=== PATIENT | female | born 1940 | race Caucasian/White ===

== ENCOUNTER → 2017-07-05 | Outpatient (CLI) | payer OTHER ==
--- NOTE | 2017-07-05 14:56 | REP ---
Left tib-fib series: Two views. History: Lower leg injury. Pain radiating up and down the leg. History of an old fracture. No comparison radiographs. Findings: There is mild old post-traumatic deformity from healed distal fibular and distal tibial diaphyseal fractures. No acute fracture is seen. There is patellofemoral spurring. Medial compartment spurring is seen at the knee as well. Impression: Old healed distal tibial and fibular fractures. No acute bony abnormality. Signed by Indio Kaur MD 07/05/2017 03:28 P
== END ==
LOC: M WUC 14:24
PROVIDERS: ATTEND Physician Assistant
DX: M79.662 Pain in left lower leg (principal)

== ENCOUNTER 2018-02-02 18:04 | Inpatient (IN) | payer OTHER ==
[2018-02-02 19:51] LABS: BASO # 0.1 10^3/uL (0.0-0.2); BASO % 0.9 % (0.0-1.0); EOS # 0.1 10^3/uL (0.0-0.50); EOS % 1.7 % (0.0-3.0); HEMATOCRIT 34.1 % (36.0-47.0); HEMOGLOBIN 11.8 g/dl (12.0-15.5); IMMATURE GRANULOCYTE % 0.3 % (0-3.0); LYMPH % 26.4 % (24.0-44.0); MEAN CORPUSCULAR HEMOGLOBIN 30.4 pg (27.0-33.0); MEAN CORPUSCULAR HGB CONC 34.6 g/dl (32.0-36.5); MEAN CORPUSCULAR VOLUME 87.9 fl (80.0-96.0); MONO # 0.8 10^3/uL (0.0-0.8); MONO % 9.7 % (0.0-5.0); NEUTROPHILS # 4.7 10^3/uL (1.8-7.7); PLATELET COUNT, AUTOMATED 278 10^3/uL (150-450); RED BLOOD COUNT 3.88 10^6/uL (4.00-5.40); RED CELL DISTRIBUTION WIDTH 11.2 % (11.5-14.5); WHITE BLOOD COUNT 7.7 10^3/uL (4.0-10.0)
[2018-02-02 20:00] LABS: INR 0.97
[2018-02-02 20:01] LABS: PARTIAL THROMBOPLASTIN TIME 28.8 SECONDS (26.8-37.9)
[2018-02-02 20:02] LABS: ANION GAP 7 MEQ/L (8-16); BLOOD UREA NITROGEN 13 MG/DL (7-18); CALCIUM LEVEL 9.1 MG/DL (8.8-10.2); CARBON DIOXIDE LEVEL 29 MEQ/L (21-32); CHLORIDE LEVEL 93 MEQ/L (98-107); CREATININE FOR GFR 0.86 MG/DL (0.55-1.30); GLOMERULAR FILTRATION RATE > 60.0 (>39); GLUCOSE, FASTING 119 MG/DL (70-100); POTASSIUM SERUM 3.7 MEQ/L (3.5-5.1); SODIUM LEVEL 129 MEQ/L (136-145)
[2018-02-02] MEDS: NS 500 ML IV (20:15)
[2018-02-02] MEDS: OMEPRAZOLE 20 MG CAP PO (21:00)
[2018-02-02] MEDS: SUCRALFATE 1 GM TAB PO (21:00)
[2018-02-02 22:11] LABS: KETONE, URINE AUTO RFX NEGATIVE (NEGATIVE); NITRITE, URINE AUTO RFX NEGATIVE (NEGATIVE); RBC, URINE AUTO RFX 0 /HPF (0-3); SPECIFIC GRAVITY UR AUTO RFX 1.002 (1.002-1.035); SQUAM EPITHELIAL CELL UR AURFX 0 /HPF (0-6); WBC, URINE AUTO RFX 3 /HPF (0-3)
[2018-02-02 22:12] LABS: LEUKOCYTE ESTERASE UR AUTO RFX TRACE (NEGATIVE)
[2018-02-02] MEDS: ASPIRIN 325 MG TAB PO (22:15)
[2018-02-02] MEDS: ATORVASTATIN 20 MG TAB PO (23:15)
[2018-02-02 23:38] LABS: CK-MB VALUE MASS 3.5 NG/ML (<3.6); CPK CREATINE PHOSPHOKINASE 118 U/L (26-192); MB/CK RELATIVE INDEX 2.96 (< OR =4); TROPONIN I < 0.02 NG/ML (< 0.10)
[2018-02-03] MEDS ORDERED: POLYVINYL ALCOHOL OPHTH SOLN 15 ML(LIQUITEARS) OU
[2018-02-03] MEDS ORDERED: ONDANSETRON 4MG/2ML VIAL (J2405) IV (00:15)
[2018-02-03 00:51] LABS: ALBUMIN 3.9 GM/DL (3.2-5.2); ALBUMIN/GLOBULIN RATIO 1.26 (1.00-1.93); ALKALINE PHOSPHATASE 76 U/L (45-117); ALT/SGPT 24 U/L (12-78); AST/SGOT 26 U/L (7-37); BILIRUBIN,DIRECT 0.3 MG/DL (0.0-0.2); BILIRUBIN,TOTAL 1.3 MG/DL (0.2-1.0); MAGNESIUM LEVEL 2.1 MG/DL (1.8-2.4)
[2018-02-03 01:43] LABS: CPK CREATINE PHOSPHOKINASE 87 U/L (26-192); TROPONIN I < 0.02 NG/ML (< 0.10)
[2018-02-03 01:44] LABS: CK-MB VALUE MASS 2.6 NG/ML (<3.6); MB/CK RELATIVE INDEX 2.98 (< OR =4)
[2018-02-03] MEDS: hydrALAZINE INJ 20 MG/ML VIAL IV ×3 (03:21→16:00)
[2018-02-03] MEDS: LEVOTHYROXINE 50MCG TABLET (0.05MG) PO (05:48)
[2018-02-03] MEDS: ACETAMINOPHEN TAB 650MG DOSE (2X325MG) PO (05:52)
[2018-02-03 07:40] LABS: HEMATOCRIT 31.5 % (36.0-47.0); HEMOGLOBIN 10.9 g/dl (12.0-15.5); MEAN CORPUSCULAR HEMOGLOBIN 30.3 pg (27.0-33.0); MEAN CORPUSCULAR HGB CONC 34.6 g/dl (32.0-36.5); MEAN CORPUSCULAR VOLUME 87.5 fl (80.0-96.0); PLATELET COUNT, AUTOMATED 232 10^3/uL (150-450); RED CELL DISTRIBUTION WIDTH 11.1 % (11.5-14.5); WHITE BLOOD COUNT 4.7 10^3/uL (4.0-10.0)
[2018-02-03 08:01] LABS: ANION GAP 6 MEQ/L (8-16); BLOOD UREA NITROGEN 10 MG/DL (7-18); CALCIUM LEVEL 8.6 MG/DL (8.8-10.2); CARBON DIOXIDE LEVEL 27 MEQ/L (21-32); CHLORIDE LEVEL 102 MEQ/L (98-107); CPK CREATINE PHOSPHOKINASE 68 U/L (26-192); CREATININE FOR GFR 0.67 MG/DL (0.55-1.30); GLOMERULAR FILTRATION RATE > 60.0 (>39); GLUCOSE, FASTING 89 MG/DL (70-100); POTASSIUM SERUM 3.7 MEQ/L (3.5-5.1); SODIUM LEVEL 135 MEQ/L (136-145); TROPONIN I < 0.02 NG/ML (< 0.10)
[2018-02-03 08:02] LABS: CK-MB VALUE MASS 2.7 NG/ML (<3.6); MB/CK RELATIVE INDEX 3.97 (< OR =4)
[2018-02-03] MEDS: ENOXAPARIN 30 MG/0.3 ML SYR (J1650) SC (08:28)
[2018-02-03] MEDS: ATORVASTATIN 20 MG TAB PO (08:30)
[2018-02-03] MEDS: ASPIRIN 81 MG ENTERIC TAB PO (08:30)
[2018-02-03] MEDS: OMEPRAZOLE 20 MG CAP PO ×2 (08:30→20:51)
[2018-02-03] MEDS: SUCRALFATE 1 GM TAB PO (08:30)
[2018-02-03] MEDS: DOCUSATE SODIUM 100 MG CAP PO ×2 (08:30→20:51)
[2018-02-03] MEDS: FLUTICASONE PROP 0.05% NASAL SPRAY 16 GM (FLONASE) ×2 (08:31→20:52)
[2018-02-03] MEDS: ANALGESIC BALM CRM 120 GM TOP (09:25)
[2018-02-03] MEDS: SUCRALFATE SUSP 1GM/10ML UD PO ×3 (12:29→20:51)
[2018-02-03] MEDS: LISINOPRIL 20 MG TAB PO (17:32)
[2018-02-03] MEDS: hydroCHLOROthiazide 12.5 MG CAPSULE PO (17:32)
[2018-02-03] MEDS ORDERED: ENTER DRUG NAME HERE (PATIENT'S OWN MED) OU (21:00)
[2018-02-04] MEDS: ACETAMINOPHEN TAB 650MG DOSE (2X325MG) PO (03:48)
[2018-02-04] MEDS: LEVOTHYROXINE 50MCG TABLET (0.05MG) PO (05:54)
[2018-02-04 06:04] LABS: BASO # 0.1 10^3/uL (0.0-0.2); BASO % 1.7 % (0.0-1.0); EOS # 0.2 10^3/uL (0.0-0.50); EOS % 3.3 % (0.0-3.0); HEMATOCRIT 32.7 % (36.0-47.0); IMMATURE GRANULOCYTE % 0.2 % (0-3.0); LYMPH # 1.1 10^3/uL (1.5-4.5); LYMPH % 22.4 % (24.0-44.0); MEAN CORPUSCULAR HEMOGLOBIN 30.1 pg (27.0-33.0); MEAN CORPUSCULAR HGB CONC 33.6 g/dl (32.0-36.5); MEAN CORPUSCULAR VOLUME 89.6 fl (80.0-96.0); MONO # 0.7 10^3/uL (0.0-0.8); MONO % 13.6 % (0.0-5.0); NEUTROPHILS # 2.8 10^3/uL (1.8-7.7); NEUTROPHILS % 58.8 % (36.0-66.0); PLATELET COUNT, AUTOMATED 240 10^3/uL (150-450); RED BLOOD COUNT 3.65 10^6/uL (4.00-5.40); RED CELL DISTRIBUTION WIDTH 11.1 % (11.5-14.5); WHITE BLOOD COUNT 4.8 10^3/uL (4.0-10.0)
[2018-02-04 06:33] LABS: ANION GAP 7 MEQ/L (8-16); BLOOD UREA NITROGEN 8 MG/DL (7-18); CALCIUM LEVEL 8.3 MG/DL (8.8-10.2); CARBON DIOXIDE LEVEL 24 MEQ/L (21-32); CHLORIDE LEVEL 103 MEQ/L (98-107); CREATININE FOR GFR 0.63 MG/DL (0.55-1.30); GLOMERULAR FILTRATION RATE > 60.0 (>39); GLUCOSE, FASTING 88 MG/DL (70-100); POTASSIUM SERUM 3.8 MEQ/L (3.5-5.1); SODIUM LEVEL 134 MEQ/L (136-145)
[2018-02-04] MEDS: LISINOPRIL 20 MG TAB PO (08:31)
[2018-02-04] MEDS: OMEPRAZOLE 20 MG CAP PO (08:31)
[2018-02-04] MEDS: SUCRALFATE SUSP 1GM/10ML UD PO ×2 (08:31→11:07)
[2018-02-04] MEDS: DOCUSATE SODIUM 100 MG CAP PO (08:31)
[2018-02-04] MEDS: hydroCHLOROthiazide 12.5 MG CAPSULE PO (08:31)
[2018-02-04] MEDS: ASPIRIN 81 MG ENTERIC TAB PO (08:31)
[2018-02-04] MEDS: FLUTICASONE PROP 0.05% NASAL SPRAY 16 GM (FLONASE) (08:32)
[2018-02-04] MEDS: ENOXAPARIN 30 MG/0.3 ML SYR (J1650) SC (08:32)
[2018-02-04] MEDS: ATORVASTATIN 20 MG TAB PO (11:07)
== END 2018-02-04 12:00 | disposition home or self-care (01) | DRG 69 ==
LOC: M ED INP 23:56 → M PCU 02-03 03:04 → M ED 18:04
DX: G45.9 Transient cerebral ischemic attack, unspecified (principal); I10 Essential (primary) hypertension; E78.5 Hyperlipidemia, unspecified; E03.9 Hypothyroidism, unspecified; M19.90 Unspecified osteoarthritis, unspecified site; H40.9 Unspecified glaucoma; K58.9 Irritable bowel syndrome, unspecified; Z88.5 Allergy status to narcotic agent; Z88.0 Allergy status to penicillin; Z88.8 Allergy status to other drugs, medicaments and biological substances; K21.9 Gastro-esophageal reflux disease without esophagitis; K57.30 Diverticulosis of large intestine without perforation or abscess without bleeding; K22.70 Barrett's esophagus without dysplasia

== ENCOUNTER → 2018-10-06 | Outpatient (REF) | payer MEDICARE, OTHER ==
[~2018-10-06] MED LIST: ASPI1TAB PO; ASPI81TAEC PO; ATOR1TAB21 PO; ATOR40TA75 PO; BIMA01SOL; BIMA01SOL OU; BIOF4GEL2 EXT; LEVO125T4; LEVO50TA5 PO; LISI10TA4 PO; LISI20TA PO; OMEP20CA3 PO; PARO10TA3 PO; PARO5TAB; SUCR1TAB56; SUCR1TAB56 PO; SYNT50TA PO; SYST1SOL OU
== END ==
LOC: M SFHCPLAZ 09:57
PROVIDERS: ATTEND Dermatology
DX: L57.0 Actinic keratosis (principal); L56.8 Other specified acute skin changes due to ultraviolet radiation

== ENCOUNTER 2019-05-27 19:45 | Inpatient (IN) | payer MEDICARE, OTHER ==
[~2019-05-27] VITALS: Ht 154.9 cm; Wt 61.4 kg
[~2019-05-27 19:45] MED LIST changes: -ASPI1TAB PO; +ASPI81TA26 PO; -LISI20TA PO; +LISI20TA19 PO; +OMEP1CAP73 PO; -OMEP20CA3 PO
[2019-05-27] MEDS ORDERED: GABA-1171 (20:01)
[2019-05-27] MEDS ORDERED: TERA5CAP3 (20:01)
[2019-05-27 20:26] LABS: BASO # 0.1 10^3/uL (0.0-0.2); EOS # 0.1 10^3/uL (0.0-0.5); EOS % 2.6 % (0.0-3.0); HEMATOCRIT 32.7 % (36.0-47.0); HEMOGLOBIN 10.6 g/dl (12.0-15.5); LYMPH # 1.5 10^3/uL (1.5-5.0); LYMPH % 29.2 % (24.0-44.0); MEAN CORPUSCULAR HEMOGLOBIN 28.9 pg (27.0-33.0); MEAN CORPUSCULAR HGB CONC 32.4 g/dl (32.0-36.5); MEAN CORPUSCULAR VOLUME 89.1 fl (80.0-96.0); MONO # 0.5 10^3/uL (0.0-0.8); MONO % 10.7 % (0.0-5.0); NEUTROPHILS # 2.8 10^3/uL (1.5-8.5); NEUTROPHILS % 56.3 % (36.0-66.0); PLATELET COUNT, AUTOMATED 179 10^3/uL (150-450); RED BLOOD COUNT 3.67 10^6/uL (4.00-5.40)
[2019-05-27 20:37] LABS: INR 1.06; PROTHROMBIN TIME 13.5 SECONDS (11.8-14.0)
--- NOTE | 2019-05-27 20:42 | REPVR ---
EXAM: CT Head Without Contrast EXAM DATE/TIME: 05/27/2019 8:18 PM CLINICAL HISTORY: 79 years old, female; Syncope and collapse TECHNIQUE: Imaging protocol: Computed tomography of the head without contrast. Radiation optimization: All CT scans at this facility use at least one of these dose optimization techniques: automated exposure control; mA and/or kV adjustment per patient size (includes targeted exams where dose is matched to clinical indication); or iterative reconstruction. COMPARISON: CT Head without contrast 04/02/2018 11:35 AM FINDINGS: Brain: There is minimal parenchymal volume loss. White matter changes are demonstrated in the subcortical, centrum semiovale and periventricular white matter consistent with small vessel white matter angiopathic gliosis. Ventricles: Normal. No ventriculomegaly. Bones/joints: There is hyperostosis frontalis interna. Sinuses: Visualized sinuses are unremarkable. No fluid levels. Mastoid air cells: Visualized mastoid air cells are well aerated. Soft tissues: Unremarkable. IMPRESSION: There is minimal parenchymal volume loss. White matter changes are demonstrated in the subcortical, centrum semiovale and periventricular white matter consistent with small vessel white matter angiopathic gliosis. Electronically signed by: Arash James On 05/27/2019 20:42:09 PM
[2019-05-27 21:06] LABS: BLOOD UREA NITROGEN 17 MG/DL (7-18); CALCIUM LEVEL 8.7 MG/DL (8.8-10.2); CARBON DIOXIDE LEVEL 24 MEQ/L (21-32); CHLORIDE LEVEL 107 MEQ/L (98-107); CPK CREATINE PHOSPHOKINASE 133 U/L (26-192); CREATININE FOR GFR 0.98 MG/DL (0.55-1.30); GLOMERULAR FILTRATION RATE 58.4 (>39); GLUCOSE, FASTING 73 MG/DL (70-100); MB/CK RELATIVE INDEX 2.26 (< OR =4); SODIUM LEVEL 140 MEQ/L (136-145); TROPONIN I < 0.02 NG/ML (< 0.10)
[2019-05-27] MEDS ORDERED: OMEP-218 PO (22:10)
[2019-05-27] MEDS ORDERED: BIMA01SOL OU (22:10)
[2019-05-27] MEDS ORDERED: LISI10TA15 PO (22:10)
[2019-05-27] MEDS ORDERED: NEUR100C PO (22:10)
[2019-05-27] MEDS ORDERED: PARO1TAB33 PO (22:10)
[2019-05-27] MEDS ORDERED: TERA5CAP3 PO (22:10)
--- NOTE | 2019-05-27 22:13 | HPEPDOC ---
[facility] Medical History & Physical Date of Admission May 27, 2019 Date of Service: May 27, 2019 Primary Care Physician: A Other Provider Ramiro Ortiz MD Attending Physician: LLOYD CARR MD History and Physical TIME OF SERVICE: 11:15 PM CHIEF COMPLAINT: Fall HISTORY OF PRESENT ILLNESS: This is a 79 old female who presented to the ED for evaluation after falling 6 times over the last 24 hours. She attributes the fall to her legs "not working", reports having decreased sensation in both legs, which is new, and reports that her legs felt "like lead". She did hit her head but denies losing consciousness. After the last fall her children found her lying down on the floor and brought her to the ED. Other new symptoms include urinary incontinence; she feels like she is leaking urine all the time and has to wear pads and diapers. She denies having fecal incontinence, denies having fevers, denies having chills, denies having abdominal pain. REVIEW OF SYSTEMS: 12 point review of systems negative except as listed in HPI PAST MEDICAL/ SURGICAL HISTORY: Spinal stenosis. Chronic hypertension. Hypothyroidism TIA Dyslipidemia Osteoarthritis. Glaucoma IBS GERD Esophageal stricture. Diverticulosis. 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 Status post bladder suspension surgery SOCIAL HISTORY: Former smoker FAMILY HISTORY: Coronary artery disease. Lung cancer. Skin cancer ALLERGIES: Please see below. HOME MEDICATIONS: Please see below. PHYSICAL EXAMINATION: VITAL SIGNS: Please see below. GENERAL APPEARANCE: Slim build, well-developed, not in apparent distress HEENT: Normocephalic, atraumatic, mucous members moist and pink CARDIOVASCULAR: Regular rate and rhythm, no murmurs, rubs or gallops. Radial pulses are intact. There is no lower extremity edema LUNGS: Clear to auscultation bilaterally on room air ABDOMEN: Soft and nontender on palpation. Bowel sounds are hypoactive : Rectal tone intact./Perineal sensation to blunt needle intact MUSCULOSKELETAL: Range of motion intact in all 4 extremities. Straight leg test is negative bilaterally NEUROLOGICAL: Cranial nerves II-12 are grossly intact, speech is not dysarthric, deep tendon reflexes are hyperactive at the right patella tendon. There is no clonus PSYCHIATRIC: Alert and oriented to person, place and time, able to understand and follow commands LABORATORY DATA: See below. EKG showed normal sinus rhythm with a heart rate is 72 IMAGING: CT of the head showed minimal per, volume loss and small vessel white matter angiopathic gliosis. MRI of the lumbar spine shows decreased marrowsignal in the lumbar vertebrae on T1 weighted images consistent with underlying myeloproliferative abnormality of chronic anemia . There is also multilevel foraminal stenosis. It is mild at L2- L3, moderate at L3-L4, severe at L4-L5 and moderate at L5-S1 MRI of the brain showed findings consistent with an acute to subacute left thalamic infarct MRA of the brain showed luminal irregularity in mental cranial carotid arteries bilaterally without evidence of high-grade stenosis MICROBIOLOGY: Please see below. ASSESSMENT: Ms. Rosenberg is a 79-year-old female with a past medical history of TIA, hypertension, hypothyroidism, osteoarthritis, and spinal stenosis, who will be admitted for evaluation of weakness and falls, likely secondary to severe L4-L5 stenosis. PLAN: 1.Acute/ Subacute left thalamic infarct From the CT, MRI and MRI of the head as listed above. Unlikely that the thalamic infarct contributing to the fall Plan: Telemetry/ f/u lipid panel for ACVD risk score, A1C, TSH / f/u neuro checks / permissive hypertension for 24 hours/glycemic goal between 140-180/ PT consult / ASA & statin /Neurology consult 2. Lower extremity weakness and falls secondary to severe L4-L5 central spine stenosis CT of the head did not show any acute process. MRI of the lumbar spine showed severe foraminal stenosis at L4-5 The patient has urinary incontinence but perineal sensation is intact Plan: Decadron /fall precautions/after Ortho eval pt can be evaluated by physical therapy 3. Moderate L5-S1 foraminal stenosis. She has urinary incontinence which has been getting worse recently. UA is unremarkable Perineal sensation to blunt needle is intact. Postvoid residual volume after placing Ritchie is 17 ml Plan: Follow up with Ortho and PT 4. Normocytic normochromic anemia. Hemoglobin at baseline Plan: Follow up with PCP for additional testing 5. Chronic hypertension Plan: Continue the home meds 6. Hypothyroidism Plan: Continue the home meds 7. hx of TIA / Dyslipidemia Plan: Continue the home meds 8. OA Plan: Continue the home meds 9. Low BMI. BMI 19.9 DVT prophylaxis with Lovenox Disposition pending clinical course Vital Signs Vital Signs Date Time Temp Pulse Resp B/P (MAP) Pulse Ox O2 Delivery O2 Flow Rate FiO2 05/27/19 21:47 84 05/27/19 21:46 174/73 (106) 05/27/19 20:32 98 05/27/19 20:13 20 05/27/19 19:46 98.1 Room Air Laboratory Data Labs 24H Laboratory Tests 2 05/27/19 20:12: Immature Granulocyte % (Auto) 0.2, White Blood Count 5.0, Red Blood Count 3.67L, Hemoglobin 10.6L, Hematocrit 32.7L, Mean Corpuscular Volume 89.1, Mean Corpuscular Hemoglobin 28.9, Mean Corpuscular Hemoglobin Concent 32.4, Red Cell Distribution Width 13.1, Platelet Count 179, Neutrophils (%) (Auto) 56.3, Lymphocytes (%) (Auto) 29.2, Monocytes (%) (Auto) 10.7H, Eosinophils (%) (Auto) 2.6, Basophils (%) (Auto) 1.0, Neutrophils # (Auto) 2.8, Lymphocytes # (Auto) 1.5, Monocytes # (Auto) 0.5, Eosinophils # (Auto) 0.1, Basophils # (Auto) 0.1, Nucleated Red Blood Cells % (auto) 0.0, Prothrombin Time 13.5, Prothromb Time International Ratio 1.06, Urine Color STRAW, Urine Appearance CLEAR, Urine pH 5.0, Urine Specific Pitcher 1.004, Urine Protein NEGATIVE, Urine Glucose (UA) NEGATIVE, Urine Ketones NEGATIVE, Urine Blood NEGATIVE, Urine Nitrite NEGATIVE, Urine Bilirubin NEGATIVE, Urine Urobilinogen 0.2, Urine Leukocyte Esterase NEGATIVE, Urine WBC (Auto) 0, Urine RBC (Auto) 1, Urine Hyaline Casts (Auto) 0, Urine Bacteria (Auto) NEGATIVE, Urine Squamous Epithelial Cells 0, Urine Mucus (Auto) SMALL, Urine Sperm (Auto) , Anion Gap 9, Glomerular Filtration Rate 58.4, Blood Urea Nitrogen 17, Creatinine 0.98, Sodium Level 140, Potassium Level 4.0, Chloride Level 107, Carbon Dioxide Level 24, Calcium Level 8.7L, Total Creatine Kinase 133, Creatine Kinase MB 3.0, Creatine Kinase MB Relative Index 2.26, Troponin I < 0.02, Thyroid Stimulating Hormone (TSH) 1.290 05/27/19 20:24: Bedside Glucose (Misc Panel) 79L CBC/BMP Laboratory Tests 05/27/19 20:12 Red Blood Count 3.67 L, Mean Corpuscular Volume 89.1, Mean Corpuscular Hemo globin 28.9, Mean Corpuscular Hemoglobin Concent 32.4, Red Cell Distribution Width 13.1, Neutrophils (%) (Auto) 56.3, Lymphocytes (%) (Auto) 29.2, Monocytes (%) (Auto) 10.7 H, Eosinophils (%) (Auto) 2.6, Basophils (%) (Auto) 1.0, Neutrophils # (Auto) 2.8, Lymphocytes # (Auto) 1.5, Monocytes # (Auto) 0.5, Eosinophils # (Auto) 0.1, Basophils # (Auto) 0.1, Calcium Level 8.7 L, Total Creatine Kinase 133 Home Medications Scheduled Aspirin (Aspirin EC) 81 Mg Tab, 81 MG PO DAILY Atorvastatin Calcium (Atorvastatin Calcium) 40 Mg Tab, 40 MG PO DAILY Bimatoprost (Lumigan) 0.01% 2.5ML Drops, 1 DROP OU QHS Gabapentin (Neurontin) 100 Mg Capsule, 100 MG PO DAILY Levothyroxine Sodium (Synthroid) 50 Mcg Tab, 50 MCG PO DAILY Lisinopril/Hydrochlorothiazide (Lisinopril-Hctz 10-12.5 mg Tab) 1 Each Tablet, 1 TAB PO DAILY Omeprazole (Omeprazole) 20 Mg Capsule.dr, 20 MG PO DAILY Paroxetine HCl (Paroxetine HCl) 20 Mg Tablet, 20 MG PO DAILY Terazosin HCl (Terazosin HCl) 5 Mg Capsule, 5 MG PO QHS Allergies Coded Allergies: Penicillins (Verified Allergy, Severe, THROAT CLOSES, 05/27/19) THROAT CLOSES meperidine (Verified Allergy, Severe, ANAPHYLAXIS, 05/27/19) A-FIB/CHADSVASC A-FIB History Current/History of A-Fib/PAF?: No Current PO Anticoag Therapy: No LLOYD CARR MD May 27, 2019 22:13
--- NOTE | 2019-05-27 22:56 | REPVR ---
EXAM: MR Head Without Contrast EXAM DATE/TIME: 05/27/2019 10:25 PM CLINICAL HISTORY: 79 years old, female; Weakness, extremity; Bilateral; Patient HX: Per patient, legs kept going out, showing some incontinence. Jf; Additional info: B/l lower extremity weakness TECHNIQUE: Imaging protocol: MR of the head without contrast. COMPARISON: MRI-Brain without Contrast 02/03/2018 2:25 AM FINDINGS: Brain: Focus of abnormal diffusion weighted and ADC map signal in the left thalamus barely visible on flair weighted imaging consistent with an acute to subacute left thalamic infarct. Multiple foci of T2 lengthening are demonstrated in the subcortical, periventricular, centrum semiovale and pontine white matter consistent with age-related small vessel gliosis. Mild parenchymal volume loss consistent with patient age. Chronic lacunar infarct right basal ganglia. Ventricles: Normal. No ventriculomegaly. Bones/joints: Unremarkable. Soft tissues: Normal. Sinuses: Normal as visualized. No acute sinusitis. Mastoid air cells: Normal as visualized. No mastoid effusion. Orbits: Unremarkable. IMPRESSION: 1. Focus of abnormal diffusion weighted and ADC map signal in the left thalamus barely visible on flair weighted imaging consistent with an acute to subacute left thalamic infarct. 2. Multiple foci of T2 lengthening are demonstrated in the subcortical, periventricular, centrum semiovale and pontine white matter consistent with age-related small vessel gliosis. Electronically signed by: Arash James On 05/27/2019 22:55:38 PM
--- NOTE | 2019-05-27 22:59 | REPVR ---
EXAM: MR Angiogram Head Without Contrast, Arteries EXAM DATE/TIME: 05/27/2019 10:25 PM CLINICAL HISTORY: 79 years old, female; Weakness; Patient HX: Per patient, legs kept going out, showing some incontinence. Jf; Additional info: B/l lower extremity weakness TECHNIQUE: Imaging protocol: MR angiogram head without contrast. Exam focused on the arteries. 3D rendering: MIP reconstructed images were created and reviewed. COMPARISON: MRA BRAIN W/O CONTRAST 02/03/2018 2:25 AM FINDINGS: Right internal carotid artery: Mild luminal irregularity in the petrosal and cavernous segments of the internal carotid artery on the right consistent with mild atherosclerotic disease. No high-grade stenosis. Right anterior cerebral artery: Unremarkable. No occlusion or significant stenosis. No aneurysm. Right middle cerebral artery: Unremarkable. No occlusion or significant stenosis. No aneurysm. Right posterior cerebral artery: Unremarkable. No occlusion or significant stenosis. No aneurysm. Right vertebral artery: Unremarkable. No occlusion or significant stenosis. No aneurysm. Left internal carotid artery: Mild luminal irregularity in the petrosal and cavernous segments of the internal carotid artery on the left consistent with mild atherosclerotic disease. No high-grade stenosis. Left anterior cerebral artery: Unremarkable. No occlusion or significant stenosis. No aneurysm. Left middle cerebral artery: Unremarkable. No occlusion or significant stenosis. No aneurysm. Left posterior cerebral artery: Unremarkable. No occlusion or significant stenosis. No aneurysm. Left vertebral artery: Unremarkable. No occlusion or significant stenosis. No aneurysm. Basilar artery: Unremarkable. No occlusion or significant stenosis. No aneurysm. IMPRESSION: 1. Luminal irregularity in the intracranial carotid arteries bilaterally consistent with atherosclerotic changes without evidence of a high-grade stenosis. 2. Otherwise unremarkable. Electronically signed by: Arash James On 05/27/2019 22:59:10 PM
--- NOTE | 2019-05-27 23:04 | REPVR ---
EXAM: MR Lumbar Spine Without Contrast. EXAM DATE/TIME: 05/27/2019 10:25 PM CLINICAL HISTORY: 79 years old, female; Weakness; Patient HX: Per patient, legs kept going out, showing some incontinence. Jf; Additional info: B/l lower extremity weakness TECHNIQUE: Imaging protocol: Multiplanar magnetic resonance images of the lumbar spine without intravenous contrast. COMPARISON: No relevant prior studies available. FINDINGS: Vertebrae: Decreased marrow space signal in the lumbar vertebrae on T1 weighted images consistent with an underlying myeloproliferative abnormality or chronic anemia. Spinal cord: Normal signal. No cord compression. L1-L2: Diffusely bulging annulus at L1-L2 without central spinal stenosis. No lateral recess or foraminal stenosis. L2-L3: There is a mild central spinal stenosis at L2-L3 secondary to diffuse annular bulging, thickened ligamentum flavum and facet joint arthropathy. No lateral recess or foraminal stenosis. L3-L4: There is a moderate central spinal stenosis at L3-L4 secondary to diffuse annular bulging, thickened ligamentum flavum and facet joint arthropathy. No lateral recess stenosis. Mild bilateral foraminal narrowing. L4-L5: There is a severe central spinal stenosis at L4-5 secondary to diffuse annular bulging, thickened ligamentum flavum and facet joint arthropathy. Mild bilateral lateral recess narrowing. Moderate bilateral foraminal narrowing. L5-S1: There is a moderate central spinal stenosis at L5-S1 secondary to diffuse annular bulging, thickened ligamentum flavum and facet joint arthropathy. Mild bilateral lateral recess narrowing. Mild to moderate bilateral foraminal narrowing. Soft tissues: Unremarkable. IMPRESSION: 1. Decreased marrow space signal in the lumbar vertebrae on T1 weighted images consistent with an underlying myeloproliferative abnormality or chronic anemia. 2. Multilevel foraminal stenoses, mild at L2-L3, moderate at L3-L4, severe at L4-L5, and moderate L5-S1. Electronically signed by: Arash James On 05/27/2019 23:04:03 PM
[2019-05-27 23:40] VITALS: BP 150/78
[2019-05-28] MEDS ORDERED: dexameTHASONE 20 MG/5 ML VIAL (J1100) IV ONE (00:45)
[2019-05-28] MEDS ORDERED: NS IV ONE (02:00)
[2019-05-28] MEDS ORDERED: DEXAMETHASONE IV ONE (02:00)
[2019-05-28] MEDS: TERAZOSIN 5 MG CAP PO SCH ×2 (03:02→21:30)
[2019-05-28] MEDS: LEVOTHYROXINE 50MCG TABLET (0.05MG) PO SCH (05:56)
[2019-05-28 06:00] VITALS: BP 133/76
[2019-05-28 06:13] LABS: HEMATOCRIT 32.6 % (36.0-47.0); HEMOGLOBIN 10.7 g/dl (12.0-15.5); MEAN CORPUSCULAR HEMOGLOBIN 29.6 pg (27.0-33.0); MEAN CORPUSCULAR HGB CONC 32.8 g/dl (32.0-36.5); MEAN CORPUSCULAR VOLUME 90.3 fl (80.0-96.0); PLATELET COUNT, AUTOMATED 179 10^3/uL (150-450); RED BLOOD COUNT 3.61 10^6/uL (4.00-5.40); WHITE BLOOD COUNT 5.6 10^3/uL (4.0-10.0)
[2019-05-28 06:38] LABS: BLOOD UREA NITROGEN 15 MG/DL (7-18); CALCIUM LEVEL 8.8 MG/DL (8.8-10.2); CARBON DIOXIDE LEVEL 28 MEQ/L (21-32); CHLORIDE LEVEL 107 MEQ/L (98-107); CHOLESTEROL LEVEL 159 MG/DL (<200); CHOLESTEROL RISK RATIO 1.419 (<5); CREATININE FOR GFR 0.78 MG/DL (0.55-1.30); GLOMERULAR FILTRATION RATE > 60.0 (>39); GLUCOSE, FASTING 99 MG/DL (70-100); HDL CHOLESTEROL 112 MG/DL (>40); LDL CHOLESTEROL 39 MG/DL (<100); NON-HDL-C 47 MG/DL; POTASSIUM SERUM 3.9 MEQ/L (3.5-5.1); SODIUM LEVEL 140 MEQ/L (136-145); TRIGLYCERIDES LEVEL 41 MG/DL (<150)
[2019-05-28 06:41] LABS: HEMOGLOBIN A1c 5.5 %
--- NOTE | 2019-05-28 07:15 | ECGEPIP ---
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
--- NOTE | 2019-05-28 08:27 | CR ---
DATE OF CONSULTATION: 05/28/2019 CHIEF COMPLAINT: Leg numbness. HISTORY OF PRESENT ILLNESS: This 79-year-old female presented to the emergency department late last evening. She had a number of falls over the last 24 hours. I was called to assess her by the attending physician Dr. Maddox. According to her report, the patient had attributed the falls to her legs "not working." She says that there is decreased sensation of both her legs, which is new and present for the last 7 days and staying the same not getting any better or worse. She is quite confused as to where the numbness and tingling exactly really even is but on further questioning, perhaps it is from the knees down in both legs, same on both sides. She has never had anything like this before. She does state that there is a little bit of pain in her lower back. She normally walks without ambulatory aids. When I asked her when the last time she walked, she was a little bit confused perhaps a month ago or even a day ago. In terms of her bowel or bladder function, she states that she has normal perianal sensation. There is no loss of bowel control or soiling herself. She does have some urinary loss. However, a number of years ago, she apparently she did have a bladder surgery and this is at her baseline according to her. She denies other constitutional symptoms such as fever, chills, abdominal pain or any other symptoms. PAST MEDICAL/PAST SURGICAL HISTORY: Chronic hypertension. Hypothyroidism. Transient ischemic attack (TIA. Dyslipidemia. Osteoarthritis. Glaucoma. Irritable bowel syndrome (IBS. Gastroesophageal reflux disease (GERD) Esophageal stricture. Diverticulosis. Post abdominal total hysterectomy. 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 Status post bladder suspension surgery. HOME MEDICATIONS INCLUDE: - ASA 81 mg by mouth once daily - atorvastatin 40 mg by mouth once daily - eye drops - gabapentin 100 mg by mouth once daily - L-thyroxine 50 mcg gram tablets by mouth once daily - lisinopril/hydrochlorothiazide 10/12.5 mg by mouth once daily - omeprazole 20 mg by mouth once daily - paroxetine 20 mg by mouth daily - terazosin 5 mg by mouth nightly ALLERGIES: PENICILLIN and MEPERIDINE. SOCIAL HISTORY: She is a former smoker. Apparently she has children in the area. She was a little bit vague on this or even who helped her present to the emergency department (ED). She had otherwise independent ambulator, she states. PHYSICAL EXAM: Vital signs: This morning temperature 98.3. Blood pressure 133/76. Pulse rate 71. Respiratory rate 18. 96% on room air. She was asleep, however, she arouses easily. She was alert and oriented. Slight confusion but responds appropriately to questions and interactions. She was able to sit up in bed. I was not able to get her to stand. On inspection of her spine, reveals no obvious overlying redness, swelling, ecchymosis, deformity or atrophy. There is a slight degenerative scoliosis in the thoracic spine. A little bit to the right of center tenderness in her lumbar spine around L3. No obvious steps or gaps. No obvious bony midline tenderness. Rectal: Exam was normal. Normal tone. Normal deep anal pressure. Normal light touch and pinprick sensation from S2-S4. In terms of lower extremities, she had normal sensation to light touch and pinprick from L2 through S1 throughout the lower extremities. Strength was also good 5/5 from L2 to S1. Reflexes were 2+ and symmetric at the knees. 1+ symmetric at the ankles. No hyperreflexia or clonus. Plantars are downgoing. She had well-perfused feet. Palpable dorsalis pedis pulses but slightly weak on both sides. Laboratory examination revealed hemoglobin of 10.7. INR 1.06. PT 13.5. Normal electrolytes. Urine was clear. IMAGING STUDIES: Lumbar spine MRI demonstrated decreased marrow signal in the lumbar vertebrae on T1-weighted images consistent with an underlying myeloproliferative abnormality or chronic anemia. Multilevel foraminal stenosis, mild at L2-3. Moderate L3-L4 severe L4-L5 at moderate L5-S1. Tissues are unremarkable. Spinal cord has a normal signal. No cord compression. There is mild bilateral foraminal narrowing at L3-L4. There is moderate bilateral foraminal narrowing at L4-L5. There is mild bilateral lateral recesses narrowing at L5-S1. ASSESSMENT/PLAN: This 79-year-old female has lower extremity neurologic complaints. This does not seem consistent with a cauda equina syndrome given her abnormal neurologic exam. Slight subjective sensations of numbness in her lower extremities. I suggest neurology consult. I will also ask Dr. Pedroza, the spine surgeon, [facility] for his opinion on the case. I suggest also consideration of pain service consult. I thank Dr. Maddox, the harness worker for their help with this patient. For now I see no reason for acute surgical intervention.
[2019-05-28] MEDS ORDERED: ENOXAPARIN 40 MG/0.4 ML SYRINGE (J1650) SC SCH (09:00)
[2019-05-28] MEDS ORDERED: MAG SULF 1GM/100ML (MAG RUN) 1 GM in IV 1 EA IV ONE (09:00)
[2019-05-28] MEDS ORDERED: OMEPRAZOLE 20 MG CAP PO SCH (09:00)
[2019-05-28] MEDS ORDERED: POTASSIUM CHLORIDE 10 MEQ SR TABLET PO ONE (09:00)
[2019-05-28] MEDS: lisinopriL 10 MG TAB PO SCH (10:15)
[2019-05-28] MEDS: hydroCHLOROthiazide 12.5 MG CAPSULE PO SCH (10:15)
[2019-05-28] MEDS: ATORVASTATIN 20 MG TAB PO SCH (10:15)
[2019-05-28] MEDS: PARoxetine 20 MG TAB PO SCH (10:16)
[2019-05-28] MEDS: ASPIRIN 81 MG ENTERIC TAB PO SCH (10:16)
[2019-05-28] MEDS: dexameTHASONE 20 MG/5 ML VIAL (J1100) IV SCH ×2 (10:16→16:45)
[2019-05-28] MEDS: GABAPENTIN 100 MG CAP PO SCH (10:16)
[2019-05-28] MEDS: SUCRALFATE SUSP 1GM/10ML UD PO SCH ×2 (12:00→16:45)
[2019-05-28] MEDS ORDERED: GI COCKTAIL 50ML BTL(HYOSCYAMINE/MAALOX/LIDOCAINE VISCOUS)(1:3:1) PO PRN (12:00)
[2019-05-28 14:00] VITALS: BP_SYST 120; BP_SYST 130; BP_DIAS 75; BP_DIAS 85
[2019-05-28] MEDS ORDERED: GI COCKTAIL 50ML BTL(HYOSCYAMINE/MAALOX/LIDOCAINE VISCOUS)(1:3:1) PO ONE (14:00)
[2019-05-28] MEDS ORDERED: ENOXAPARIN 30 MG/0.3 ML SYR (J1650) SC ONE (17:30)
[2019-05-28 17:32] LABS: HEMATOCRIT 32.6 % (36.0-47.0)
--- NOTE | 2019-05-28 18:55 | IPN ---
DATE: 05/28/2019 SUBJECTIVE: The patient continues to complain of lower extremity weakness, feeling like her legs are very heavy and giving out on her. She is worried about getting up and ambulating due to history of recurrent falls. She otherwise denies any upper extremity weakness. No changes in sensation of upper extremities. Per the family, the patient has had poor memory recently, has had worsening memory loss of loss of interest and sleeping more often. OBJECTIVE: PHYSICAL EXAMINATION: VITAL SIGNS: Temperature 98.3, pulse 71, respiratory rate 18, blood pressure (BP) 133/76, 96% on room air. GENERAL: The patient is awake, alert, oriented to herself, place and time. She answers questions appropriately. Face is symmetric. No facial drooping. Anicteric sclerae. No jaundice. No jugular venous distension. No thyromegaly or cervical lymphadenopathy. Tongue is midline. Currently at 45 degree head elevation in bed, unable to stand. Lungs are clear to auscultation. No wheezes,rales or rhonchi. Air entry is equal bilaterally. Some scoliosis noted. Heart:S1, S2, sinus rhythm. No murmurs, rubs or gallops. Abdomen is soft, nontender, nondistended. Extremities: No cyanosis, clubbing or pitting edema. Neurologically, the patient speaks in full sentences. She is awake, alert and oriented times three, able to state it is May 2019, fall season and that she is at [facility] in [facility]. Mini-mental status exam is 21. She is able to state the date, 05/2019, fall, that she is in [facility] on the 3rd of the [facility] in [facility]. She is able to say 3 objects and repeat them, ball, car and man. She was only able to say one serial 7, 93, then 89. Able to spell the word world backwards, dlrow. She was able to recall car and man from previous memory. She is able name and pen and paper. She was not able to say no if, ands or buts, then said no ifs or buts. She was able to follow commands by reading close your eyes and doing a command. She was able to write a short sentence saying, you better take some art lessons. She was able to take the paper in her left hand fold it in half and was able to place it on the bed. She was able to draw the two pentagons with all angles in place, but the overlap was incorrect. Total overall score was 21 out of 30 in the mini-mental status examination. Motor function is 5/5 times bilateral upper extremities. Lower extremities: Gait was not tested. Sensation was intact in the bilateral lower extremities to pinprick and light touch. The patient was 5/5 in bilateral lower extremities. Negative Babinski bilaterally. LABORATORY DATA: White count 5.6, hemoglobin 10.7, hematocrit 32.6, white count 179. Sodium 140, potassium 3.9, chloride 107, bicarbonate 28, BUN 15, creatinine 0.78, glucose of 99, A1c of 5.5, calcium 8.8, magnesium of 2. Triglycerides 41, total cholesterol 159, LDL 39, HDL 47, thyroid simulating hormone (TSH) of 2.080, INR of 1.06. Urinalysis: Straw, clear appearance, pH of 5, protein negative. Glucose, ketones, blood and nitrite negative. Bilirubin is negative. Leukocyte esterase is negative. White count 0, red blood cell 1, hyaline cast 0. Negative urine bacteria. IMAGING STUDY: Magnetic Resonance Imaging (MRI) of the brain 05/27/2019: Focus of abnormal diffusion, weighted in ADC map signal in the left thalamus, barely visible on flare weighted imaging consistent with an acute or subacute left thalamic infarct. Multiple foci of T2 lengthening are demonstrated in the subcortical periventricular centrum, semiovale and pontine white matter consistent with age-related small vessel gliosis, chronic lacunar infarct at the right basal ganglia. magnetic Resonance Angiography (MRA) of the head without contrast: Luminal irregularity in intracranial carotid arteries bilaterally consistent with atherosclerotic changes without evidence of high grade stenosis, otherwise unremarkable. Lumbar spine Magnetic Resonance Imaging (MRI): Decreased marrow space signal in lumbar vertebrae in T1 weighted images consistent with underlying myeloproliferative abnormality or chronic anemia. Multilevel foraminal stenosis mild at L2/L3, moderate at L3/4, severe at L4/5 and moderate L5/S1. ASSESSMENT AND PLAN: This is a 79-year-old female with chronic right basal ganglial infarct, acute and subacute left thalamic infarct presented with recurrent falls at home, found to have lumbosacral spinal stenosis, currently on aspirin with history of transient ischemic attack (TIA) and chronic aspirin 81 mg and Lipitor 40 mg admitted for acute or subacute left thalamic stroke, chronic basal ganglia, lacunar infarct and spinal stenosis in lumbosacral area without signs of cauda equina. CURRENT ISSUES: 1. Recurrent falls, most likely secondary to acute or subacute left thalamic infarct, as well as chronic right basal ganglial infarct complicated by spinal stenosis in lumbosacral area. She has no evidence of cauda equina syndrome and will be treated conservatively per Dr. Reveles, orthopedic surgery and Dr. Kasia day, spine surgeon in [facility]. The patient will benefit from pain management consultation, physical therapy (PT), occupational therapy (OT) and acute rehabilitation. 2. Acute/subacute left thalamic stroke. The patient is already on aspirin and Lipitor. Echocardiogram has been ordered. No carotid artery disease that is hemodynamically significant. Neurologist has been consulted. Echocardiogram has been ordered. She is kept in telemetry due to arrhythmia. Echocardiogram to rule out atrial ventricular thrombus. The patient is kept on neuro checks every 4 hours. Physical therapy (PT) has been consulted. She is kept on deep vein thrombosis (DVT) prophylaxis as well. 3. Gastroesophageal reflux disease. Complains of heartburn. The patient will be kept on Carafate and proton pump inhibitor (PPI). 4. Chronic hypertension. Will allow for some permissive hypertension due to subacute stroke. Currently on lisinopril 10 mg daily and hydrochlorothiazide. 5. Depression on chronic Paxil. 6. Hypothyroidism on Synthroid. 7. Urinary incontinence on Hytrin MTDD
[2019-05-28 22:00] VITALS: BP 166/89
[2019-05-29] MEDS: LEVOTHYROXINE 50MCG TABLET (0.05MG) PO SCH (05:36)
[2019-05-29 06:00] VITALS: BP 144/77
[2019-05-29 06:49] LABS: BASO % 0.2 % (0.0-1.0); HEMATOCRIT 29.9 % (36.0-47.0); HEMOGLOBIN 10.2 g/dl (12.0-15.5); LYMPH # 0.9 10^3/uL (1.5-5.0); MEAN CORPUSCULAR HEMOGLOBIN 30.4 pg (27.0-33.0); MEAN CORPUSCULAR HGB CONC 34.1 g/dl (32.0-36.5); MONO # 0.4 10^3/uL (0.0-0.8); MONO % 6.9 % (0.0-5.0); NEUTROPHILS # 4.3 10^3/uL (1.5-8.5); NEUTROPHILS % 76.4 % (36.0-66.0); PLATELET COUNT, AUTOMATED 172 10^3/uL (150-450); RED BLOOD COUNT 3.36 10^6/uL (4.00-5.40); WHITE BLOOD COUNT 5.6 10^3/uL (4.0-10.0)
[2019-05-29 07:11] LABS: ERYTHROCYTE SEDIMENTATION RATE 11 mm/hr (0-30)
[2019-05-29 07:13] LABS: BLOOD UREA NITROGEN 22 MG/DL (7-18); CALCIUM LEVEL 8.6 MG/DL (8.8-10.2); CARBON DIOXIDE LEVEL 27 MEQ/L (21-32); CHLORIDE LEVEL 104 MEQ/L (98-107); CREATININE FOR GFR 0.76 MG/DL (0.55-1.30); GLOMERULAR FILTRATION RATE > 60.0 (>39); GLUCOSE, FASTING 168 MG/DL (70-100); POTASSIUM SERUM 3.8 MEQ/L (3.5-5.1); RHEUMATOID FACTOR QUANT < 10.0 IU/ML (<15.0); SODIUM LEVEL 136 MEQ/L (136-145)
--- NOTE | 2019-05-29 07:25 | ECHO ---
DATE OF PROCEDURE: 05/28/2019 REFERRING PROVIDER: Dr. Jessica Ellis PATIENT LOCATION: Room 4234 REASON FOR ECHOCARDIOGRAM: SVT MEASUREMENTS: IVS 1.0 cm LV 4.2 cm LVPW 0.8 cm LA 3.2 cm Aorta 2.4 cm RV 3.3 cm IVC 2.2 cm DOPPLER MEASUREMENT: Peak velocity across the aortic valve 1.8 m/s Peak velocity across the LVOT 1.4 m/s Mitral E 0.67 Mitral A 0.91 with a ratio of 0.7 Maximum tricuspid valve velocity 2.6 m/s COMMENTS: 1. Normal left ventricular size, wall thickness, and normal global left ventricular systolic function. The estimated global left ventricular systolic ejection fraction is 60-65%. 2. Normal left atrium. 3. Normal right atrium and left ventricle. 4. The atrial septum appeared to be normal without evidence of defect or shunt. 5. Normal aortic root. 6. Small to moderate pericardial effusion noted, no evidence of cardiac tamponade. 7. Mildly calcified aortic valve with normal leaflet exertion. Mildly calcified mitral annulus with normal anterior valve leaflet motion. Normal tricuspid valve. The pulmonic valve and proximal pulmonary artery branches were not well visualized. 8. The inferior vena cava is normal in length, central venous pressure might be elevated. IMPRESSION: 1. Normal global left ventricular systolic function. There are some features of left ventricular diastolic dysfunction manifested abnormal relaxation. 2. Aortic sclerosis with aortic stenosis but with no aortic regurgitation. 3. Mitral annulus calcification with trace mitral regurgitation. 4. Mild tricuspid regurgitation with mild pulmonary hypertension. 5. Small to moderate pericardial effusion noted, no evidence of cardiac tamponade. 6. There are features of elevated central venous pressure, the inferior vena cava/IVC was mildly enlarged. MTDD
[2019-05-29] MEDS: PARoxetine 20 MG TAB PO SCH (10:02)
[2019-05-29] MEDS: GABAPENTIN 100 MG CAP PO SCH (10:02)
[2019-05-29] MEDS: lisinopriL 10 MG TAB PO SCH (10:02)
[2019-05-29] MEDS: FAMOTIDINE 20 MG TAB PO SCH ×2 (10:02→21:32)
[2019-05-29] MEDS: hydroCHLOROthiazide 12.5 MG CAPSULE PO SCH (10:02)
[2019-05-29] MEDS: ASPIRIN 81 MG ENTERIC TAB PO SCH (10:02)
[2019-05-29] MEDS: CLOPIDOGREL 75 MG TAB PO SCH (10:02)
[2019-05-29] MEDS: SUCRALFATE SUSP 1GM/10ML UD PO SCH ×3 (10:03→17:52)
[2019-05-29] MEDS: ATORVASTATIN 20 MG TAB PO SCH (10:03)
[2019-05-29] MEDS: ENOXAPARIN 30 MG/0.3 ML SYR (J1650) SC SCH (10:03)
--- NOTE | 2019-05-29 12:36 | CR ---
DATE OF CONSULTATION: 05/29/2019 REFERRING PHYSICIAN: Dr. Ramiro Reveles. REASON FOR CONSULTATION: Difficulty walking and falls. HISTORY OF PRESENT ILLNESS: Eliane Barton is a 79-year-old woman who was brought to [facility] emergency department due to recurrent falls and last 24-48 hours. The patient stated that both sides of her body were feeling weak and she was feeling off balance. She would fall down while sitting in a chair. She felt her legs were not working. She had decreased sensation in both legs. The patient was seen in our office for left leg pain and was found to have moderately severe lumbosacral spinal stenosis earlier this year. The patient appears confused at times and found that her numbness was knees down in both legs. She felt mild back pain. The patient complains of off-and-on back pain which can sometimes be 7/10 in intensity. He has mild neck pain and off-and-on back pain which can sometimes be 7/10 in intensity. She has mild leg pain and off and on headaches. She denies any dysphagia or dysarthria, diplopia, urinary incontinence or loss of consciousness. DIAGNOSTIC STUDIES:MRI scan of brain showed a small left thalamic and internal capsule acute ischemic stroke. MRI lumbosacral spine showed moderately severe lumbosacral spinal stenosis and multilevel lumbosacral disk disease. MRA brain showed atherosclerosis of carotid arteries. PAST MEDICAL HISTORY: Hypertension, hypothyroidism, TIA, dyslipidemia, osteoarthritis, glaucoma, irritable bowel syndrome, acid reflux, diverticulosis, total hysterectomy, basal cell carcinoma affecting the lips, bladder suspension surgery. HOME MEDICATIONS: Aspirin 81 mg by mouth daily, Lipitor 40 mg by mouth daily, gabapentin 100 mg by mouth daily, levothyroxine 50 mcg by mouth, lisinopril / hydrochlorothiazide 10/12.5 mg by mouth daily, omeprazole 20 mg by mouth daily, Paxil 20 mg by mouth daily, terazosin 5 mg by mouth daily ALLERGIES: Penicillin, meperidine. SOCIAL HISTORY: She is a former smoker. She denies alcohol or illicit drugs. FAMILY HISTORY: Noncontributory. REVIEW OF SYSTEMS: All systems reviewed and found to be noncontributory except as mentioned in history of present illness. PHYSICAL EXAMINATION: Blood pressure 120/75, pulse 82, respiratory rate 16, temperature 97.2 94% saturation on room air. Heart: Regular rate and rhythm. Lungs: Clear to auscultation. Abdomen: Soft, nontender, nondistended. No pedal edema. No musculoskeletal abnormalities. No rash. No signs of meningeal irritation. The patient is awake, alert, oriented to place and person. Extraoral muscles are intact. No facial weakness. Tongue and uvula are midline. 5/5 strength in all four extremities. Deep tendon flexes 1+ in arms and knees and absent at ankles. She has decreased cold pinprick vibration sensation in her feet. She has right-sided incoordination when doing finger-nose testing. Her gait is unsteady. Plantars are downgoing. ASSESSMENT: 1. Acute left thalamic and internal capsule ischemic stroke resulting in right-sided clumsy hand and ataxia. 2. Multifactorial gait difficulty. 3. Moderately severe lumbosacral spinal stenosis and lumbosacral radiculopathy. PLAN: 1. Plavix 75 mg by mouth daily. Will continue aspirin 81 mg by mouth daily and Lipitor 40 mg by mouth daily. 2. Physical and occupational therapy. 3. Carotid ultrasound. 4. Echocardiogram. 5. Physical and occupational therapy. 6. Follow with our office in 2-4 weeks after hospital discharge.
[2019-05-29 14:00] VITALS: BP 114/56
--- NOTE | 2019-05-29 15:08 | IPNPDOC ---
Date Seen The patient was seen on 05/29/19. Progress Note SUBJECTIVE: no new c/o this morning. denies any worsening weakness of b/l upper or lower extremities, paresthesias. some difficulty finding words but able to speak appropriately. confused and didn't know where she was when she woke up this morning,but easily oriented by her nurse. OBJECTIVE: PHYSICAL EXAMINATION: VITAL SIGNS: PLS SEE BELOW GENERAL: The patient is awake, alert, oriented to herself, place and time. She answers questions appropriately. Face is symmetric. No facial drooping. Anicteric sclerae. No jaundice. No jugular venous distension. No thyromegaly or cervical lymphadenopathy. Tongue is midline. Currently at 45 degree head elevation in bed, unable to stand. Lungs are clear to auscultation. No wheezes,rales or rhonchi. Air entry is equal bilaterally. Some scoliosis noted. Heart:S1, S2, sinus rhythm. No murmurs, rubs or gallops. Abdomen is soft, nontender,nondistended. (+) BS X 4 quadrants. no rebound Extremities: No cyanosis, clubbing or pitting edema. Neurologically, the patient speaks in full sentences. She is awake, alert and oriented times three, able to state it is May 2019, fall season and that she is at [facility] in [facility]. Mini-mental status exam is 21. She is able to state the date, 05/2019, fall, that she is in [facility] [place] the 3[facility] of the [facility]. She is able to say 3 objects and repeat them, ball, car and man. She was only able to say one serial 7, 93, then 89. Able to spell the word world backwards, dlrow. She was able to recall car and man from previous memory. She is able name and pen and paper. She was not able to say no if, ands or buts, then said no ifs or buts. She was able to follow commands by reading close your eyes and doing a command. She was able to write a short sentence saying, you better take some art lessons. She was able to take the paper in her left hand fold it in half and was able to place it on the bed. She was able to draw the two pentagons with all angles in place, but the overlap was incorrect. Total overall score was 21 out of 30 in the mini-mental status examination. Motor function is 5/5 times bilateral upper extremities. Lower extremities: Gait was not tested. Sensation was intact in the bilateral lower extremities to pinprick and light touch. The patient was 5/5 in bilateral lower extremities. Negative Babinski bilaterally. LABORATORY DATA: pls see below Urinalysis: Straw, clear appearance, pH of 5, protein negative. Glucose, ketones, blood and nitrite negative. Bilirubin is negative. Leukocyte esterase is negative. White count 0, red blood cell 1, hyaline cast 0. Negative urine bacteria. IMAGING STUDY: Magnetic Resonance Imaging (MRI) of the brain 05/27/2019: Focus of abnormal diffusion, weighted in ADC map signal in the left thalamus, barely visible on flare weighted imaging consistent with an acute or subacute left thalamic infarct. Multiple foci of T2 lengthening are demonstrated in the subcortical periventricular centrum, semiovale and pontine white matter consistent with age-related small vessel gliosis, chronic lacunar infarct at the right basal ganglia. magnetic Resonance Angiography (MRA) of the head without contrast: Luminal irregularity in intracranial carotid arteries bilaterally consistent with atherosclerotic changes without evidence of high grade stenosis, otherwise unremarkable. Lumbar spine Magnetic Resonance Imaging (MRI): Decreased marrow space signal in lumbar vertebrae in T1 weighted images consistent with underlying myeloproliferative abnormality or chronic anemia. Multilevel foraminal stenosis mild at L2/L3, moderate at L3/4, severe at L4/5 and moderate L5/S1. ASSESSMENT AND PLAN: This is a 79-year-old female with chronic right basal ganglial infarct, acute and subacute left thalamic infarct presented with recurrent falls at home, found to have lumbosacral spinal stenosis, currently on aspirin with history of transient ischemic attack (TIA) and chronic aspirin 81 mg and Lipitor 40 mg admitted for acute or subacute left thalamic stroke, chronic basal ganglia, lacunar infarct and spinal stenosis in lumbosacral area without signs of cauda equina. Acute/subacute left thalamic stroke. The patient is already on aspirin and Lipitor at home. Echocardiogram : no atrial or ventricular thrombus. No carotid artery disease that is hemodynamically significant. Neurologist , Dr. Olmos, recommended plavix which was started today. on neuro checks to monitor any new neurological deficits. Physical therapy (PT) has been consulted. She is kept on deep vein thrombosis (DVT) prophylaxis as well. 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 on asa, plavix, lipitor, fall precautions, dvt prophylaxis, neurochecks, and physical therapy / acute rehab unit screening. pt lives in her own apartment near family and is alone most of the day. Family concerned about her. Lumbar Spinal stenosis She has no evidence of cauda equina syndrome and did not need decadron which was given on admission. per Dr. Reveles, ortho- pedic surgery and Dr. Pedroza who reviewed the case, spine surgeon in [facility], pain mgt consult, physical therapy (PT), occupational therapy (OT) and acute rehabilitation. Gastroesophageal reflux disease. Complained of heartburn on 05/28/19, which has resolved. on Carafate and proton pump inhibitor (PPI). Chronic hypertension. on lisinopril 10 mg daily and hydrochlorothiazide. Depression on chronic Paxil. Hypothyroidism on Synthroid. Urinary incontinence on Hytrin Disposition: ARU screen. PT/OT consulted. not passed HSE. Await re-evaluation on Friday. VS, I&O, [facility]H, [facility] Vital Signs/I&O Vital Signs Date Time Temp Pulse Resp B/P (MAP) Pulse Ox O2 Delivery O2 Flow Rate FiO2 05/29/19 10:02 144/77 05/29/19 06:00 97.3 67 18 97 05/27/19 19:46 Room Air I&O- Last 24 Hours up to 6 AM 05/29/19 06:00 Intake Total 811 ml Output Total 1400 ml Balance -589 ml Laboratory Data 24H LABS Laboratory Tests 2 05/28/19 17:36: Vitamin B12 Level 310 05/29/19 06:26: Immature Granulocyte % (Auto) 0.5, White Blood Count 5.6, Red Blood Count 3.36L, Hemoglobin 10.2L, Hematocrit 29.9L, Mean Corpuscular Volume 89.0, Mean Corpuscular Hemoglobin 30.4, Mean Corpuscular Hemoglobin Concent 34.1, Red Cell Distribution Width 12.9, Platelet Count 172, Neutrophils (%) (Auto) 76.4H, Lymphocytes (%) (Auto) 16.0L, Monocytes (%) (Auto) 6.9H, Eosinophils (%) (Auto) 0.0, Basophils (%) (Auto) 0.2, Neutrophils # (Auto) 4.3, Lymphocytes # (Auto) 0.9L, Monocytes # (Auto) 0.4, Eosinophils # (Auto) 0.0, Basophils # (Auto) 0.0, Nucleated Red Blood Cells % (auto) 0.0, Erythrocyte Sedimentation Rate 11, Anion Gap 5L, Glomerular Filtration Rate > 60.0, Blood Urea Nitrogen 22H, Creatinine 0.76, Sodium Level 136, Potassium Level 3.8, Chloride Level 104, Carbon Dioxide Level 27, Calcium Level 8.6L, Rheumatoid Factor < 10.0 CBC/BMP Laboratory Tests 05/29/19 06:26 Red Blood Count 3.36 L, Mean Corpuscular Volume 89.0, Mean Corpuscular Hemoglo bin 30.4, Mean Corpuscular Hemoglobin Concent 34.1, Red Cell Distribution Width 12.9, Neutrophils (%) (Auto) 76.4 H, Lymphocytes (%) (Auto) 16.0 L, Monocytes (%) (Auto) 6.9 H, Eosinophils (%) (Auto) 0.0, Basophils (%) (Auto) 0.2, Neutrophils # (Auto) 4.3, Lymphocytes # (Auto) 0.9 L, Monocytes # (Auto) 0.4, Eosinophils # (Auto) 0.0, Basophils # (Auto) 0.0, Calcium Level 8.6 L DEON BLANCHARD MD May 29, 2019 15:08
[2019-05-29] MEDS: TERAZOSIN 5 MG CAP PO SCH (21:34)
[2019-05-29 22:00] VITALS: BP 154/83
[2019-05-30] MEDS: LEVOTHYROXINE 50MCG TABLET (0.05MG) PO SCH (05:26)
[2019-05-30 06:00] VITALS: BP 115/65
[2019-05-30 06:20] LABS: BASO % 0.3 % (0.0-1.0); EOS % 0.5 % (0.0-3.0); HEMATOCRIT 30.2 % (36.0-47.0); LYMPH # 2.2 10^3/uL (1.5-5.0); LYMPH % 38.6 % (24.0-44.0); MEAN CORPUSCULAR HEMOGLOBIN 29.2 pg (27.0-33.0); MEAN CORPUSCULAR HGB CONC 33.1 g/dl (32.0-36.5); MONO # 0.6 10^3/uL (0.0-0.8); MONO % 9.6 % (0.0-5.0); NEUTROPHILS # 2.9 10^3/uL (1.5-8.5); NEUTROPHILS % 50.7 % (36.0-66.0); PLATELET COUNT, AUTOMATED 179 10^3/uL (150-450); RED BLOOD COUNT 3.43 10^6/uL (4.00-5.40); WHITE BLOOD COUNT 5.8 10^3/uL (4.0-10.0)
[2019-05-30 06:50] LABS: BLOOD UREA NITROGEN 19 MG/DL (7-18); CALCIUM LEVEL 8.4 MG/DL (8.8-10.2); CARBON DIOXIDE LEVEL 28 MEQ/L (21-32); CHLORIDE LEVEL 103 MEQ/L (98-107); CREATININE FOR GFR 0.85 MG/DL (0.55-1.30); GLOMERULAR FILTRATION RATE > 60.0 (>39); GLUCOSE, FASTING 94 MG/DL (70-100); POTASSIUM SERUM 3.6 MEQ/L (3.5-5.1); SODIUM LEVEL 139 MEQ/L (136-145)
[2019-05-30] MEDS: SUCRALFATE SUSP 1GM/10ML UD PO SCH ×3 (07:30→16:51)
[2019-05-30] MEDS: ENOXAPARIN 30 MG/0.3 ML SYR (J1650) SC SCH (10:43)
[2019-05-30] MEDS: PARoxetine 20 MG TAB PO SCH (10:43)
[2019-05-30] MEDS: lisinopriL 10 MG TAB PO SCH (10:43)
[2019-05-30] MEDS: GABAPENTIN 100 MG CAP PO SCH (10:44)
[2019-05-30] MEDS: FAMOTIDINE 20 MG TAB PO SCH ×2 (10:44→22:11)
[2019-05-30] MEDS: hydroCHLOROthiazide 12.5 MG CAPSULE PO SCH (10:44)
[2019-05-30] MEDS: ATORVASTATIN 20 MG TAB PO SCH (10:44)
[2019-05-30] MEDS: ASPIRIN 81 MG ENTERIC TAB PO SCH (10:44)
[2019-05-30] MEDS: CLOPIDOGREL 75 MG TAB PO SCH (10:44)
--- NOTE | 2019-05-30 11:45 | REP ---
Clinical: Left thalamic infarction. Technique: Jo scale and color Doppler evaluation using linear high frequency transducer Findings: Two-dimensional jo scale and color images demonstrate mild intimal thickening with normal arterial lumen and laminar flow. Color Doppler interrogation demonstrates normal arterial wave patterns and velocities with no significant spectral broadening. Normal flow direction is appreciated in the bilateral vertebral arteries. RIGHT (cm/s) LEFT (cm/s) ICA peak systolic velocity 55.6 53.0 ICA diastolic velocity 11.3 35.1 ECA peak systolic velocity 77.1 56.0 CCA peak systolic velocity 132.5 72.0 ICA/CCA ratio 0.42 0.74 Impression: No hemodynamically significant areas of narrowing or stenosis appreciated. Based on set standards narrowing falls within the less than 50% range. Electronically Signed by Getachew Fontana MD 05/30/2019 11:37 A
[2019-05-30 12:00] VITALS: BP 75/57
[2019-05-30 12:30] VITALS: BP 112/60
[2019-05-30] MEDS ORDERED: NS 500 ML IV ONE (12:30)
[2019-05-30 16:00] VITALS: BP 80/53
--- NOTE | 2019-05-30 16:10 | IPNPDOC ---
Date Seen The patient was seen on 05/30/19. Progress Note SUBJECTIVE: no new neurologic complaints, but had some dizziness and lightheadedness after receiving her bp meds, and found to have sbp in the 70's, given 1 liter 1vF bolus with improvement to 111. no c/o sob, chest pain pressure or tightness. OBJECTIVE: PHYSICAL EXAMINATION: VITAL SIGNS: PLS SEE BELOW GENERAL: The patient is awake, alert, oriented to herself, place and time. She answers questions appropriately. Face is symmetric. No facial drooping. Anicteric sclerae. No jaundice. No jugular venous distension. No thyromegaly or cervical lymphadenopathy. Tongue is midline. Currently at 45 degree head elevation in bed, unable to stand. Lungs are clear to auscultation. No wheezes,rales or rhonchi. Air entry is equal bilaterally. Some scoliosis noted. Heart:S1, S2, sinus rhythm. No murmurs, rubs or gallops. Abdomen is soft, nontender,nondistended. (+) BS X 4 quadrants. no rebound Extremities: No cyanosis, clubbing or pitting edema. Neurologically, Mini-mental status exam is 21. Motor function is 5/5 times bilateral upper extremities. Lower extremities: Gait was not tested. Sensation was intact in the bilateral lower extremities to pinprick and light touch. The patient was 5/5 in bilateral lower extremities. Negative Babinski bilaterally. LABORATORY DATA: pls see below Urinalysis: Straw, clear appearance, pH of 5, protein negative. Glucose, ketones, blood and nitrite negative. Bilirubin is negative. Leukocyte esterase is negative. White count 0, red blood cell 1, hyaline cast 0. Negative urine bacteria. IMAGING STUDY: Magnetic Resonance Imaging (MRI) of the brain 05/27/2019: Focus of abnormal diffusion, weighted in ADC map signal in the left thalamus, barely visible on flare weighted imaging consistent with an acute or subacute left thalamic infarct. Multiple foci of T2 lengthening are demonstrated in the subcortical periventricular centrum, semiovale and pontine white matter consistent with age-related small vessel gliosis, chronic lacunar infarct at the right basal ganglia. magnetic Resonance Angiography (MRA) of the head without contrast: Luminal irregularity in intracranial carotid arteries bilaterally consistent with atherosclerotic changes without evidence of high grade stenosis, otherwise unremarkable. Lumbar spine Magnetic Resonance Imaging (MRI): Decreased marrow space signal in lumbar vertebrae in T1 weighted images consistent with underlying myeloproliferative abnormality or chronic anemia. Multilevel foraminal stenosis mild at L2/L3, moderate at L3/4, severe at L4/5 and moderate L5/S1. ASSESSMENT AND PLAN: This is a 79-year-old female with chronic right basal ganglial infarct, acute and subacute left thalamic infarct presented with recurrent falls at home, found to have lumbosacral spinal stenosis, currently on aspirin with history of transient ischemic attack (TIA) and chronic aspirin 81 mg and Lipitor 40 mg admitted for acute or subacute left thalamic stroke, chronic basal ganglia, lacunar infarct and spinal stenosis in lumbosacral area without signs of cauda equina. Acute/subacute left thalamic stroke. The patient is already on aspirin and Lipitor at home. Echocardiogram : no atrial or ventricular thrombus. No carotid artery disease that is hemodynamically significant. Neurologist , Dr. Olmos, recommended plavix which was started today. on neuro checks to monitor any new neurological deficits. Physical therapy (PT) has been consulted. She is kept on deep vein thrombosis (DVT) prophylaxis as well. 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 on asa, plavix, lipitor, fall precautions, dvt prophylaxis, neurochecks, and physical therapy / acute rehab unit screening. pt lives in her own apartment near family and is alone most of the day. Family concerned about her. Lumbar Spinal stenosis She has no evidence of cauda equina syndrome and did not need decadron which was given on admission. per Dr. Reveles, ortho- pedic surgery and Dr. Pedroza who reviewed the case, spine surgeon in [facility], pain mgt consult, physical therapy (PT), occupational therapy (OT) and acute rehabilitation. Gastroesophageal reflux disease. Complained of heartburn on 05/28/19, which has resolved. on Carafate and proton pump inhibitor (PPI). Chronic hypertension. due to episode of sbp in the 70's, discontinued lisinopril and hctz. s/p 1liter ns iv bolus with subsequent increase to 111 mmHg systolic and resolution of dizziness. fall precautions. no infectious etiology for hypotension. Depression on chronic Paxil. Hypothyroidism on Synthroid. Urinary incontinence on Hytrin Disposition: ARU screen. PT/OT consulted. not passed HSE. Await re-evaluation on Friday. VS, I&O, 24H, Fishbone Vital Signs/I&O Vital Signs Date Time Temp Pulse Resp B/P (MAP) Pulse Ox O2 Delivery O2 Flow Rate FiO2 05/30/19 12:30 112/60 (77) 05/30/19 06:00 97.7 50 18 96 05/27/19 19:46 Room Air I&O- Last 24 Hours up to 6 AM 05/30/19 06:00 Intake Total 270 ml Output Total 320 ml Balance -50 ml Laboratory Data 24H LABS Laboratory Tests 2 05/30/19 05:18: Immature Granulocyte % (Auto) 0.3, White Blood Count 5.8, Red Blood Count 3.43L, Hemoglobin 10.0L, Hematocrit 30.2L, Mean Corpuscular Volume 88.0, Mean Corpuscular Hemoglobin 29.2, Mean Corpuscular Hemoglobin Concent 33.1, Red Cell Distribution Width 13.1, Platelet Count 179, Neutrophils (%) (Auto) 50.7, Lymphocytes (%) (Auto) 38.6, Monocytes (%) (Auto) 9.6H, Eosinophils (%) (Auto) 0.5, Basophils (%) (Auto) 0.3, Neutrophils # (Auto) 2.9, Lymphocytes # (Auto) 2.2, Monocytes # (Auto) 0.6, Eosinophils # (Auto) 0.0, Basophils # (Auto) 0.0, Nucleated Red Blood Cells % (auto) 0.0, Anion Gap 8, Glomerular Filtration Rate > 60.0, Blood Urea Nitrogen 19H, Creatinine 0.85, Sodium Level 139, Potassium Level 3.6, Chloride Level 103, Carbon Dioxide Level 28, Calcium Level 8.4L CBC/BMP Laboratory Tests 05/30/19 05:18 Red Blood Count 3.43 L, Mean Corpuscular Volume 88.0, Mean Corpuscular Hemoglobin 29.2, Mean Corpuscular Hemoglobin Concent 33.1, Red Cell Distribution Width 13.1, Neutrophils (%) (Auto) 50.7, Lymphocytes (%) (Auto) 38.6, Monocytes (%) (Auto) 9.6 H, Eosinophils (%) (Auto) 0.5, Basophils (%) (Auto) 0.3, Neutrophils # (Auto) 2.9, Lymphocytes # (Auto) 2.2, Monocytes # (Auto) 0.6, Eosinophils # (Auto) 0.0, Basophils # (Auto) 0.0, Calcium Level 8.4 L DEON BLANCHARD MD May 30, 2019 16:09
[2019-05-30 16:52] VITALS: BP 119/55
[2019-05-30] MEDS ORDERED: NS 1,000 ML IV SCH (20:00)
[2019-05-30 22:00] VITALS: BP 114/61
[2019-05-30] MEDS: TERAZOSIN 5 MG CAP PO SCH (22:11)
[2019-05-31 06:00] VITALS: BP 117/59
[2019-05-31] MEDS: LEVOTHYROXINE 50MCG TABLET (0.05MG) PO SCH (06:01)
[2019-05-31 06:21] LABS: BASO # 0.1 10^3/uL (0.0-0.2); EOS # 0.1 10^3/uL (0.0-0.5); EOS % 1.6 % (0.0-3.0); HEMATOCRIT 31.2 % (36.0-47.0); HEMOGLOBIN 10.4 g/dl (12.0-15.5); LYMPH # 2.2 10^3/uL (1.5-5.0); LYMPH % 43.9 % (24.0-44.0); MEAN CORPUSCULAR HEMOGLOBIN 29.4 pg (27.0-33.0); MEAN CORPUSCULAR HGB CONC 33.3 g/dl (32.0-36.5); MEAN CORPUSCULAR VOLUME 88.1 fl (80.0-96.0); MONO # 0.5 10^3/uL (0.0-0.8); MONO % 9.8 % (0.0-5.0); NEUTROPHILS # 2.2 10^3/uL (1.5-8.5); NEUTROPHILS % 43.7 % (36.0-66.0); PLATELET COUNT, AUTOMATED 172 10^3/uL (150-450); RED BLOOD COUNT 3.54 10^6/uL (4.00-5.40); WHITE BLOOD COUNT 4.9 10^3/uL (4.0-10.0)
[2019-05-31 06:48] LABS: BLOOD UREA NITROGEN 13 MG/DL (7-18); CALCIUM LEVEL 8.4 MG/DL (8.8-10.2); CARBON DIOXIDE LEVEL 27 MEQ/L (21-32); CHLORIDE LEVEL 106 MEQ/L (98-107); CREATININE FOR GFR 0.84 MG/DL (0.55-1.30); GLOMERULAR FILTRATION RATE > 60.0 (>39); GLUCOSE, FASTING 90 MG/DL (70-100); POTASSIUM SERUM 3.8 MEQ/L (3.5-5.1); SODIUM LEVEL 138 MEQ/L (136-145)
[2019-05-31] MEDS: ASPIRIN 81 MG ENTERIC TAB PO SCH (09:17)
[2019-05-31] MEDS: ATORVASTATIN 20 MG TAB PO SCH (09:18)
[2019-05-31] MEDS: PARoxetine 20 MG TAB PO SCH (09:18)
[2019-05-31] MEDS: GABAPENTIN 100 MG CAP PO SCH (09:18)
[2019-05-31] MEDS: CLOPIDOGREL 75 MG TAB PO SCH (09:18)
[2019-05-31] MEDS: FAMOTIDINE 20 MG TAB PO SCH ×2 (09:18→21:48)
[2019-05-31] MEDS: SUCRALFATE SUSP 1GM/10ML UD PO SCH ×3 (09:18→18:11)
[2019-05-31] MEDS: ENOXAPARIN 30 MG/0.3 ML SYR (J1650) SC SCH (09:19)
[2019-05-31 14:30] LABS: ANTINUCLEAR ANTIBODIES DIRECT Negative (Negative)
--- NOTE | 2019-05-31 16:12 | DS.PDOC ---
Discharge Summary General Date of Admission May 28, 2019 at 10:35 Date of Discharge 05/31/19 Discharge Summary TRANSFERRED TO REHAB DISCHARGE DIAGNOSES: Acute/subacute left thalamic stroke. chronic right basal ganglial infarct Lumbar Spinal stenosis gastroesophageal reflux disease. hypotension due to adverse effect of bp meds at correct dose and frequency Depression Hypothyroidism Urinary incontinence DISCHARGE MEDICATIONS: PLS SEE BELOW ORTHOPEDIC SURGEON: DR SIMS NEUROLOGIST: DR OLMSO HISTORY OF PRESENTING ILLNESS: This is a 79-year-old female with chronic right basal ganglial infarct, acute and subacute left thalamic infarct presented with recurrent falls at home, found to have lumbosacral spinal stenosis, currently on aspirin with history of transient ischemic attack (TIA) and chronic aspirin 81 mg and Lipitor 40 mg admitted for acute or subacute left thalamic stroke, chronic basal ganglia, lacunar infarct and spinal stenosis in lumbosacral area without signs of cauda equina. HOSPITAL COURSE: Acute/subacute left thalamic stroke. The patient is already on aspirin and Lipitor at home. Echocardiogram : no atrial or ventricular thrombus. No carotid artery disease that is hemodynamically significant. Neurologist , Dr. Olmos, recommended plavix which was started today. on neuro checks to monitor any new neurological deficits. Physical therapy (PT) has been consulted . She is kept on deep vein thrombosis (DVT) prophylaxis as well. 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 on asa, plavix, lipitor, fall precautions, dvt prophylaxis, neurochecks, and physical therapy / acute rehab unit screening. pt lives in her own apartment near family and is alone most of the day. Family concerned about her. Lumbar Spinal stenosis She has no evidence of cauda equina syndrome and did not need decadron which was given on admission. per Dr. Sims, ortho- pedic surgery and Dr. Pedroza who reviewed the case, spine surgeon in [facility], pain mgt consult, physical therapy (PT), occupational therapy (OT) and acute rehabilitation. Gastroesophageal reflux disease. Complained of heartburn on 05/28/19, which has resolved. on Carafate and proton pump inhibitor (PPI). Chronic hypertension. due to episode of sbp in the 70's, discontinued lisinopril and hctz. s/p 1liter ns iv bolus with subsequent increase to 111 mmHg systolic and resolution of dizziness. fall precautions. no infectious etiology for hypotension. Depression on chronic Paxil. Hypothyroidism on Synthroid. Urinary incontinence on Hytrin PHYSICAL EXAMINATION ON HOSPITAL DISCHARGE VITAL SIGNS: PLS SEE BELOW GENERAL: The patient is awake, alert, oriented to herself, place and time. She answers questions appropriately. Face is symmetric. No facial drooping. Anicteric sclerae. No jaundice. No jugular venous distension. No thyromegaly or cervical lymphadenopathy. Tongue is midline. Currently at 45 degree head elevation in bed, unable to stand. Lungs are clear to auscultation. No wheezes,rales or rhonchi. Air entry is equal bilaterally. Some scoliosis noted. Heart:S1, S2, sinus rhythm. No murmurs, rubs or gallops. Abdomen is soft, nontender,nondistended. (+) BS X 4 quadrants. no rebound Extremities: No cyanosis, clubbing or pitting edema. Neurologically, Mini-mental status exam is 21. Motor function is 5/5 times bilateral upper extremities. Lower extremities: Gait was not tested. Sensation was intact in the bilateral lower extremities to pinprick and light touch. The patient was 5/5 in bilateral lower extremities. Negative Babinski bilaterally. LABORATORY DATA: pls see below Urinalysis: Straw, clear appearance, pH of 5, protein negative. Glucose, ketones, blood and nitrite negative. Bilirubin is negative. Leukocyte esterase is negative. White count 0, red blood cell 1, hyaline cast 0. Negative urine bacteria. IMAGING STUDY: Magnetic Resonance Imaging (MRI) of the brain 05/27/2019: Focus of abnormal diffusion, weighted in ADC map signal in the left thalamus, barely visible on flare weighted imaging consistent with an acute or subacute left thalamic infarct. Multiple foci of T2 lengthening are demonstrated in the subcortical periventricular centrum, semiovale and pontine white matter consistent with age-related small vessel gliosis, chronic lacunar infarct at the right basal ganglia. magnetic Resonance Angiography (MRA) of the head without contrast: Luminal irregularity in intracranial carotid arteries bilaterally consistent with atherosclerotic changes without evidence of high grade stenosis, otherwise unremarkable. Lumbar spine Magnetic Resonance Imaging (MRI): Decreased marrow space signal in lumbar vertebrae in T1 weighted images consistent with underlying myeloproliferative abnormality or chronic anemia. Multilevel foraminal stenosis mild at L2/L3, moderate at L3/4, severe at L4/5 and moderate L5/S1. TIME SPENT ON DISCHARGE: 32 MIN Vital Signs/I&Os Vital Signs Date Time Temp Pulse Resp B/P (MAP) Pulse Ox O2 Delivery O2 Flow Rate FiO2 05/31/19 06:00 97.9 66 17 117/59 (78) 98 05/27/19 19:46 Room Air I&O- Last 24 Hours up to 6 AM 05/31/19 06:00 Intake Total 1245 ml Output Total 950 ml Balance 295 ml Laboratory Data Labs 24H Laboratory Tests 2 05/31/19 06:10: Immature Granulocyte % (Auto) 0.0, White Blood Count 4.9, Red Blood Count 3.54L, Hemoglobin 10.4L, Hematocrit 31.2L, Mean Corpuscular Volume 88.1, Mean Corpusc ular Hemoglobin 29.4, Mean Corpuscular Hemoglobin Concent 33.3, Red Cell Distribution Width 13.0, Platelet Count 172, Neutrophils (%) (Auto) 43.7, Lymphocytes (%) (Auto) 43.9, Monocytes (%) (Auto) 9.8H, Eosinophils (%) (Auto) 1.6, Basophils (%) (Auto) 1.0, Neutrophils # (Auto) 2.2, Lymphocytes # (Auto) 2.2, Monocytes # (Auto) 0.5, Eosinophils # (Auto) 0.1, Basophils # (Auto) 0.1, Nucleated Red Blood Cells % (auto) 0.0, Anion Gap 5L, Glomerular Filtration Rate > 60.0, Blood Urea Nitrogen 13, Creatinine 0.84, Sodium Level 138, Potassium Level 3.8, Chloride Level 106, Carbon Dioxide Level 27, Calcium Level 8.4L CBC/BMP Laboratory Tests 05/31/19 06:10 Red Blood Count 3.54 L, Mean Corpuscular Volume 88.1, Mean Corpuscular Hemoglobin 29.4, Mean Corpuscular Hemoglobin Concent 33.3, Red Cell Distribution Width 13.0, Neutrophils (%) (Auto) 43.7, Lymphocytes (%) (Auto) 43.9, Monocytes (%) (Auto) 9.8 H, Eosinophils (%) (Auto) 1.6, Basophils (%) (Auto) 1.0, Neutrophils # (Auto) 2.2, Lymphocytes # (Auto) 2.2, Monocytes # (Auto) 0.5, Eosinophils # (Auto) 0.1, Basophils # (Auto) 0.1, Calcium Level 8.4 L Discharge Medications Scheduled Aspirin (Aspirin EC) 81 Mg Tab, 81 MG PO DAILY, (Reported) Atorvastatin Calcium (Atorvastatin Calcium) 40 Mg Tab, 40 MG PO DAILY, (Reported) Bimatoprost (Lumigan) 0.01% 2.5ML Drops, 1 DROP OU QHS, (Reported) Gabapentin (Neurontin) 100 Mg Capsule, 100 MG PO DAILY, (Reported) Levothyroxine Sodium (Synthroid) 50 Mcg Tab, 50 MCG PO DAILY, (Reported) Lisinopril/Hydrochlorothiazide (Lisinopril-Hctz 10-12.5 mg Tab) 1 Each Tablet, 1 TAB PO DAILY, (Reported) Omeprazole (Omeprazole) 20 Mg Capsule.dr, 20 MG PO DAILY, (Reported) Paroxetine HCl (Paroxetine HCl) 20 Mg Tablet, 20 MG PO DAILY, (Reported) Terazosin HCl (Terazosin HCl) 5 Mg Capsule, 5 MG PO QHS, (Reported) Allergies Coded Allergies: Penicillins (Verified Allergy, Severe, THROAT CLOSES, 05/27/19) THROAT CLOSES meperidine (Verified Allergy, Severe, ANAPHYLAXIS, 05/27/19) DEON BLANCHARD MD May 31, 2019 16:12
[2019-05-31] MEDS: TERAZOSIN 5 MG CAP PO SCH (21:48)
[2019-05-31 22:00] VITALS: BP 149/83
[2019-06-01 05:33] VITALS: BP 139/75
[2019-06-01] MEDS: LEVOTHYROXINE 50MCG TABLET (0.05MG) PO SCH (05:48)
[2019-06-01 06:08] LABS: BASO % 0.5 % (0.0-1.0); EOS # 0.2 10^3/uL (0.0-0.5); EOS % 3.6 % (0.0-3.0); HEMATOCRIT 31.3 % (36.0-47.0); HEMOGLOBIN 10.4 g/dl (12.0-15.5); LYMPH # 1.9 10^3/uL (1.5-5.0); LYMPH % 45.3 % (24.0-44.0); MEAN CORPUSCULAR HEMOGLOBIN 29.1 pg (27.0-33.0); MEAN CORPUSCULAR HGB CONC 33.2 g/dl (32.0-36.5); MEAN CORPUSCULAR VOLUME 87.4 fl (80.0-96.0); MONO # 0.4 10^3/uL (0.0-0.8); MONO % 10.6 % (0.0-5.0); NEUTROPHILS # 1.7 10^3/uL (1.5-8.5); NEUTROPHILS % 39.8 % (36.0-66.0); PLATELET COUNT, AUTOMATED 178 10^3/uL (150-450); RED BLOOD COUNT 3.58 10^6/uL (4.00-5.40); WHITE BLOOD COUNT 4.2 10^3/uL (4.0-10.0)
[2019-06-01 06:31] LABS: BLOOD UREA NITROGEN 12 MG/DL (7-18); CALCIUM LEVEL 8.3 MG/DL (8.8-10.2); CARBON DIOXIDE LEVEL 27 MEQ/L (21-32); CHLORIDE LEVEL 104 MEQ/L (98-107); CREATININE FOR GFR 0.79 MG/DL (0.55-1.30); GLOMERULAR FILTRATION RATE > 60.0 (>39); GLUCOSE, FASTING 87 MG/DL (70-100); POTASSIUM SERUM 3.7 MEQ/L (3.5-5.1); SODIUM LEVEL 139 MEQ/L (136-145)
[2019-06-01] MEDS: SUCRALFATE SUSP 1GM/10ML UD PO SCH ×3 (08:33→17:26)
[2019-06-01] MEDS: ATORVASTATIN 20 MG TAB PO SCH (08:33)
[2019-06-01] MEDS: CLOPIDOGREL 75 MG TAB PO SCH (08:33)
[2019-06-01] MEDS: ASPIRIN 81 MG ENTERIC TAB PO SCH (08:33)
[2019-06-01] MEDS: FAMOTIDINE 20 MG TAB PO SCH ×2 (08:34→21:45)
[2019-06-01] MEDS: GABAPENTIN 100 MG CAP PO SCH (08:34)
[2019-06-01] MEDS: ENOXAPARIN 30 MG/0.3 ML SYR (J1650) SC SCH (08:34)
[2019-06-01] MEDS: PARoxetine 20 MG TAB PO SCH (08:34)
[2019-06-01 14:00] VITALS: BP 143/70
[2019-06-01 14:07] LABS: ANTINUCLEAR ANTIBODIES DIRECT Negative (Negative); Methylmalonic Acid 842 nmol/L (0-378)
--- NOTE | 2019-06-01 14:20 | IPNPDOC ---
Text Note Date of Service The patient was seen on 06/01/19. NOTE SUBJECTIVE: Feels well this am. Said was able to sleep better last night. No further dizziness or light headedness. No fever or chills, no chest pain or cough , no sob. PHYSICAL EXAMINATION: VITAL SIGNS: PLS SEE BELOW GENERAL: The patient is awake, alert, oriented to herself, place and time. Face is symmetric. No facial drooping. HEENT: Anicteric sclerae. Tongue is midline. Currently at 45 degree head elevation in bed, unable to stand. NECK: No jugular venous distension. No thyromegaly or cervical lymphadenopathy. Lungs are clear to auscultation. No wheezes,rales or rhonchi. Air entry is equal bilaterally. Some scoliosis noted. Heart: S1, S2, sinus rhythm. No murmurs, rubs or gallops. Abdomen is soft, nontender,nondistended. (+) BS X 4 quadrants. no rebound Extremities: No cyanosis, clubbing or pitting edema. Neurologically, Mini-mental status exam is 21. Motor function is 5/5 times bilateral upper extremities. Lower extremities: Gait was not tested. Sensation was intact in the bilateral lower extremities to pinprick and light touch. The patient was 5/5 in bilateral lower extremities. Negative Babinski bilaterally. IMAGING STUDY: Magnetic Resonance Imaging (MRI) of the brain 05/27/2019: Focus of abnormal diffusion, weighted in ADC map signal in the left thalamus, barely visible on flare weighted imaging consistent with an acute or subacute left thalamic infarct. Multiple foci of T2 lengthening are demonstrated in the subcortical periventricular centrum, semiovale and pontine white matter consistent with age-related small vessel gliosis, chronic lacunar infarct at the right basal ganglia. magnetic Resonance Angiography (MRA) of the head without contrast: Luminal irregularity in intracranial carotid arteries bilaterally consistent with atherosclerotic changes without evidence of high grade stenosis, otherwise unremarkable. Lumbar spine Magnetic Resonance Imaging (MRI): Decreased marrow space signal in lumbar vertebrae in T1 weighted images consistent with underlying myeloproliferative abnormality or chronic anemia. Multilevel foraminal stenosis mild at L2/L3, moderate at L3/4, severe at L4/5 an d moderate L5/S1. ASSESSMENT AND PLAN: This is a 79-year-old female with chronic right basal gang lial infarct, TIA, GERD, Hypertension, Hypothyroid, Hyperlipidemia, urinary incontinence presented with recurrent falls at home, found to have lumbosacral spinal stenosis admitted for acute or subacute left thalamic stroke and spinal stenosis in lumbosacral area without signs of cauda equina. Acute/subacute left thalamic stroke. Echocardiogram : no atrial or ventricular thrombus. No carotid artery disease that is hemodynamically significant. ASA, Plavix and lipitor, Gabapentin Physical therapy (PT) /OT Chronic right basal ganglial infarct with gait ataxia. on asa, plavix, lipitor, fall precautions physical therapy / acute rehab unit screening. pt lives in her own apartment near family and is alone most of the day. Lumbar Spinal stenosis She has no evidence of cauda equina syndrome per Dr. Reveles, ortho-pedic surgery and Dr. Pedroza who reviewed the case, spine surgeon in [facility], pain mgt consult, physical therapy (PT), occupational therapy (OT) and acute rehabilitation. Gastroesophageal reflux disease. on Carafate and Famotidine Chronic hypertension. due to episode of sbp in the 70's discontinued lisinopril and hctz. Now not on any meds. Depression on chronic Paxil. Hypothyroidism on Synthroid. Urinary incontinence on Hytrin Disposition: ARU screen. PT/OT consulted. VS,Fishbone, I+O VS, Fishbone, I+O Laboratory Tests 06/01/19 05:55 Red Blood Count 3.58 L, Mean Corpuscular Volume 87.4, Mean Corpuscular Hemoglobin 29.1, Mean Corpuscular Hemoglobin Concent 33.2, Red Cell Distribution Width 12.6, Neutrophils (%) (Auto) 39.8, Lymphocytes (%) (Auto) 45.3 H, Monocytes (%) (Auto) 10.6 H, Eosinophils (%) (Auto) 3.6 H, Basophils (%) (Auto) 0.5, Neutrophils # (Auto) 1.7, Lymphocytes # (Auto) 1.9, Monocytes # (Auto) 0.4, Eosinophils # (Auto) 0.2, Basophils # (Auto) 0.0, Calcium Level 8.3 L Vital Signs Date Time Temp Pulse Resp B/P (MAP) Pulse Ox O2 Delivery O2 Flow Rate FiO2 06/01/19 05:33 97.1 58 18 139/75 (96) 97 05/27/19 19:46 Room Air I&O- Last 24 Hours up to 6 AM 06/01/19 06:00 Intake Total 1580 ml Output Total 600 ml Balance 980 ml AIMEE VALLE MD Jun 01, 2019 12:25
[2019-06-01 20:00] VITALS: BP 162/85
[2019-06-01] MEDS: TERAZOSIN 5 MG CAP PO SCH (21:45)
[2019-06-02 06:00] VITALS: BP 112/69
[2019-06-02] MEDS: LEVOTHYROXINE 50MCG TABLET (0.05MG) PO SCH (06:14)
[2019-06-02 06:31] LABS: BASO % 0.8 % (0.0-1.0); EOS # 0.1 10^3/uL (0.0-0.5); EOS % 3.1 % (0.0-3.0); HEMATOCRIT 29.5 % (36.0-47.0); LYMPH # 1.5 10^3/uL (1.5-5.0); LYMPH % 38.6 % (24.0-44.0); MEAN CORPUSCULAR HEMOGLOBIN 29.9 pg (27.0-33.0); MEAN CORPUSCULAR HGB CONC 33.9 g/dl (32.0-36.5); MEAN CORPUSCULAR VOLUME 88.3 fl (80.0-96.0); MONO # 0.4 10^3/uL (0.0-0.8); MONO % 10.7 % (0.0-5.0); NEUTROPHILS # 1.8 10^3/uL (1.5-8.5); NEUTROPHILS % 46.8 % (36.0-66.0); PLATELET COUNT, AUTOMATED 173 10^3/uL (150-450); RED BLOOD COUNT 3.34 10^6/uL (4.00-5.40); WHITE BLOOD COUNT 3.8 10^3/uL (4.0-10.0)
[2019-06-02 06:50] LABS: BLOOD UREA NITROGEN 14 MG/DL (7-18); CALCIUM LEVEL 8.5 MG/DL (8.8-10.2); CARBON DIOXIDE LEVEL 27 MEQ/L (21-32); CHLORIDE LEVEL 101 MEQ/L (98-107); CREATININE FOR GFR 0.83 MG/DL (0.55-1.30); GLOMERULAR FILTRATION RATE > 60.0 (>39); GLUCOSE, FASTING 86 MG/DL (70-100); POTASSIUM SERUM 3.6 MEQ/L (3.5-5.1); SODIUM LEVEL 135 MEQ/L (136-145)
[2019-06-02] MEDS: ENOXAPARIN 30 MG/0.3 ML SYR (J1650) SC SCH (08:03)
[2019-06-02] MEDS: SUCRALFATE SUSP 1GM/10ML UD PO SCH ×3 (08:03→18:10)
[2019-06-02] MEDS: ATORVASTATIN 20 MG TAB PO SCH (08:04)
[2019-06-02] MEDS: PARoxetine 20 MG TAB PO SCH (08:04)
[2019-06-02] MEDS: ASPIRIN 81 MG ENTERIC TAB PO SCH (08:04)
[2019-06-02] MEDS: GABAPENTIN 100 MG CAP PO SCH (08:04)
[2019-06-02] MEDS: CLOPIDOGREL 75 MG TAB PO SCH (08:04)
[2019-06-02] MEDS: FAMOTIDINE 20 MG TAB PO SCH ×2 (08:04→22:16)
[2019-06-02] MEDS ORDERED: LISINOPRIL *2.5 MG* TAB PO SCH (09:00)
--- NOTE | 2019-06-02 09:40 | IPNPDOC ---
Text Note Date of Service The patient was seen on 06/02/19. NOTE SUBJECTIVE: Feels well this am. No further dizziness or light headedness. No fever or chills, no chest pain or cough , no sob. Her Blood pressure has been running high yesterday. PHYSICAL EXAMINATION: VITAL SIGNS: PLS SEE BELOW GENERAL: The patient is awake, alert, oriented to herself, place and time. Face is symmetric. No facial drooping. HEENT: Anicteric sclerae. Tongue is midline. Currently at 45 degree head elevation in bed, unable to stand. NECK: No jugular venous distension. No thyromegaly or cervical lymphadenopathy. Lungs are clear to auscultation. No wheezes,rales or rhonchi. Air entry is equal bilaterally. Some scoliosis noted. Heart: S1, S2, sinus rhythm. No murmurs, rubs or gallops. Abdomen is soft, nontender,nondistended. (+) BS X 4 quadrants. no rebound Extremities: No cyanosis, clubbing or pitting edema. Neurologically, Mini-mental status exam is 21. Motor function is 5/5 times bilateral upper extremities. Lower extremities: Gait was not tested. Sensation was intact in the bilateral lower extremities to pinprick and light touch. The patient was 5/5 in bilateral lower extremities. Negative Babinski bilaterally. IMAGING STUDY: Magnetic Resonance Imaging (MRI) of the brain 05/27/2019: Focus of abnormal diffusion, weighted in ADC map signal in the left thalamus, barely visible on flare weighted imaging consistent with an acute or subacute left thalamic infarct. Multiple foci of T2 lengthening are demonstrated in the subcortical periventricular centrum, semiovale and pontine white matter consistent with age-related small vessel gliosis, chronic lacunar infarct at the right basal ganglia. magnetic Resonance Angiography (MRA) of the head without contrast: Luminal irregularity in intracranial carotid arteries bilaterally consistent with atherosclerotic changes without evidence of high grade stenosis, otherwise unremarkable. Lumbar spine Magnetic Resonance Imaging (MRI): Decreased marrow space signal in lumbar vertebrae in T1 weighted images consistent with underlying myeloproliferative abnormality or chronic anemia. Multilevel foraminal stenosis mild at L2/L3, moderate at L3/4, severe at L4/5 and moderate L5/S1. ASSESSMENT AND PLAN: This is a 79-year-old female with chronic right basal ganglial infarct, TIA, GERD, Hypertension, Hypothyroid, Hyperlipidemia, urinary incontinence presented with recurrent falls at home, found to have lumbosacral spinal stenosis admitted for acute or subacute left thalamic stroke and spinal stenosis in lumbosacral area without signs of cauda equina. Acute/subacute left thalamic stroke. Echocardiogram : no atrial or ventricular thrombus. No carotid artery disease that is hemodynamically significant. ASA, Plavix and lipitor, Gabapentin Physical therapy (PT) /OT Chronic right basal ganglial infarct with gait ataxia. on asa, plavix, lipitor, fall precautions physical therapy / acute rehab unit screening. pt lives in her own apartment near family and is alone most of the day. Hypertension. due to episode of sbp in the 70's discontinued lisinopril and hctz. Now Bp slightly on the rise will restart very low dose lisinopril only. Lumbar Spinal stenosis She has no evidence of cauda equina syndrome per Dr. Reveles, ortho-pedic surgery and Dr. Pedroza who reviewed the case, spine surgeon in [facility], physical therapy (PT), occupational therapy (OT) and acute Vs subacute rehabilitation. Gastroesophageal reflux disease. on Carafate and Famotidine Depression on chronic Paxil. Hypothyroidism on Synthroid. Urinary incontinence on Hytrin Disposition: Acute vs subacute rehab as per PT/OT. ARU screen. VS,Fishbone, I+O VS, Fishbone, I+O Laboratory Tests 06/02/19 05:49 Red Blood Count 3.34 L, Mean Corpuscular Volume 88.3, Mean Corpuscular Hemoglobin 29.9, Mean Corpuscular Hemoglobin Concent 33.9, Red Cell Distribution Width 12.5, Neutrophils (%) (Auto) 46.8, Lymphocytes (%) (Auto) 38.6, Monocytes (%) (Auto) 10.7 H, Eosinophils (%) (Auto) 3.1 H, Basophils (%) (Auto) 0.8, Neutrophils # (Auto) 1.8, Lymphocytes # (Auto) 1.5, Monocytes # (Auto) 0.4, Eosinophils # (Auto) 0.1, Basophils # (Auto) 0.0 Vital Signs Date Time Temp Pulse Resp B/P (MAP) Pulse Ox O2 Delivery O2 Flow Rate FiO2 06/02/19 06:00 97.0 62 18 112/69 (83) 97 05/27/19 19:46 Room Air I&O- Last 24 Hours up to 6 AM 06/02/19 05:59 Intake Total 1555 ml Output Total 900 ml Balance 655 ml AIMEE VALLE MD Jun 02, 2019 06:45
[2019-06-02 14:00] VITALS: BP 97/60
[2019-06-02 22:00] VITALS: BP 103/56
[2019-06-02 22:16] VITALS: BP 132/66
[2019-06-02] MEDS: TERAZOSIN 5 MG CAP PO SCH (22:16)
[2019-06-03 06:00] VITALS: BP 112/64
[2019-06-03] MEDS: LEVOTHYROXINE 50MCG TABLET (0.05MG) PO SCH (06:06)
[2019-06-03 06:39] LABS: BASO % 1.1 % (0.0-1.0); EOS # 0.1 10^3/uL (0.0-0.5); EOS % 3.5 % (0.0-3.0); HEMATOCRIT 29.7 % (36.0-47.0); HEMOGLOBIN 10.1 g/dl (12.0-15.5); LYMPH # 1.5 10^3/uL (1.5-5.0); LYMPH % 40.8 % (24.0-44.0); MEAN CORPUSCULAR HEMOGLOBIN 30.3 pg (27.0-33.0); MEAN CORPUSCULAR VOLUME 89.2 fl (80.0-96.0); MONO # 0.4 10^3/uL (0.0-0.8); MONO % 10.2 % (0.0-5.0); NEUTROPHILS # 1.7 10^3/uL (1.5-8.5); NEUTROPHILS % 44.1 % (36.0-66.0); PLATELET COUNT, AUTOMATED 171 10^3/uL (150-450); RED BLOOD COUNT 3.33 10^6/uL (4.00-5.40); WHITE BLOOD COUNT 3.7 10^3/uL (4.0-10.0)
[2019-06-03 07:03] LABS: BLOOD UREA NITROGEN 14 MG/DL (7-18); CALCIUM LEVEL 8.2 MG/DL (8.8-10.2); CARBON DIOXIDE LEVEL 28 MEQ/L (21-32); CHLORIDE LEVEL 103 MEQ/L (98-107); CREATININE FOR GFR 0.84 MG/DL (0.55-1.30); GLOMERULAR FILTRATION RATE > 60.0 (>39); GLUCOSE, FASTING 83 MG/DL (70-100); POTASSIUM SERUM 3.7 MEQ/L (3.5-5.1); SODIUM LEVEL 136 MEQ/L (136-145)
[2019-06-03] MEDS: FAMOTIDINE 20 MG TAB PO SCH (09:21)
[2019-06-03] MEDS: ATORVASTATIN 20 MG TAB PO SCH (09:21)
[2019-06-03] MEDS: CLOPIDOGREL 75 MG TAB PO SCH (09:21)
[2019-06-03] MEDS: GABAPENTIN 100 MG CAP PO SCH (09:21)
[2019-06-03] MEDS: SUCRALFATE SUSP 1GM/10ML UD PO SCH ×2 (09:21→12:02)
[2019-06-03] MEDS: PARoxetine 20 MG TAB PO SCH (09:22)
[2019-06-03] MEDS: ASPIRIN 81 MG ENTERIC TAB PO SCH (09:22)
[2019-06-03] MEDS: ENOXAPARIN 30 MG/0.3 ML SYR (J1650) SC SCH (09:22)
[2019-06-03 14:00] VITALS: BP 111/59
--- NOTE | 2019-06-03 14:49 | IPNPDOC ---
Text Note Date of Service The patient was seen on 06/03/19. NOTE SUBJECTIVE: Feels well this am. No further dizziness or light headedness. No fever or chills, no chest pain or cough , no sob. Her Blood pressure has been running high yesterday. PHYSICAL EXAMINATION: VITAL SIGNS: PLS SEE BELOW GENERAL: The patient is awake, alert, oriented to herself, place and time. Face is symmetric. No facial drooping. HEENT: Anicteric sclerae. Tongue is midline. Currently at 45 degree head elevation in bed, unable to stand. NECK: No jugular venous distension. No thyromegaly or cervical lymphadenopathy. Lungs are clear to auscultation. No wheezes,rales or rhonchi. Air entry is equal bilaterally. Some scoliosis noted. Heart: S1, S2, sinus rhythm. No murmurs, rubs or gallops. Abdomen is soft, nontender,nondistended. (+) BS X 4 quadrants. no rebound Extremities: No cyanosis, clubbing or pitting edema. Neurologically, Mini-mental status exam is 21. Motor function is 5/5 times bilateral upper extremities. Lower extremities: Gait was not tested. Sensation was intact in the bilateral lower extremities to pinprick and light touch. The patient was 5/5 in bilateral lower extremities. Negative Babinski bilaterally. IMAGING STUDY: Magnetic Resonance Imaging (MRI) of the brain 05/27/2019: Focus of abnormal diffusion, weighted in ADC map signal in the left thalamus, barely visible on flare weighted imaging consistent with an acute or subacute left thalamic infarct. Multiple foci of T2 lengthening are demonstrated in the subcortical periventricular centrum, semiovale and pontine white matter consistent with age-related small vessel gliosis, chronic lacunar infarct at the right basal ganglia. magnetic Resonance Angiography (MRA) of the head without contrast: Luminal irregularity in intracranial carotid arteries bilaterally consistent with atherosclerotic changes without evidence of high grade stenosis, otherwise unremarkable. Lumbar spine Magnetic Resonance Imaging (MRI): Decreased marrow space signal in lumbar vertebrae in T1 weighted images consistent with underlying myeloproliferative abnormality or chronic anemia. Multilevel foraminal stenosis mild at L2/L3, moderate at L3/4, severe at L4/5 and moderate L5/S1. ASSESSMENT AND PLAN: This is a 79-year-old female with chronic right basal ganglial infarct, TIA, GERD, Hypertension, Hypothyroid, Hyperlipidemia, urinary incontinence presented with recurrent falls at home, found to have lumbosacral spinal stenosis admitted for acute or subacute left thalamic stroke and spinal stenosis in lumbosacral area without signs of cauda equina. Acute/subacute left thalamic stroke. Echocardiogram : no atrial or ventricular thrombus. No carotid artery disease that is hemodynamically significant. ASA, Plavix and lipitor, Gabapentin Physical therapy (PT) /OT Chronic right basal ganglial infarct with gait ataxia. on asa, plavix, lipitor, fall precautions physical therapy / acute rehab unit screening. pt lives in her own apartment near family and is alone most of the day. Hypertension. due to episode of sbp in the 70's discontinued lisinopril and hctz. Now Bp slightly on the rise will restart very low dose lisinopril only. Lumbar Spinal stenosis She has no evidence of cauda equina syndrome per Dr. Reveles, ortho-pedic surgery and Dr. Pedroza who reviewed the case, spine surgeon in [facility], physical therapy (PT), occupational therapy (OT) and acute Vs subacute rehabilitation. Gastroesophageal reflux disease. on Carafate and Famotidine Depression on chronic Paxil. Hypothyroidism on Synthroid. Urinary incontinence on Hytrin Disposition: Acute vs subacute rehab as per PT/OT. ARU screen. VS,Fishbone, I+O VS, Fishbone, I+O Laboratory Tests 06/03/19 05:26 Red Blood Count 3.33 L, Mean Corpuscular Volume 89.2, Mean Corpuscular Hemoglobin 30.3, Mean Corpuscular Hemoglobin Concent 34.0, Red Cell Distribution Width 12.7, Neutrophils (%) (Auto) 44.1, Lymphocytes (%) (Auto) 40.8, Monocytes (%) (Auto) 10.2 H, Eosinophils (%) (Auto) 3.5 H, Basophils (%) (Auto) 1.1 H, Neutrophils # (Auto) 1.7, Lymphocytes # (Auto) 1.5, Monocytes # (Auto) 0.4, Eosinophils # (Auto) 0.1, Basophils # (Auto) 0.0, Calcium Level 8.2 L Vital Signs Date Time Temp Pulse Resp B/P (MAP) Pulse Ox O2 Delivery O2 Flow Rate FiO2 06/03/19 06:00 96.8 55 17 112/64 (80) 96 I&O- Last 24 Hours up to 6 AM 06/03/19 06:00 Intake Total 580 ml Output Total 450 ml Balance 130 ml AIMEE VALLE MD Jun 03, 2019 14:49
[2019-06-03] MEDS ORDERED: Hyoscyamine/Maalox/Lidoca Visc PO (15:15)
[2019-06-03] MEDS ORDERED: CLOP75TA2 PO (15:15)
[2019-06-03] MEDS ORDERED: SUCR10SS PO ×2 (15:15→17:11)
[2019-06-03] MEDS ORDERED: PLAV1TAB2 PO (17:08)
[2019-06-03] MEDS ORDERED: GI COCTAIL PO (17:17)
[2019-06-03] MEDS ORDERED: LISINOPRIL *2.5 MG* TAB PO SCH (21:00)
[2019-06-04 12:45] LABS: DRVV SCREEN 33.8 SEC
[2019-06-04 12:55] LABS: PTT LUPUS TYPE ANTICOAG SCREEN 0.8 (0-1.2)
--- NOTE | 2019-06-04 19:23 | DS.PDOC ---
Discharge Summary General Date of Admission May 28, 2019 at 10:35 Date of Discharge 06/03/19 Discharge Summary PROCEDURES PERFORMED DURING STAY: [None]. DISCHARGE DIAGNOSES: Acute / subacute left thalamic stroke Lumber spinal stenosis with lumber radiculopathy and leg weakness. Recurrent falls with gait instability and generalized muscle deconditioning Chronic anemia SECONDARY DIAGNOSIS: Chronic right basal ganglial infarct, TIA, Spinal stenosis, GERD, Hypertension, Hypothyroid, Hyperlipidemia, urinary incontinence, depression, gait ataxia, IBS, Glaucoma, Osteoarthritis, diverticulosis COMPLICATIONS/CHIEF COMPLAINT: Fall, Weakness. HISTORY OF PRESENT ILLNESS: See history and physical HOSPITAL COURSE: This is a 79-year-old female with chronic right basal ganglial infarct, TIA, GERD, Hypertension, Hypothyroid, Hyperlipidemia, depression, urinary incontinence presented with recurrent falls at home along with numbness of both the legs with extreme weakness. She was found to have acute or subacute left thalamic stroke and Lumber spinal stenosis in lumbosacral area with lumber radiculopathy without signs of cauda equina. Acute/subacute left thalamic stroke. Echocardiogram : no atrial or ventricular thrombus. No carotid artery disease that is hemodynamically significant. ASA, Plavix and lipitor, Gabapentin Physical therapy (PT) /OT Chronic right basal ganglial infarct with gait ataxia. on asa, plavix, lipitor, fall precautions physical therapy / acute rehab unit screening. pt lives in her own apartment near family and is alone most of the day. Hypertension. due to episode of sbp in the 70's discontinued lisinopril and hctz. Now Bp slightly on the rise will restart very low dose lisinopril only. Lumbar Spinal stenosis with lumber radiculopathy She has no evidence of cauda equina syndrome per Dr. Reveles, ortho-pedic surgery and Dr. Pedroza who reviewed the case, spine surgeon in [facility], physical therapy (PT), occupational therapy (OT) and acute Vs subacute rehabilitation. Gastroesophageal reflux disease. on Carafate and Famotidine Depression on chronic Paxil. Hypothyroidism on Synthroid. Urinary incontinence on Hytrin DISCHARGE MEDICATIONS: Please see below. ALLERGIES: Please see below. PHYSICAL EXAMINATION ON DISCHARGE: VITAL SIGNS: Please see below. GENERAL: The patient is awake, alert, oriented to herself, place and time. Face is symmetric. No facial drooping. HEENT: Anicteric sclerae. Tongue is midline. Currently at 45 degree head elevation in bed, unable to stand. NECK: No jugular venous distension. No thyromegaly or cervical lymphadenopathy. Lungs are clear to auscultation. No wheezes,rales or rhonchi. Air entry is equal bilaterally. Some scoliosis noted. Heart: S1, S2, sinus rhythm. No murmurs, rubs or gallops. Abdomen is soft, nontender,nondistended. (+) BS X 4 quadrants. no rebound Extremities: No cyanosis, clubbing or pitting edema. Neurologically, Mini-mental status exam is 21. Motor function is 5/5 times bilateral upper extremities. Lower extremities: Gait was not tested. Sensation was intact in the bilateral lower extremities to pinprick and light touch. The patient was 5/5 in bilateral lower extremities. Negative Babinski bilaterally. LABORATORY DATA: Please see below. IMAGING STUDY: Magnetic Resonance Imaging (MRI) of the brain 05/27/2019: Focus of abnormal diffusion, weighted in ADC map signal in the left thalamus, barely visible on flare weighted imaging consistent with an acute or subacute left thalamic infarct. Multiple foci of T2 lengthening are demonstrated in the subcortical periventricular centrum, semiovale and pontine white matter consistent with age-related small vessel gliosis, chronic lacunar infarct at the right basal ganglia. magnetic Resonance Angiography (MRA) of the head without contrast: Luminal irregularity in intracranial carotid arteries bilaterally consistent with atherosclerotic changes without evidence of high grade stenosis, otherwise unremarkable. Lumbar spine Magnetic Resonance Imaging (MRI): Decreased marrow space signal in lumbar vertebrae in T1 weighted images consistent with underlying myeloproliferative abnormality or chronic anemia. Multilevel foraminal stenosis mild at L2/L3, moderate at L3/4, severe at L4/5 and moderate L5/S1. ACTIVITY: [As tolerated]. DIET: As tolerated DISPOSITION: 62 D/T Rehab Facility. DISCHARGE INSTRUCTIONS: Follow up with PMD in 2 weeks ITEMS TO FOLLOWUP ON ON OUTPATIENT: 1. . DISCHARGE CONDITION: [Stable]. TIME SPENT ON DISCHARGE: 35 minutes. Vital Signs/I&Os Vital Signs Date Time Temp Pulse Resp B/P (MAP) Pulse Ox O2 Delivery O2 Flow Rate FiO2 06/03/19 14:00 97.0 72 16 111/59 (76) 100 I&O- Last 24 Hours up to 6 AM 06/04/19 06:00 Intake Total 420 ml Output Total 200 ml Balance 220 ml Discharge Medications Scheduled Aspirin (Aspirin EC) 81 Mg Tab, 81 MG PO DAILY, (Reported) Atorvastatin Calcium (Atorvastatin Calcium) 40 Mg Tab, 40 MG PO DAILY, (Reported) Bimatoprost (Lumigan) 0.01% 2.5ML Drops, 1 DROP OU QHS, (Reported) Clopidogrel Bisulfate (Plavix) 75 Mg Tablet, 75 MG PO DAILY, (Reported) Gabapentin (Neurontin) 100 Mg Capsule, 100 MG PO DAILY, (Reported) Levothyroxine Sodium (Synthroid) 50 Mcg Tab, 50 MCG PO DAILY, (Reported) Lisinopril/Hydrochlorothiazide (Lisinopril-Hctz 10-12.5 mg Tab) 1 Each Tablet, 1 TAB PO DAILY, (Reported) Omeprazole (Omeprazole) 20 Mg Capsule.dr, 20 MG PO DAILY, (Reported) Paroxetine HCl (Paroxetine HCl) 20 Mg Tablet, 20 MG PO DAILY, (Reported) Sucralfate (Sucralfate) 1 Gm/10 Ml Oral.susp, 10 ML PO AC, (Reported) Terazosin HCl (Terazosin HCl) 5 Mg Capsule, 5 MG PO QHS, (Reported) Scheduled PRN [Gi [place]ctail] , 50 ML PO Q6H PRN for GI UPSET, (Reported) [Hyoscyamine/Maalox/Lidoca Visc] 50 ML SUSP, 50 ML PO Q6HP PRN for GI UPSET Allergies Coded Allergies: Penicillins (Verified Allergy, Severe, THROAT CLOSES, 06/03/19) meperidine (Verified Allergy, Severe, ANAPHYLAXIS, 05/27/19) AIMEE VALLE MD Jun 04, 2019 19:23
== END 2019-06-03 15:53 | DRG 66 ==
LOC: M ED 19:45 → M ED INP 19:46 → M MSPAV 23:23 → OBSVTOIN 05-28 10:35
PROVIDERS: ADMIT Internal Medicine; ATTEND Internal Medicine Nephrology
DX: I63.9 Cerebral infarction, unspecified (principal); M48.061 Spinal stenosis, lumbar region without neurogenic claudication; M54.16 Radiculopathy, lumbar region; D64.9 Anemia, unspecified; R29.6 Repeated falls; R26.89 Other abnormalities of gait and mobility; K21.9 Gastro-esophageal reflux disease without esophagitis; I10 Essential (primary) hypertension; M19.90 Unspecified osteoarthritis, unspecified site; H40.9 Unspecified glaucoma; K57.30 Diverticulosis of large intestine without perforation or abscess without bleeding; E03.9 Hypothyroidism, unspecified; E78.5 Hyperlipidemia, unspecified; F32.9 Major depressive disorder, single episode, unspecified; Z79.82 Long term (current) use of aspirin; Z79.899 Other long term (current) drug therapy; Z88.0 Allergy status to penicillin; Z88.8 Allergy status to other drugs, medicaments and biological substances; Z87.891 Personal history of nicotine dependence; Z85.828 Personal history of other malignant neoplasm of skin

== ENCOUNTER 2019-06-03 15:27 | Inpatient (IN) | payer MEDICARE ==
[~2019-06-03] VITALS: Ht 154.9 cm; Wt 50.8 kg
[~2019-06-03 15:27] MED LIST changes: +CLOP75TA2 PO; +GABA-1171; +Hyoscyamine/Maalox/Lidoca Visc PO; +LIDOCAINE 5% (LIDODERM) PATCH TD SCH; +LISI10TA15 PO; +NEUR100C PO; +OMEP-218 PO; -OMEP1CAP73 PO; +OMEP20CA4 PO; +PARO1TAB33 PO; +SUCR10SS PO; +TERA5CAP3; +TERA5CAP3 PO
[2019-06-03 16:00] VITALS: BP 133/64
--- NOTE | 2019-06-03 16:26 | HPEPDOC ---
Talent Development Specialist Note DATE OF ADMISSION:06/03/19 SOURCE OF ADMISSION INFORMATION: patient and [facility] records CHIEF COMPLAINT:stroke HISTORY OF PRESENT ILLNESS: 79F pmh spinal stenosis, HTN, Hypothyroidism, TIA, HLD, IBS, GERD, Esophageal strictures, diverticulosis who fell 6 times at home due to leg weakness, without head trauma or LOC and presented to [facility] ED with an inability to walk. CTH was negative for acute changes, MRI showed, Focus of abnormal diffusion weighted and ADC map signal in the left thalamus barely visible on flair weighted imaging consistent with an acute to subacute left thalamic infarct Chronic lacunar infarct right basal ganglia. She was placed on telemetry for new diagnosis of stroke. Further workup entailed a lumbar MRI for bilateral LE weakness which showed severe foraminal stenosis L4-L5 with preserved saddle region sensation, with a history of urinary incontinence. Imaging was reviewed by patients spine doctor who did not recommend any specific treatment for her back. Neurology recommended Plavix daily, continue ASA and statin. ECHO was also recommended which showed, Normal left ventricular size, wall thickness, and normal global left ventricular systolic function. The estimated global left ventricular sy stolic ejection fraction is 60-65%. She was evaluated by therapy noted to have impairments in ADL and mobility below her prior level of function and deemed medically appropriate for discharge to ARU on 06/03/19. REVIEW OF SYSTEMS: The following is a completed review of systems and has been reviewed. Review of systems otherwise unremarkable. PAIN: Patient self reports neck pain EYES: No recent vision changes EARS, NOSE, & THROAT: No throat pain, or dysphagia, or rhinorrhea CARDIOVASCULAR: Denies chest pain or palpitations PULMONARY: Denies shortness of breath GASTROINTESTINAL: Denies constipation/diarrhea GENITOURINARY: +incontinence MUSCULOSKELETAL: neck pain NEUROLOGICAL:lumbar radiculopathy, +bilat leg weakness HEMATOLOGICAL: +easy bruising SKIN:no rash PSYCHIATRIC: Unremarkable All other review of systems found to be negative. PAST MEDICAL HISTORY: as per HPI PAST SURGICAL HISTORY: SOFIA, basal cell carcinoma resection, bladder suspension ALLERGIES: Please see below. MEDICATIONS: Please see below. FAMILY HISTORY: CAD, Lung and skin cancer SOCIAL HISTORY: Former smoker DIET: low sodium PHYSICAL EXAMINATION: VITAL SIGNS: Please see below. GENERAL: Pleasant and cooperative. No acute distress. HEENT: PERRL. Extraocular movements intact. Clear conjunctiva CARDIOVASCULAR: Regular rate and rhythm. No murmurs, rubs, or gallops LUNGS: Clear to auscultation bilaterally. No wheezes. No rhonchi ABDOMEN: Soft, nontender, nondistended. Positive bowel sounds. Normal active bowel sounds NEUROLOGICAL: Alert and oriented times three. Cranial nerves II through XII grossly intact. Sensation grossly intact +hyperrefelxxia throughout, no Hoffmans or babinski EXTREMITIES: 4\5 strength bilateral upper extremities. 4\5 strength right lower extremity. 4/5 strength in left lower extremity. (-) SLR bilat SKIN: scattered ecchymosis LABORATORY DATA: Please see below. IMAGING:Imaging documentation personally reviewed by record FUNCTIONAL STATUS: Premorbid: Independent with all activities of daily life as well as mobility On Admission: Contact guard assistance for bathing, upper body dressing, bed chair and wheelchair transfers, toilet transfers, ambulation. GOALS: Mod-I with RW community distances, stairs, bathing, dressing toileting, medical optimization. ASSESSMENT:79-year-old F with past medical history of HTN, TIA, HLD who presents status post multiple falls found to have thalamic stroke in setting of severe bilateral lumbar radiculopathy PLAN: 1. PT/OT, strengthen/stretch/maintain ROM bilat UE andLE, advance gait, fall recovery, dynamic balance, ADL safety awareness SL-assess for cogntiive deficits, swallow eval-hx of esophageal strictures 2. Neuro: s/p thalamic stroke- c/u ASA, Plavix, and statin for secondary stroke prevention -will increase home dose of Paroxetine to 40mg daily for motor recovery 3. Ortho: severe bilateral lumbar stenosis contributing to falls, cauda equina ruled out- f/u outpatient ortho 4. Cardio: htn c/u lisinopril, medicine consutled to assist 5. resp: encourage incentive spirometry, monitor for infection 6. Endo: hypothyroidism, c/u Synthroid 7. GI ppx: pepcid BID and sucralfate 8. DVT ppx: Lovenox 9. Pain: gabapentin renally dosed, tylenol 10. : hx of incontinence, c/u terazosin 11. Dispo: TBD POST ADMISSION PHYSICIAN EVALUATION: Medical and functional status: Description of medical status, medical assessment: As above. Rehabilitation diagnosis and current and prior cold morbid medical conditions as above. Risk of complications and plans to mitigate them as above. Description of functional status current status is as above. Prior status as above. Status compared to preadmission: There are no clinically significant differences between the patient's current status and the information described on the p readmission screening document. Treatment plan anticipated: Treatment plan is as described above. Required disciplines including physical therapy, occupational therapy, others as noted above Intensity of services: 3 hours a day, 6 days a week. Special considerations: There are no specific special or safety considerations that would likely preclude immediate implementation of an intensive rehabilitation program or subsequently influence the plan of care. ATTESTATION: Considering all the information above, it is my best judgment that this patient requires intensive rehabilitation therapy as described above and an inpatient hospital environment due to the complexity of nursing, medical, and rehabilitation needs required by the patient. Furthermore, this patient can reasonably be expected to participate in an benefit from an inpatient rehabilitation stay with an interdisciplinary team approach to the delivery of rehabilitation care under the direction and supervision of rehabilitation physician PROGNOSIS: Excellent. ESTIMATED LENGTH OF STAY:14-18 days. PROJECTED DISCHARGE DESTINATION: Home with family support and any durable medical equipment required to increase functional safety and mobility. TIME SPENT COUNSELING AND COORDINATING INITIAL CARE: Greater than 70 minutes. Vital Signs Vital Signs Date Time Temp Pulse Resp B/P (MAP) Pulse Ox O2 Delivery O2 Flow Rate FiO2 06/03/19 16:00 99.2 71 20 133/64 (87) 98 Home Medications Scheduled Aspirin (Aspirin EC) 81 Mg Tab, 81 MG PO DAILY, (Reported) Atorvastatin Calcium (Atorvastatin Calcium) 40 Mg Tab, 40 MG PO DAILY, (Reported) Bimatoprost (Lumigan) 0.01% 2.5ML Drops, 1 DROP OU QHS, (Reported) Clopidogrel Bisulfate (Plavix) 75 Mg Tablet, 75 MG PO DAILY, (Reported) Gabapentin (Neurontin) 100 Mg Capsule, 100 MG PO DAILY, (Reported) Levothyroxine Sodium (Synthroid) 50 Mcg Tab, 50 MCG PO DAILY, (Reported) Lisinopril/Hydrochlorothiazide (Lisinopril-Hctz 10-12.5 mg Tab) 1 Each Tablet, 1 TAB PO DAILY, (Reported) Omeprazole (Omeprazole) 20 Mg Capsule.dr, 20 MG PO DAILY, (Reported) Paroxetine HCl (Paroxetine HCl) 20 Mg Tablet, 20 MG PO DAILY, (Reported) Sucralfate (Sucralfate) 1 Gm/10 Ml Oral.susp, 10 ML PO AC, (Reported) Terazosin HCl (Terazosin HCl) 5 Mg Capsule, 5 MG PO QHS, (Reported) Scheduled PRN [Gi Coctail] , 50 ML PO Q6H PRN for GI UPSET, (Reported) [Hyoscyamine/Maalox/Lidoca Visc] 50 ML SUSP, 50 ML PO Q6HP PRN for GI UPSET Allergies Coded Allergies: Penicillins (Verified Allergy, Severe, THROAT CLOSES, 06/03/19) meperidine (Verified Allergy, Severe, ANAPHYLAXIS, 05/27/19) A-FIB/CHADSVASC A-FIB History Current/History of A-Fib/PAF?: No DONOVAN GALLEGOS MD Jun 03, 2019 16:26
[2019-06-03] MEDS ORDERED: BISACODYL 10 MG SUPP PR PRN (16:30)
[2019-06-03] MEDS ORDERED: PLAV1TAB2 PO (17:08)
[2019-06-03] MEDS ORDERED: SUCR10SS PO (17:11)
[2019-06-03] MEDS: SUCRALFATE 1 GM TAB PO SCH ×2 (17:14→20:50)
[2019-06-03] MEDS ORDERED: GI COCTAIL PO (17:17)
[2019-06-03] MEDS: TERAZOSIN 5 MG CAP PO SCH (20:50)
[2019-06-03] MEDS: LIDOCAINE 5% (LIDODERM) PATCH TD SCH (20:50)
[2019-06-03] MEDS: PARoxetine 20 MG TAB PO SCH (20:51)
[2019-06-03] MEDS: LISINOPRIL *2.5 MG* TAB PO SCH (20:51)
[2019-06-03] MEDS: SENNA 8.6 MG TAB (SENOKOT) PO SCH (20:51)
[2019-06-03] MEDS: DOCUSATE SODIUM 100 MG CAP PO SCH (20:51)
[2019-06-03] MEDS: FAMOTIDINE 20 MG TAB PO SCH (20:51)
[2019-06-03 21:00] VITALS: BP 138/65
[2019-06-03] MEDS ORDERED: **NOTE PATIENT COMMENT** MISC XX SCH (21:00)
[2019-06-04] MEDS: LEVOTHYROXINE 50MCG TABLET (0.05MG) PO SCH (05:26)
[2019-06-04 05:50] VITALS: BP 123/66
[2019-06-04 07:10] LABS: BASO % 0.8 % (0.0-1.0); EOS # 0.2 10^3/uL (0.0-0.5); HEMATOCRIT 30.2 % (36.0-47.0); LYMPH # 1.3 10^3/uL (1.5-5.0); LYMPH % 32.9 % (24.0-44.0); MEAN CORPUSCULAR HEMOGLOBIN 29.7 pg (27.0-33.0); MEAN CORPUSCULAR HGB CONC 33.1 g/dl (32.0-36.5); MEAN CORPUSCULAR VOLUME 89.6 fl (80.0-96.0); MONO # 0.6 10^3/uL (0.0-0.8); MONO % 14.1 % (0.0-5.0); NEUTROPHILS # 1.9 10^3/uL (1.5-8.5); NEUTROPHILS % 47.9 % (36.0-66.0); PLATELET COUNT, AUTOMATED 176 10^3/uL (150-450); RED BLOOD COUNT 3.37 10^6/uL (4.00-5.40)
[2019-06-04] MEDS: SUCRALFATE 1 GM TAB PO SCH ×4 (08:41→20:40)
[2019-06-04] MEDS: DOCUSATE SODIUM 100 MG CAP PO SCH ×2 (08:41→20:39)
[2019-06-04] MEDS: ASPIRIN 81 MG CHEW TABLET PO SCH (08:41)
[2019-06-04] MEDS: CLOPIDOGREL 75 MG TAB PO SCH (08:41)
[2019-06-04] MEDS: GABAPENTIN 100 MG CAP PO SCH (08:41)
[2019-06-04] MEDS: ATORVASTATIN 20 MG TAB PO SCH (08:41)
[2019-06-04] MEDS: FAMOTIDINE 20 MG TAB PO SCH ×2 (08:41→20:39)
[2019-06-04] MEDS: ENOXAPARIN 30 MG/0.3 ML SYR (J1650) SC SCH (08:42)
[2019-06-04] MEDS: **NOTE PATIENT COMMENT** MISC XX SCH (08:42)
[2019-06-04 08:43] LABS: ALT/SGPT 30 U/L (12-78); BILIRUBIN,TOTAL 0.8 MG/DL (0.2-1.0); BLOOD UREA NITROGEN 16 MG/DL (7-18); CARBON DIOXIDE LEVEL 26 MEQ/L (21-32); CHLORIDE LEVEL 105 MEQ/L (98-107); CREATININE FOR GFR 0.82 MG/DL (0.55-1.30); GLOMERULAR FILTRATION RATE > 60.0 (>39); GLUCOSE, FASTING 83 MG/DL (70-100); POTASSIUM SERUM 3.8 MEQ/L (3.5-5.1); SODIUM LEVEL 138 MEQ/L (136-145); TOTAL PROTEIN 5.4 GM/DL (6.4-8.2)
[2019-06-04 14:00] VITALS: BP 117/53
--- NOTE | 2019-06-04 19:40 | HPEPDOC ---
General Date of Admission Jun 03, 2019 at 15:55 Date of Service: Jun 04, 2019 Chief Complaint The patient is a 79-year-old female admitted with a reason for visit of Left Thalamic Stroke. Source: Patient, Old records Severity: Moderate History of Present Illness Consultation report Consultation requested by Dr Lal Consultation for management of medical comorbidities HPI:This is a 79-year-old female with PMH of chronic right basal ganglial infa rct, TIA, GERD, Hypertension, Hypothyroid, Hyperlipidemia, depression, urinary incontinence spinal stenosis, esophageal stricture, glaucoma, IBS, diverticulosis presented with recurrent falls at home found to have acute or subacute left thalamic stroke and spinal stenosis in lumbosacral area without signs of cauda equina. Patient was admitted in [facility] from 05/28 to 06/03 then discharged to ARU for further rehabilitation as per PT and OT recommendations. She complains of pain in her left leg located in the front of the thigh, shock like in nature going up and down the thigh up to the groin then radiating back towards the left buttock. About 5/10 in intensity at present. Her other leg is good. Denies any numbness at present. Says that her legs are stronger but still not as strong as usual. Home Medications Scheduled Aspirin (Aspirin EC) 81 Mg Tab, 81 MG PO DAILY, (Reported) Atorvastatin Calcium (Atorvastatin Calcium) 40 Mg Tab, 40 MG PO DAILY, (Reported) Bimatoprost (Lumigan) 0.01% 2.5ML Drops, 1 DROP OU QHS, (Reported) Clopidogrel Bisulfate (Plavix) 75 Mg Tablet, 75 MG PO DAILY, (Reported) Gabapentin (Neurontin) 100 Mg Capsule, 100 MG PO DAILY, (Reported) Levothyroxine Sodium (Synthroid) 50 Mcg Tab, 50 MCG PO DAILY, (Reported) Lisinopril/Hydrochlorothiazide (Lisinopril-Hctz 10-12.5 mg Tab) 1 Each Tablet, 1 TAB PO DAILY, (Reported) Omeprazole (Omeprazole) 20 Mg Capsule.dr, 20 MG PO DAILY, (Reported) Paroxetine HCl (Paroxetine HCl) 20 Mg Tablet, 20 MG PO DAILY, (Reported) Sucralfate (Sucralfate) 1 Gm/10 Ml Oral.susp, 10 ML PO AC, (Reported) Terazosin HCl (Terazosin HCl) 5 Mg Capsule, 5 MG PO QHS, (Reported) Scheduled PRN [Gi [place]] , 50 ML PO Q6H PRN for GI UPSET, (Reported) [Hyoscyamine/Maalox/Lidoca Visc] 50 ML SUSP, 50 ML PO Q6HP PRN for GI UPSET Allergies Coded Allergies: Penicillins (Verified Allergy, Severe, THROAT CLOSES, 06/03/19) meperidine (Verified Allergy, Severe, ANAPHYLAXIS, 05/27/19) Past Medical History Medical History Spinal stenosis. Chronic hypertension. Hypothyroidism TIA Dyslipidemia Osteoarthritis. Glaucoma IBS GERD Esophageal stricture. Diverticulosis. 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 Status post bladder suspension surgery Family History Coronary artery disease. Lung cancer. Skin cancer Social History * Smoker: former Smoker Alcohol: Denies Drugs: denies A-FIB/CHADSVASC A-FIB History Current/History of A-Fib/PAF?: No Review of Systems Constitutional: Denies: Chills, Fever, Night Sweats Eyes: Denies: Pain, Vision change ENT: Denies: Head Aches, Ear Pain, Dysphagia Skin: Denies: Rash, Lesions, Breakdown Pulmonary: Denies: Dyspnea, Cough Cardiovascular: Denies: Chest Pain, Palpitations, Orthopnea, Paroxysmal Noc. Dyspnea, Lt Headedness Gastrointestinal: Denies: Nausea, Vomiting, Abdominal Pain, Diarrhea Genitourinary: Reports: Frequency; Denies: Dysuria, Incontinence, Retention Hematologic: Reports: Bruising; Denies: Bleeding Excessively Musculoskeletal: Reports: Back Pain, Leg Pain (left) Physical Examination General Exam: Positive: Alert, Cooperative, No Acute Distress Eye Exam: Positive: Conjunctiva & lids normal; Negative: Sclera icteric ENT Exam: Positive: Atraumatic, Mucous membr. moist/pink, Pharynx Normal Neck Exam: Positive: Supple; Negative: JVD, thyromegaly Chest Exam: Positive: Clear to auscultation, Normal air movement Heart Exam: Positive: Rate Normal, Regular Rhythm, Normal S1, Normal S2; Negative: Murmurs, Rubs Abdomen Exam: Positive: Normal bowel sounds, Soft; Negative: Tenderness, Hepatospenomegaly Extremity Exam: Positive: Normal pulses; Negative: Clubbing, Cyanosis, Edema Skin Exam: Positive: Nl turgor and temperature; Negative: Breakdown, Lesion Neuro Exam: Positive: Normal Tone, Cranial Nerves 3-12 NL, Reflexes 2+, Other (strength 4/4 in all the extremities.) Psych Exam: Positive: Oriented x 3 Vital Signs Vital Signs Date Time Temp Pulse Resp B/P (MAP) Pulse Ox O2 Delivery O2 Flow Rate FiO2 06/04/19 14:00 97.0 63 20 117/53 (74) 98 Laboratory Data Labs 24H Laboratory Tests 2 06/04/19 02:00: Urine Color STRAW, Urine Appearance CLEAR, Urine pH 5.0, Urine Specific Diagonal 1.010, Urine Protein NEGATIVE, Urine Glucose (UA) NEGATIVE, Urine Ketones NEGATIVE, Urine Blood NEGATIVE, Urine Nitrite NEGATIVE, Urine Bilirubin NEGATIVE, Urine Urobilinogen 0.2, Urine Leukocyte Esterase NEGATIVE, Urine WBC (Auto) 0, Urine RBC (Auto) 0, Urine Hyaline Casts (Auto) 0, Urine Bacteria (Auto) NEGATIVE, Urine Squamous Epithelial Cells 0, Urine Sperm (Auto) 06/04/19 06:51: Immature Granulocyte % (Auto) 0.3, White Blood Count 4.0, Red Blood Count 3.37L, Hemoglobin 10.0L, Hematocrit 30.2L, Mean Corpuscular Volume 89.6, Mean C orpuscular Hemoglobin 29.7, Mean Corpuscular Hemoglobin Concent 33.1, Red Cell Distribution Width 12.6, Platelet Count 176, Neutrophils (%) (Auto) 47.9, Lymphocytes (%) (Auto) 32.9, Monocytes (%) (Auto) 14.1H, Eosinophils (%) (Auto) 4.0H, Basophils (%) (Auto) 0.8, Neutrophils # (Auto) 1.9, Lymphocytes # (Auto) 1.3L, Monocytes # (Auto) 0.6, Eosinophils # (Auto) 0.2, Basophils # (Auto) 0.0, Nucleated Red Blood Cells % (auto) 0.0, Anion Gap 7L, Glomerular Filtration Rate > 60.0, Blood Urea Nitrogen 16, Creatinine 0.82, Sodium Level 138, Potassium Level 3.8, Chloride Level 105, Carbon Dioxide Level 26, Calcium Level 9.0, Aspartate Amino Transf (AST/SGOT) 25, Alanine Aminotransferase (ALT/SGPT) 30, Alkaline Phosphatase 58, Total Bilirubin 0.8, Total Protein 5.4L, Albumin 3.0L, Albumin/Globulin Ratio 1.25 CBC/BMP Laboratory Tests 9/13/19 06:51 Red Blood Count 3.37 L, Mean Corpuscular Volume 89.6, Mean Corpuscular Hemoglobin 29.7, Mean Corpuscular Hemoglobin Concent 33.1, Red Cell Distribution Width 12.6, Neutrophils (%) (Auto) 47.9, Lymphocytes (%) (Auto) 32.9, Monocytes (%) (Auto) 14.1 H, Eosinophils (%) (Auto) 4.0 H, Basophils (%) (Auto) 0.8, Neutrophils # (Auto) 1.9, Lymphocytes # (Auto) 1.3 L, Monocytes # (Auto) 0.6, Eosinophils # (Auto) 0.2, Basophils # (Auto) 0.0, Calcium Level 9.0, Aspartate Amino Transf (AST/SGOT) 25, Alanine Aminotransferase (ALT/SGPT) 30, Alkaline Phosphatase 58, Total Bilirubin 0.8, Total Protein 5.4 L, Albumin 3.0 L Assessment/Plan This is a 79-year-old female with PMH of chronic right basal ganglial infarct, TIA, GERD, Hypertension, Hypothyroid, Hyperlipidemia, depression, urinary incontinence presented with recurrent falls at home found to have acute or subacute left thalamic stroke and spinal stenosis in lumbosacral area without signs of cauda equina. Pateint was admitted in [facility] from 05/28 to 06/03 then discharged to ARU for further rehabilitation as per PT and OT recommendations. Lumbar Spinal stenosis with lumber radiculopathy She has no evidence of cauda equina syndrome per Dr. Reveles, ortho-pedic surgery and Dr. Pedroza who reviewed the case, spine surgeon in [facility] on gabapentin physical therapy (PT), occupational therapy (OT) Acute/subacute left thalamic stroke. Echocardiogram : no atrial or ventricular thrombus. No carotid artery disease that is hemodynamically significant. ASA, Plavix and lipitor, Gabapentin Physical therapy (PT) /OT as per Dr Lal. Chronic right basal ganglial infarct with gait ataxia. on asa, plavix, lipitor, fall precautions Getting PT and OT as per Dr Lal Hypertension. lisinopril will hold is SBP< 130 Gastroesophageal reflux disease. on Carafate and Famotidine Depression on chronic Paxil. Hypothyroidism on Synthroid. Urinary incontinence on Hytrin Plan / VTE VTE Prophylaxis Ordered?: Yes AIMEE VALLE MD Jun 04, 2019 19:40
[2019-06-04 20:00] VITALS: BP 113/58
[2019-06-04] MEDS: LIDOCAINE 5% (LIDODERM) PATCH TD SCH (20:39)
[2019-06-04] MEDS: SENNA 8.6 MG TAB (SENOKOT) PO SCH (20:39)
[2019-06-04] MEDS: TERAZOSIN 5 MG CAP PO SCH (20:40)
[2019-06-04] MEDS: LISINOPRIL *2.5 MG* TAB PO SCH (20:40)
[2019-06-04] MEDS: PARoxetine 20 MG TAB PO SCH (20:40)
[2019-06-05 06:00] VITALS: BP 121/59
[2019-06-05] MEDS: LEVOTHYROXINE 50MCG TABLET (0.05MG) PO SCH (06:21)
[2019-06-05] MEDS: ENOXAPARIN 30 MG/0.3 ML SYR (J1650) SC SCH (09:22)
[2019-06-05] MEDS: FAMOTIDINE 20 MG TAB PO SCH ×2 (09:22→20:36)
[2019-06-05] MEDS: SUCRALFATE 1 GM TAB PO SCH ×4 (09:22→20:37)
[2019-06-05] MEDS: DOCUSATE SODIUM 100 MG CAP PO SCH ×2 (09:22→20:36)
[2019-06-05] MEDS: ASPIRIN 81 MG CHEW TABLET PO SCH (09:23)
[2019-06-05] MEDS: ATORVASTATIN 20 MG TAB PO SCH (09:23)
[2019-06-05] MEDS: **NOTE PATIENT COMMENT** MISC XX SCH (09:23)
[2019-06-05] MEDS: CLOPIDOGREL 75 MG TAB PO SCH (09:23)
[2019-06-05] MEDS: GABAPENTIN 100 MG CAP PO SCH (09:23)
[2019-06-05 14:22] VITALS: BP 118/60
[2019-06-05 20:00] VITALS: BP 133/75
[2019-06-05] MEDS: LIDOCAINE 5% (LIDODERM) PATCH TD SCH (20:35)
[2019-06-05] MEDS: SENNA 8.6 MG TAB (SENOKOT) PO SCH (20:36)
[2019-06-05] MEDS: LISINOPRIL *2.5 MG* TAB PO SCH (20:36)
[2019-06-05] MEDS: TERAZOSIN 5 MG CAP PO SCH (20:36)
[2019-06-05] MEDS: PARoxetine 20 MG TAB PO SCH (20:37)
[2019-06-06 04:00] VITALS: BP 123/54
[2019-06-06] MEDS: LEVOTHYROXINE 50MCG TABLET (0.05MG) PO SCH (06:12)
[2019-06-06 06:53] LABS: HEMATOCRIT 31.3 % (36.0-47.0); HEMOGLOBIN 10.3 g/dl (12.0-15.5); MEAN CORPUSCULAR HEMOGLOBIN 28.9 pg (27.0-33.0); MEAN CORPUSCULAR HGB CONC 32.9 g/dl (32.0-36.5); MEAN CORPUSCULAR VOLUME 87.9 fl (80.0-96.0); PLATELET COUNT, AUTOMATED 189 10^3/uL (150-450); RED BLOOD COUNT 3.56 10^6/uL (4.00-5.40); WHITE BLOOD COUNT 3.8 10^3/uL (4.0-10.0)
[2019-06-06 09:00] VITALS: BP 83/48
[2019-06-06] MEDS: DOCUSATE SODIUM 100 MG CAP PO SCH ×2 (09:29→21:13)
[2019-06-06 09:30] VITALS: BP 110/50
[2019-06-06] MEDS: ASPIRIN 81 MG CHEW TABLET PO SCH (09:30)
[2019-06-06] MEDS: SUCRALFATE 1 GM TAB PO SCH ×4 (09:30→21:13)
[2019-06-06] MEDS: ATORVASTATIN 20 MG TAB PO SCH (09:31)
[2019-06-06] MEDS: GABAPENTIN 100 MG CAP PO SCH (09:32)
[2019-06-06] MEDS: CLOPIDOGREL 75 MG TAB PO SCH (09:32)
[2019-06-06] MEDS: FAMOTIDINE 20 MG TAB PO SCH ×2 (09:33→21:13)
[2019-06-06] MEDS: ENOXAPARIN 30 MG/0.3 ML SYR (J1650) SC SCH (09:33)
[2019-06-06] MEDS: **NOTE PATIENT COMMENT** MISC XX SCH (09:33)
[2019-06-06 12:00] VITALS: BP 88/55
[2019-06-06 14:00] VITALS: BP 98/50
--- NOTE | 2019-06-06 16:12 | IPNPDOC ---
Subjective Date Seen The patient was seen on 06/06/19. Subjective Chief Complaint/HPI Pateint complained of light headedness and dizziness while on the commode. Bp was checked and was low at 85/55. Improved spontaneously after PT but then again went down to 95/65 but pateint did not have any dizziness or light headedenss. no other complaints, good appetite, no fever or chills, no chest pain ro sob , no leg pain or numbness. no weakness. no tachycardia and no confusion. Objective Physical Examination General Exam: Positive: Alert, Cooperative, No Acute Distress Eye Exam: Positive: Conjunctiva & lids normal; Negative: Sclera icteric ENT Exam: Positive: Atraumatic, Mucous membr. moist/pink, Pharynx Normal Neck Exam: Positive: Supple; Negative: JVD, thyromegaly Chest Exam: Positive: Clear to auscultation, Normal air movement Heart Exam: Positive: Rate Normal, Regular Rhythm, Normal S1, Normal S2; Negative: Murmurs, Rubs Abdomen Exam: Positive: Normal bowel sounds, Soft; Negative: Tenderness, Hepatospenomegaly Extremity Exam: Positive: Normal pulses; Negative: Clubbing, Cyanosis, Edema Skin Exam: Positive: Nl turgor and temperature; Negative: Breakdown, Lesion Neuro Exam: Positive: Normal Tone, Cranial Nerves 3-12 NL, Reflexes 2+, Other (strength 4/4 in all the extremities.) Psych Exam: Positive: Oriented x 3 Assessment /Plan Assessment This is a 79-year-old female with PMH of chronic right basal ganglial infarct, TIA, GERD, Hypertension, Hypothyroid, Hyperlipidemia, depression, urinary incontinence presented with recurrent falls at home found to have acute or subacute left thalamic stroke and spinal stenosis in lumbosacral area without signs of cauda equina. Pateint was admitted in [facility] from 05/28 to 06/03 then discharged to ARU for further rehabilitation as per PT and OT recommendations. Hypotension pt has h/o Hypertension. Was on lisinopril/ hctz 20/12.5 at home i am suspicious whether she was taking this every day or not. here she was on lisinopril 2.5 mg that made her hypotensive this am will dc lisinoprl and also reduce hytrin with hold parameters as this may also be responsible for the hypotension. Lumbar Spinal stenosis with lumber radiculopathy She has no evidence of cauda equina syndrome per Dr. Reveles, ortho-pedic surgery and Dr. Pedroza who reviewed the case, spine surgeon in [facility] on gabapentin physical therapy (PT), occupational therapy (OT) Acute/subacute left thalamic stroke. Echocardiogram : no atrial or ventricular thrombus. No carotid artery disease that is hemodynamically significant. ASA, Plavix and lipitor, Gabapentin Physical therapy (PT) /OT as per Dr Lal. Chronic right basal ganglial infarct with gait ataxia. on asa, plavix, lipitor, fall precautions Getting PT and OT as per Dr Lal Gastroesophageal reflux disease. on Carafate and Famotidine Depression on chronic Paxil. Hypothyroidism on Synthroid. Urinary incontinence on Hytrin Plan/VTE VTE Prophylaxis Ordered?: Yes VS, I&O, 24H, [facility] Vital Signs/I&O Vital Signs Date Time Temp Pulse Resp B/P (MAP) Pulse Ox O2 Delivery O2 Flow Rate FiO2 06/06/19 14:00 97.6 66 18 98/50 (66) 98 I&O- Last 24 Hours up to 6 AM 06/06/19 06:00 Intake Total 780 ml Balance 780 ml Laboratory Data 24H LABS Laboratory Tests 2 06/06/19 06:28: Nucleated Red Blood Cells % (auto) 0.0 CBC/BMP Laboratory Tests 06/06/19 06:28 Red Blood Count 3.56 L, Mean Corpuscular Volume 87.9, Mean Corpuscular Hemoglobin 28.9, Mean Corpuscular Hemoglobin Concent 32.9, Red Cell Distribution Width 12.6 AIMEE VALLE MD Jun 06, 2019 16:12
[2019-06-06 20:00] VITALS: BP 110/57
[2019-06-06] MEDS: TERAZOSIN 1 MG CAP PO SCH (21:00)
[2019-06-06] MEDS: LIDOCAINE 5% (LIDODERM) PATCH TD SCH (21:13)
[2019-06-06] MEDS: SENNA 8.6 MG TAB (SENOKOT) PO SCH (21:13)
[2019-06-06] MEDS: PARoxetine 20 MG TAB PO SCH (21:13)
[2019-06-07] MEDS: LEVOTHYROXINE 50MCG TABLET (0.05MG) PO SCH (05:51)
[2019-06-07 06:00] VITALS: BP 151/77
[2019-06-07] MEDS: CLOPIDOGREL 75 MG TAB PO SCH (08:59)
[2019-06-07] MEDS: ATORVASTATIN 20 MG TAB PO SCH (08:59)
[2019-06-07] MEDS: ENOXAPARIN 30 MG/0.3 ML SYR (J1650) SC SCH (08:59)
[2019-06-07] MEDS: SUCRALFATE 1 GM TAB PO SCH ×4 (08:59→21:11)
[2019-06-07] MEDS: ASPIRIN 81 MG CHEW TABLET PO SCH (08:59)
[2019-06-07] MEDS: FAMOTIDINE 20 MG TAB PO SCH ×2 (08:59→21:11)
[2019-06-07] MEDS: DOCUSATE SODIUM 100 MG CAP PO SCH ×2 (08:59→21:10)
[2019-06-07] MEDS: GABAPENTIN 100 MG CAP PO SCH (08:59)
[2019-06-07] MEDS: **NOTE PATIENT COMMENT** MISC XX SCH (09:02)
[2019-06-07 14:00] VITALS: BP 110/64
--- NOTE | 2019-06-07 15:42 | IPNPDOC ---
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 She states she feels a little delirious at night. REVIEW OF SYSTEMS: The following is a completed review of systems and has been reviewed. Review of systems otherwise unremarkable. PAIN: Patient self reports neck pain EYES: No recent vision changes EARS, NOSE, & THROAT: No throat pain, or dysphagia, or rhinorrhea CARDIOVASCULAR: Denies chest pain or palpitations PULMONARY: Denies shortness of breath GASTROINTESTINAL: Denies constipation/diarrhea GENITOURINARY: +incontinence MUSCULOSKELETAL: neck pain NEUROLOGICAL:lumbar radiculopathy, +bilat leg weakness HEMATOLOGICAL: +easy bruising SKIN:no rash PSYCHIATRIC: Unremarkable All other review of systems found to be negative. PHYSICAL EXAMINATION: VITAL SIGNS: Please see below. GENERAL: Pleasant and cooperative. No acute distress. HEENT: PERRL. Extraocular movements intact. Clear conjunctiva CARDIOVASCULAR: Regular rate and rhythm. No murmurs, rubs, or gallops LUNGS: Clear to auscultation bilaterally. No wheezes. No rhonchi ABDOMEN: Soft, nontender, nondistended. Positive bowel sounds. Normal active bowel sounds NEUROLOGICAL: Alert and oriented times three. Cranial nerves II through XII grossly intact. Sensation grossly intact +hyperrefelxxia throughout, no Hoffmans or babinski EXTREMITIES: 4\5 strength bilateral upper extremities. 4\5 strength right lower extremity. 4/5 strength in left lower extremity. (-) SLR bilat SKIN: scattered ecchymosis . ASSESSMENT:79-year-old F with past medical history of HTN, TIA, HLD who presents status post multiple falls found to have thalamic stroke in setting of severe bilateral lumbar radiculopathy PLAN: 1. PT/OT, strengthen/stretch/maintain ROM bilat UE andLE, advance gait, fall rec overy, dynamic balance, ADL safety awareness SL-assess for cogntiive deficits, swallow eval-hx of esophageal strictures 2. Neuro: s/p thalamic stroke- c/u ASA, Plavix, and statin for secondary stroke prevention -c/u increased home dose of Paroxetine to 40mg for motor recovery, will switch to evening to see if helps with sleep 3. Ortho: severe bilateral lumbar stenosis contributing to falls, cauda equina ruled out- f/u outpatient ortho 4. Cardio: htn lisinopril held due to drops in BP, medicine consulted to assist- recs appreciated 5. resp: encourage incentive spirometry, monitor for infection 6. Endo: hypothyroidism, c/u Synthroid 7. GI ppx: pepcid BID and sucralfate 8. DVT ppx: Lovenox 9. Pain: gabapentin renally dosed, tylenol 10. : hx of incontinence, c/u terazosin, dose lowered due to low BPs, UA negative 11. Dispo: TBD Allergies Coded Allergies: Penicillins (Verified Allergy, Severe, THROAT CLOSES, 06/03/19) meperidine (Verified Allergy, Severe, ANAPHYLAXIS, 05/27/19) Vital Signs Vital Signs Date Time Temp Pulse Resp B/P (MAP) Pulse Ox O2 Delivery O2 Flow Rate FiO2 06/07/19 14:00 97.3 66 20 110/64 (79) 99 Current Medications Current Medications Current Medications Medications (Trade) Dose Ordered Sig/Ky Route PRN Reason Start Time Stop Time Status Last Admin Dose Admin Aspirin (Aspirin Chewable) 81 mg DAILY PO 06/04/19 09:00 06/07/19 08:59 Atorvastatin Calcium (Lipitor) 40 mg DAILY PO 06/04/19 09:00 06/07/19 08:59 Bisacodyl (Dulcolax Suppository) 10 mg DAILYPRN PRN MI CONSTIPATION 06/03/19 16:30 Clopidogrel Bisulfate (PLAVix) 75 mg DAILY PO 06/04/19 09:00 06/07/19 08:59 Docusate Sodium (Colace) 100 mg BID PO 06/03/19 21:00 06/07/19 08:59 Enoxaparin Sodium (Lovenox) 30 mg DAILY SC 06/04/19 09:00 06/07/19 08:59 Famotidine (Pepcid) 20 mg BID PO 06/03/19 21:00 06/07/19 08:59 Gabapentin (Neurontin) 100 mg DAILY PO 06/04/19 09:00 06/07/19 08:59 Home Med (Med Rec Complete!) ASDIRECTED XX 06/03/19 17:30 06/03/19 17:30 DC Levothyroxine Sodium (Synthroid) 50 mcg DAILY@06 PO 06/04/19 06:00 06/07/19 05:51 Lidocaine (Lidoderm Patch) 1 patch DAILY TD 06/03/19 09:00 06/03/19 17:11 DC Lidocaine (Lidoderm Patch) 1 patch QHS TD 06/03/19 21:00 06/06/19 21:13 Lisinopril (Prinivil) 2.5 mg QHS PO 06/03/19 21:00 06/06/19 10:49 DC 06/05/19 20:36 Non-Formulary Medication ( See Comment Field Below ) REMOVE LIDODERM PATCH DAILY@21 XX 06/03/19 21:00 06/03/19 21:00 DC Non-Formulary Medication ( See Comment Field Below ) REMOVE LIDODERM PATCH QAM XX 06/04/19 09:00 06/07/19 09:02 Paroxetine HCl (PAXil) 40 mg QHS PO 06/03/19 21:00 06/06/19 21:13 Senna (Senokot) 1 tab QHS PO 06/03/19 21:00 06/06/19 21:13 Sucralfate (Carafate) 1 gm ACHS PO 06/03/19 17:30 06/07/19 12:07 Terazosin HCl (Hytrin) 2 mg QHS PO 06/06/19 21:00 Terazosin HCl (Hytrin) 5 mg QHS PO 06/03/19 21:00 06/06/19 16:09 DC 06/05/19 20:36 DONOVAN GALLEGOS MD Jun 07, 2019 15:42
[2019-06-07 19:55] VITALS: BP 146/77
[2019-06-07] MEDS: LIDOCAINE 5% (LIDODERM) PATCH TD SCH (21:11)
[2019-06-07] MEDS: TERAZOSIN 1 MG CAP PO SCH (21:11)
[2019-06-07] MEDS: PARoxetine 20 MG TAB PO SCH (21:11)
[2019-06-07] MEDS: SENNA 8.6 MG TAB (SENOKOT) PO SCH (21:11)
[2019-06-08 05:33] VITALS: BP 127/58
[2019-06-08] MEDS: LEVOTHYROXINE 50MCG TABLET (0.05MG) PO SCH (06:27)
[2019-06-08] MEDS: DOCUSATE SODIUM 100 MG CAP PO SCH ×2 (08:19→20:34)
[2019-06-08] MEDS: ASPIRIN 81 MG CHEW TABLET PO SCH (08:19)
[2019-06-08] MEDS: FAMOTIDINE 20 MG TAB PO SCH ×2 (08:19→20:34)
[2019-06-08] MEDS: SUCRALFATE 1 GM TAB PO SCH ×4 (08:19→20:34)
[2019-06-08] MEDS: **NOTE PATIENT COMMENT** MISC XX SCH (08:20)
[2019-06-08] MEDS: CLOPIDOGREL 75 MG TAB PO SCH (08:20)
[2019-06-08] MEDS: ATORVASTATIN 20 MG TAB PO SCH (08:20)
[2019-06-08] MEDS: GABAPENTIN 100 MG CAP PO SCH (08:20)
[2019-06-08] MEDS: ENOXAPARIN 30 MG/0.3 ML SYR (J1650) SC SCH (08:20)
[2019-06-08 14:00] VITALS: BP 131/60
[2019-06-08 20:00] VITALS: BP 122/70
[2019-06-08] MEDS: TOLTERODINE TARTRATE 2 MG LA CAP (DETROL LA) PO SCH (20:33)
[2019-06-08] MEDS: SENNA 8.6 MG TAB (SENOKOT) PO SCH (20:34)
[2019-06-08] MEDS: PARoxetine 20 MG TAB PO SCH (20:34)
[2019-06-08] MEDS: LIDOCAINE 5% (LIDODERM) PATCH TD SCH (20:34)
[2019-06-09 06:17] LABS: HEMATOCRIT 28.7 % (36.0-47.0); HEMOGLOBIN 9.6 g/dl (12.0-15.5); MEAN CORPUSCULAR HEMOGLOBIN 29.4 pg (27.0-33.0); MEAN CORPUSCULAR HGB CONC 33.4 g/dl (32.0-36.5); PLATELET COUNT, AUTOMATED 184 10^3/uL (150-450); RED BLOOD COUNT 3.26 10^6/uL (4.00-5.40); WHITE BLOOD COUNT 4.2 10^3/uL (4.0-10.0)
[2019-06-09] MEDS: SUCRALFATE 1 GM TAB PO SCH ×4 (06:49→22:13)
[2019-06-09] MEDS: LEVOTHYROXINE 50MCG TABLET (0.05MG) PO SCH (06:49)
[2019-06-09] MEDS: **NOTE PATIENT COMMENT** MISC XX SCH (08:48)
[2019-06-09] MEDS: ASPIRIN 81 MG CHEW TABLET PO SCH (08:48)
[2019-06-09] MEDS: GABAPENTIN 100 MG CAP PO SCH (08:48)
[2019-06-09] MEDS: ENOXAPARIN 30 MG/0.3 ML SYR (J1650) SC SCH (08:48)
[2019-06-09] MEDS: ATORVASTATIN 20 MG TAB PO SCH (08:48)
[2019-06-09] MEDS: FAMOTIDINE 20 MG TAB PO SCH ×2 (08:48→22:14)
[2019-06-09] MEDS: TOLTERODINE TARTRATE 2 MG LA CAP (DETROL LA) PO SCH ×2 (08:48→22:14)
[2019-06-09] MEDS: DOCUSATE SODIUM 100 MG CAP PO SCH ×2 (08:48→22:13)
[2019-06-09] MEDS: CLOPIDOGREL 75 MG TAB PO SCH (08:48)
[2019-06-09 14:00] VITALS: BP 118/62
--- NOTE | 2019-06-09 16:39 | IPNPDOC ---
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 REVIEW OF SYSTEMS: The following is a completed review of systems and has been reviewed. Review of systems otherwise unremarkable. PAIN: Patient self reports neck pain EYES: No recent vision changes EARS, NOSE, & THROAT: No throat pain, or dysphagia, or rhinorrhea CARDIOVASCULAR: Denies chest pain or palpitations PULMONARY: Denies shortness of breath GASTROINTESTINAL: Denies constipation/diarrhea GENITOURINARY: +incontinence MUSCULOSKELETAL: neck pain NEUROLOGICAL:lumbar radiculopathy, +bilat leg weakness HEMATOLOGICAL: +easy bruising SKIN:no rash PSYCHIATRIC: Unremarkable All other review of systems found to be negative. PHYSICAL EXAMINATION: VITAL SIGNS: Please see below. GENERAL: Pleasant and cooperative. No acute distress. HEENT: PERRL. Extraocular movements intact. Clear conjunctiva CARDIOVASCULAR: Regular rate and rhythm. No murmurs, rubs, or gallops LUNGS: Clear to auscultation bilaterally. No wheezes. No rhonchi ABDOMEN: Soft, nontender, nondistended. Positive bowel sounds. Normal active bowel sounds NEUROLOGICAL: Alert and oriented times three. Cranial nerves II through XII grossly intact. Sensation grossly intact +hyperrefelxxia throughout, no Hoffmans or babinski EXTREMITIES: 4\5 strength bilateral upper extremities. 4\5 strength right lower extremity. 4/5 strength in left lower extremity. (-) SLR bilat SKIN: scattered ecchymosis . ASSESSMENT:79-year-old F with past medical history of HTN, TIA, HLD who presents status post multiple falls found to have thalamic stroke in setting of severe bilateral lumbar radiculopathy PLAN: 1. PT/OT, strengthen/stretch/maintain ROM bilat UE andLE, advance gait, fall recovery, dynamic balance, ADL safety awareness, ambulating well with RW SL-assess for cognitive deficits, swallow eval-hx of esophageal strictures 2. Neuro: s/p thalamic stroke- c/u ASA, Plavix, and statin for secondary stroke prevention -c/u increased home dose of Paroxetine to 40mg for motor recovery, will switch to evening to see if helps with sleep 3. Ortho: severe bilateral lumbar stenosis contributing to falls, cauda equina ruled out- f/u outpatient ortho 4. Cardio: htn lisinopril held due to drops in BP, medicine consulted to assist- recs appreciated 5. resp: encourage incentive spirometry, monitor for infection 6. Endo: hypothyroidism, c/u Synthroid 7. GI ppx: pepcid BID and sucralfate 8. DVT ppx: Lovenox 9. Pain: gabapentin renally dosed, tylenol 10. : hx of incontinence, will d/c terazosin as this may contributing to incontinence and start Detrol -UA negative 11. Dispo: 06/15/19 to home Allergies Coded Allergies: Penicillins (Verified Allergy, Severe, THROAT CLOSES, 06/03/19) meperidine (Verified Allergy, Severe, ANAPHYLAXIS, 05/27/19) Vital Signs Vital Signs Date Time Temp Pulse Resp B/P (MAP) Pulse Ox O2 Delivery O2 Flow Rate FiO2 06/09/19 14:00 96.7 66 18 118/62 (80) 98 Laboratory Data CBC/BMP Laboratory Tests 06/09/19 05:54 Red Blood Count 3.26 L, Mean Corpuscular Volume 88.0, Mean Corpuscular Hemoglobin 29.4, Mean Corpuscular Hemoglobin Concent 33.4, Red Cell Distribution Width 12.4 Labs 24H Laboratory Tests 2 06/09/19 05:54: Nucleated Red Blood Cells % (auto) 0.0 Current Medications Current Medications Current Medications Medications (Trade) Dose Ordered Sig/Ky Route PRN Reason Start Time Stop Time Status Last Admin Dose Admin Aspirin (Aspirin Chewable) 81 mg DAILY PO 06/04/19 09:00 06/09/19 08:48 Atorvastatin Calcium (Lipitor) 40 mg DAILY PO 06/04/19 09:00 06/09/19 08:48 Bisacodyl (Dulcolax Suppository) 10 mg DAILYPRN PRN MD CONSTIPATION 06/03/19 16:30 Clopidogrel Bisulfate (PLAVix) 75 mg DAILY PO 06/04/19 09:00 06/09/19 08:48 Docusate Sodium (Colace) 100 mg BID PO 06/03/19 21:00 06/09/19 08:48 Enoxaparin Sodium (Lovenox) 30 mg DAILY SC 06/04/19 09:00 06/09/19 08:48 Famotidine (Pepcid) 20 mg BID PO 06/03/19 21:00 06/09/19 08:48 Gabapentin (Neurontin) 100 mg DAILY PO 06/04/19 09:00 06/09/19 08:48 Home Med (Med Rec Complete!) ASDIRECTED XX 06/03/19 17:30 06/03/19 17:30 DC Levothyroxine Sodium (Synthroid) 50 mcg DAILY@06 PO 06/04/19 06:00 06/09/19 06:49 Lidocaine (Lidoderm Patch) 1 patch DAILY TD 06/03/19 09:00 06/03/19 17:11 DC Lidocaine (Lidoderm Patch) 1 patch QHS TD 06/03/19 21:00 06/08/19 20:34 Lisinopril (Prinivil) 2.5 mg QHS PO 06/03/19 21:00 06/06/19 10:49 DC 06/05/19 20:36 Non-Formulary Medication ( See Comment Field Below ) REMOVE LIDODERM PATCH DAILY@21 XX 06/03/19 21:00 06/03/19 21:00 DC Non-Formulary Medication ( See Comment Field Below ) REMOVE LIDODERM PATCH QAM XX 06/04/19 09:00 06/09/19 08:48 Paroxetine HCl (PAXil) 40 mg QHS PO 06/03/19 21:00 06/08/19 20:34 Senna (Senokot) 1 tab QHS PO 06/03/19 21:00 06/08/19 20:34 Sucralfate (Carafate) 1 gm ACHS PO 06/03/19 17:30 06/09/19 11:59 Terazosin HCl (Hytrin) 2 mg QHS PO 06/06/19 21:00 06/08/19 18:05 DC 06/07/19 21:11 Terazosin HCl (Hytrin) 5 mg QHS PO 06/03/19 21:00 06/06/19 16:09 DC 06/05/19 20:36 Tolterodine Tartrate (Detrol La) 2 mg BID PO 06/08/19 21:00 06/09/19 08:48 DONOVAN GALLEGOS MD Jun 09, 2019 16:38
--- NOTE | 2019-06-09 16:40 | IPNPDOC ---
PM&R Progress Note DATE OF SERVICE: Jun 09, 2019 Activity Therapy Specialist Progress Note Subjective: Patient seen in the gym working on ball tossing stating she seltp through the night without having a urinary accident. REVIEW OF SYSTEMS: The following is a completed review of systems and has been reviewed. Review of systems otherwise unremarkable. PAIN: Patient self reports neck pain EYES: No recent vision changes EARS, NOSE, & THROAT: No throat pain, or dysphagia, or rhinorrhea CARDIOVASCULAR: Denies chest pain or palpitations PULMONARY: Denies shortness of breath GASTROINTESTINAL: Denies constipation/diarrhea GENITOURINARY: +incontinence MUSCULOSKELETAL: neck pain NEUROLOGICAL:lumbar radiculopathy, +bilat leg weakness HEMATOLOGICAL: +easy bruising SKIN:no rash PSYCHIATRIC: Unremarkable All other review of systems found to be negative. PHYSICAL EXAMINATION: VITAL SIGNS: Please see below. GENERAL: Pleasant and cooperative. No acute distress. HEENT: PERRL. Extraocular movements intact. Clear conjunctiva CARDIOVASCULAR: Regular rate and rhythm. No murmurs, rubs, or gallops LUNGS: Clear to auscultation bilaterally. No wheezes. No rhonchi ABDOMEN: Soft, nontender, nondistended. Positive bowel sounds. Normal active bowel sounds NEUROLOGICAL: Alert and oriented times three. Cranial nerves II through XII grossly intact. Sensation grossly intact +hyperrefelxxia throughout, no Hoffmans or babinski EXTREMITIES: 4\5 strength bilateral upper extremities. 4\5 strength right lower extremity. 4/5 strength in left lower extremity. (-) SLR bilat SKIN: scattered ecchymosis . ASSESSMENT:79-year-old F with past medical history of HTN, TIA, HLD who presents status post multiple falls found to have thalamic stroke in setting of severe bilateral lumbar radiculopathy PLAN: 1. PT/OT, strengthen/stretch/maintain ROM bilat UE andLE, advance gait, fall recovery, dynamic balance, ADL safety awareness, ambulating well with RW SL-assess for cognitive deficits, swallow eval-hx of esophageal strictures 2. Neuro: s/p thalamic stroke- c/u ASA, Plavix, and statin for secondary stroke prevention -c/u increased home dose of Paroxetine to 40mg for motor recovery, will switch to evening to see if helps with sleep 3. Ortho: severe bilateral lumbar stenosis contributing to falls, cauda equina ruled out- f/u outpatient ortho 4. Cardio: htn lisinopril held due to drops in BP, medicine consulted to assist- recs appreciated 5. resp: encourage incentive spirometry, monitor for infection 6. Endo: hypothyroidism, c/u Synthroid 7. GI ppx: pepcid BID and sucralfate 8. DVT ppx: Lovenox 9. Pain: gabapentin renally dosed, tylenol 10. : hx of incontinence, d/c'd terazosin as this may contributing to incontinence and started Detrol, patient reporting she slept through the night without incontinence -UA negative 11. Dispo: 06/15/19 to home Allergies Coded Allergies: Penicillins (Verified Allergy, Severe, THROAT CLOSES, 06/03/19) meperidine (Verified Allergy, Severe, ANAPHYLAXIS, 05/27/19) Vital Signs Vital Signs Date Time Temp Pulse Resp B/P (MAP) Pulse Ox O2 Delivery O2 Flow Rate FiO2 06/09/19 14:00 96.7 66 18 118/62 (80) 98 Laboratory Data CBC/BMP Laboratory Tests 06/09/19 05:54 Red Blood Count 3.26 L, Mean Corpuscular Volume 88.0, Mean Corpuscular Hemoglobin 29.4, Mean Corpuscular Hemoglobin Concent 33.4, Red Cell Distribution Width 12.4 Labs 24H Laboratory Tests 2 06/09/19 05:54: Nucleated Red Blood Cells % (auto) 0.0 Current Medications Current Medications Current Medications Medications (Trade) Dose Ordered Sig/Ky Route PRN Reason Start Time Stop Time Status Last Admin Dose Admin Aspirin (Aspirin Chewable) 81 mg DAILY PO 06/04/19 09:00 06/09/19 08:48 Atorvastatin Calcium (Lipitor) 40 mg DAILY PO 06/04/19 09:00 06/09/19 08:48 Bisacodyl (Dulcolax Suppository) 10 mg DAILYPRN PRN [place] CONSTIPATION 06/03/19 16:30 Clopidogrel Bisulfate (PLAVix) 75 mg DAILY PO 06/04/19 09:00 06/09/19 08:48 Docusate Sodium (Colace) 100 mg BID PO 06/03/19 21:00 06/09/19 08:48 Enoxaparin Sodium (Lovenox) 30 mg DAILY SC 06/04/19 09:00 06/09/19 08:48 Famotidine (Pepcid) 20 mg BID PO 06/03/19 21:00 06/09/19 08:48 Gabapentin (Neurontin) 100 mg DAILY PO 06/04/19 09:00 06/09/19 08:48 Home Med (Med Rec Complete!) ASDIRECTED XX 06/03/19 17:30 06/03/19 17:30 DC Levothyroxine Sodium (Synthroid) 50 mcg DAILY@06 PO 06/04/19 06:00 06/09/19 06:49 Lidocaine (Lidoderm Patch) 1 patch DAILY TD 06/03/19 09:00 06/03/19 17:11 DC Lidocaine (Lidoderm Patch) 1 patch QHS TD 06/03/19 21:00 06/08/19 20:34 Lisinopril (Prinivil) 2.5 mg QHS PO 06/03/19 21:00 06/06/19 10:49 DC 06/05/19 20:36 Non-Formulary Medication ( See Comment Field Below ) REMOVE LIDODERM PATCH DAILY@21 XX 06/03/19 21:00 06/03/19 21:00 DC Non-Formulary Medication ( See Comment Field Below ) REMOVE LIDODERM PATCH QAM XX 06/04/19 09:00 06/09/19 08:48 Paroxetine HCl (PAXil) 40 mg QHS PO 06/03/19 21:00 06/08/19 20:34 Senna (Senokot) 1 tab QHS PO 06/03/19 21:00 06/08/19 20:34 Sucralfate (Carafate) 1 gm ACHS PO 06/03/19 17:30 06/09/19 11:59 Terazosin HCl (Hytrin) 2 mg QHS PO 06/06/19 21:00 06/08/19 18:05 DC 06/07/19 21:11 Terazosin HCl (Hytrin) 5 mg QHS PO 06/03/19 21:00 06/06/19 16:09 DC 06/05/19 20:36 Tolterodine Tartrate (Detrol La) 2 mg BID PO 06/08/19 21:00 06/09/19 08:48 DONOVAN GALLEGOS MD Jun 09, 2019 16:40
[2019-06-09 20:00] VITALS: BP 151/50
[2019-06-09] MEDS: PARoxetine 20 MG TAB PO SCH (22:14)
[2019-06-09] MEDS: SENNA 8.6 MG TAB (SENOKOT) PO SCH (22:14)
[2019-06-09] MEDS: LIDOCAINE 5% (LIDODERM) PATCH TD SCH (22:15)
[2019-06-10 04:00] VITALS: BP 161/85
[2019-06-10] MEDS: LEVOTHYROXINE 50MCG TABLET (0.05MG) PO SCH (05:45)
[2019-06-10 07:33] LABS: BLOOD UREA NITROGEN 11 MG/DL (7-18); CALCIUM LEVEL 8.8 MG/DL (8.8-10.2); CARBON DIOXIDE LEVEL 28 MEQ/L (21-32); CHLORIDE LEVEL 103 MEQ/L (98-107); CREATININE FOR GFR 0.91 MG/DL (0.55-1.30); GLOMERULAR FILTRATION RATE > 60.0 (>39); GLUCOSE, FASTING 106 MG/DL (70-100); SODIUM LEVEL 137 MEQ/L (136-145)
[2019-06-10] MEDS: **NOTE PATIENT COMMENT** MISC XX SCH (09:00)
[2019-06-10] MEDS: DOCUSATE SODIUM 100 MG CAP PO SCH ×2 (09:51→20:56)
[2019-06-10] MEDS: METOPROLOL TART 25 MG TABLET PO SCH ×3 (09:52→21:01)
[2019-06-10] MEDS: CLOPIDOGREL 75 MG TAB PO SCH (09:52)
[2019-06-10] MEDS: SUCRALFATE 1 GM TAB PO SCH ×4 (09:52→20:56)
[2019-06-10] MEDS: ATORVASTATIN 20 MG TAB PO SCH (09:52)
[2019-06-10] MEDS: ASPIRIN 81 MG CHEW TABLET PO SCH (09:52)
[2019-06-10] MEDS: GABAPENTIN 100 MG CAP PO SCH (09:52)
[2019-06-10] MEDS: TOLTERODINE TARTRATE 2 MG LA CAP (DETROL LA) PO SCH ×2 (09:52→20:56)
[2019-06-10] MEDS: FAMOTIDINE 20 MG TAB PO SCH ×2 (09:52→20:56)
[2019-06-10] MEDS: ENOXAPARIN 30 MG/0.3 ML SYR (J1650) SC SCH (09:53)
--- NOTE | 2019-06-10 12:08 | IPNPDOC ---
PM&R Progress Note DATE OF SERVICE: Jun 10, 2019 Ornamental Machine Operator Progress Note Subjective: Patient seen in her room stating she was up again last night urinating and was encouraged to limit her liquid intake to stop at 4pm and avoid caffeinated be verages to one serving before noon. REVIEW OF SYSTEMS: The following is a completed review of systems and has been reviewed. Review of systems otherwise unremarkable. PAIN: Patient self reports neck pain EYES: No recent vision changes EARS, NOSE, & THROAT: No throat pain, or dysphagia, or rhinorrhea CARDIOVASCULAR: Denies chest pain or palpitations PULMONARY: Denies shortness of breath GASTROINTESTINAL: Denies constipation/diarrhea GENITOURINARY: +incontinence MUSCULOSKELETAL: neck pain NEUROLOGICAL:lumbar radiculopathy, +bilat leg weakness HEMATOLOGICAL: +easy bruising SKIN:no rash PSYCHIATRIC: Unremarkable All other review of systems found to be negative. PHYSICAL EXAMINATION: VITAL SIGNS: Please see below. GENERAL: Pleasant and cooperative. No acute distress. HEENT: PERRL. Extraocular movements intact. Clear conjunctiva CARDIOVASCULAR: Regular rate and rhythm. No murmurs, rubs, or gallops LUNGS: Clear to auscultation bilaterally. No wheezes. No rhonchi ABDOMEN: Soft, nontender, nondistended. Positive bowel sounds. Normal active bowel sounds NEUROLOGICAL: Alert and oriented times three. Cranial nerves II through XII grossly intact. Sensation grossly intact +hyperrefelxxia throughout, no Hoffmans or babinski EXTREMITIES: 4\5 strength bilateral upper extremities. 4\5 strength right lower extremity. 4/5 strength in left lower extremity. (-) SLR bilat SKIN: scattered ecchymosis . ASSESSMENT:79-year-old F with past medical history of HTN, TIA, HLD who presents status post multiple falls found to have thalamic stroke in setting of severe bilateral lumbar radiculopathy PLAN: 1. PT/OT, strengthen/stretch/maintain ROM bilat UE andLE, advance gait, fall recovery, dynamic balance, ADL safety awareness, ambulating well with RW SL-assess for cognitive deficits, swallow eval-hx of esophageal strictures, MBS performed on admission without notable pathology 2. Neuro: s/p thalamic stroke- c/u ASA, Plavix, and statin for secondary stroke prevention -c/u increased home dose of Paroxetine to 40mg for motor recovery, switched to evening to see if helps with sleep 3. Ortho: severe bilateral lumbar stenosis contributing to falls, cauda equina ruled out- f/u outpatient ortho 4. Cardio: htn with increasing BPs since discontinuing terazosin, will add metoprolol and monitor, patient reporting she did not like the way she felt on lisinopril - medicine consulted to assist-recs appreciated 5. resp: encourage incentive spirometry, monitor for infection 6. Endo: hypothyroidism, c/u Synthroid 7. GI ppx: pepcid BID and sucralfate 8. DVT ppx: Lovenox 9. Pain: gabapentin renally dosed, tylenol 10. : hx of incontinence, d/c'd terazosin as this may contributing to incontinence and started Detrol, patient encouraged to stop fluid intake at 4pm and limit herself to one caffeinated beverage a day to be had before noon -UA negative 11. Dispo: 06/15/19 to home Allergies Coded Allergies: Penicillins (Verified Allergy, Severe, THROAT CLOSES, 06/03/19) meperidine (Verified Allergy, Severe, ANAPHYLAXIS, 05/27/19) Vital Signs Vital Signs Date Time Temp Pulse Resp B/P (MAP) Pulse Ox O2 Delivery O2 Flow Rate FiO2 06/10/19 09:52 61 161/85 06/10/19 04:00 98.5 17 97 Laboratory Data CBC/BMP Laboratory Tests 06/10/19 06:47 Calcium Level 8.8 Labs 24H Laboratory Tests 2 06/10/19 06:47: Anion Gap 6L, Glomerular Filtration Rate > 60.0, Blood Urea Nitrogen 11, Creatinine 0.91, Sodium Level 137, Potassium Level 4.0, Chloride Level 103, Carbon Dioxide Level 28, Calcium Level 8.8 Current Medications Current Medications Current Medications Medications (Trade) Dose Ordered Sig/Ky Route PRN Reason Start Time Stop Time Status Last Admin Dose Admin Aspirin (Aspirin Chewable) 81 mg DAILY PO 06/04/19 09:00 06/10/19 09:52 Atorvastatin Calcium (Lipitor) 40 mg DAILY PO 06/04/19 09:00 06/10/19 09:52 Bisacodyl (Dulcolax Suppository) 10 mg DAILYPRN PRN [place] CONSTIPATION 06/03/19 16:30 Clopidogrel Bisulfate (PLAVix) 75 mg DAILY PO 06/04/19 09:00 06/10/19 09:52 Docusate Sodium (Colace) 100 mg BID PO 06/03/19 21:00 06/10/19 09:51 Enoxaparin Sodium (Lovenox) 30 mg DAILY SC 06/04/19 09:00 06/10/19 09:53 Famotidine (Pepcid) 20 mg BID PO 06/03/19 21:00 06/10/19 09:52 Gabapentin (Neurontin) 100 mg DAILY PO 06/04/19 09:00 06/10/19 09:52 Home Med (Med Rec Complete!) ASDIRECTED XX 06/03/19 17:30 06/03/19 17:30 DC Levothyroxine Sodium (Synthroid) 50 mcg DAILY@06 PO 06/04/19 06:00 06/10/19 05:45 Lidocaine (Lidoderm Patch) 1 patch DAILY TD 06/03/19 09:00 06/03/19 17:11 DC Lidocaine (Lidoderm Patch) 1 patch QHS TD 06/03/19 21:00 06/09/19 22:15 Lisinopril (Prinivil) 2.5 mg QHS PO 06/03/19 21:00 06/06/19 10:49 DC 06/05/19 20:36 Metoprolol Tartrate (Lopressor) 25 mg Q8H PO 06/10/19 06:00 06/10/19 09:52 Non-Formulary Medication ( See Comment Field Below ) REMOVE LIDODERM PATCH DAILY@21 XX 06/03/19 21:00 06/03/19 21:00 DC Non-Formulary Medication ( See Comment Field Below ) REMOVE LIDODERM PATCH QAM XX 06/04/19 09:00 06/10/19 09:00 Paroxetine HCl (PAXil) 40 mg QHS PO 06/03/19 21:00 06/09/19 22:14 Senna (Senokot) 1 tab QHS PO 06/03/19 21:00 06/09/19 22:14 Sucralfate (Carafate) 1 gm ACHS PO 06/03/19 17:30 06/10/19 09:52 Terazosin HCl (Hytrin) 2 mg QHS PO 06/06/19 21:00 06/08/19 18:05 DC 06/07/19 21:11 Terazosin HCl (Hytrin) 5 mg QHS PO 06/03/19 21:00 06/06/19 16:09 DC 06/05/19 20:36 Tolterodine Tartrate (Detrol La) 2 mg BID PO 06/08/19 21:00 06/10/19 09:52 DONOVAN GALLEGOS MD Jun 10, 2019 12:08
[2019-06-10 13:22] VITALS: BP 142/74
[2019-06-10 14:00] VITALS: BP 122/68
[2019-06-10 20:00] VITALS: BP 160/74
[2019-06-10] MEDS: PARoxetine 20 MG TAB PO SCH (20:56)
[2019-06-10] MEDS: traZODone 25MG PER 1/2 TABLET PO PRN (20:56)
[2019-06-10] MEDS: SENNA 8.6 MG TAB (SENOKOT) PO SCH (20:56)
[2019-06-10] MEDS: LIDOCAINE 5% (LIDODERM) PATCH TD SCH (20:58)
[2019-06-11] MEDS: LEVOTHYROXINE 50MCG TABLET (0.05MG) PO SCH (05:55)
[2019-06-11] MEDS: METOPROLOL TART 25 MG TABLET PO SCH ×3 (05:55→21:19)
[2019-06-11 06:00] VITALS: BP 134/69
[2019-06-11] MEDS: SUCRALFATE 1 GM TAB PO SCH ×4 (09:36→21:19)
[2019-06-11] MEDS: ASPIRIN 81 MG CHEW TABLET PO SCH (09:36)
[2019-06-11] MEDS: ATORVASTATIN 20 MG TAB PO SCH (09:36)
[2019-06-11] MEDS: DOCUSATE SODIUM 100 MG CAP PO SCH ×2 (09:36→21:18)
[2019-06-11] MEDS: ENOXAPARIN 30 MG/0.3 ML SYR (J1650) SC SCH (09:37)
[2019-06-11] MEDS: TOLTERODINE TARTRATE 2 MG LA CAP (DETROL LA) PO SCH ×2 (09:37→09:42)
[2019-06-11] MEDS: FAMOTIDINE 20 MG TAB PO SCH ×2 (09:37→21:18)
[2019-06-11] MEDS: CLOPIDOGREL 75 MG TAB PO SCH (09:37)
[2019-06-11] MEDS: **NOTE PATIENT COMMENT** MISC XX SCH (09:43)
[2019-06-11 14:50] VITALS: BP 123/62
[2019-06-11 20:00] VITALS: BP 193/91
[2019-06-11 20:40] VITALS: BP 180/90
[2019-06-11] MEDS: traZODone 25MG PER 1/2 TABLET PO PRN (21:18)
[2019-06-11] MEDS: PARoxetine 20 MG TAB PO SCH (21:19)
[2019-06-11] MEDS: SENNA 8.6 MG TAB (SENOKOT) PO SCH (21:19)
[2019-06-11] MEDS: LIDOCAINE 5% (LIDODERM) PATCH TD SCH (21:20)
[2019-06-11] MEDS: amLODIPine 5 MG TAB PO SCH (22:38)
[2019-06-12 04:00] VITALS: BP 126/69
[2019-06-12] MEDS: LEVOTHYROXINE 50MCG TABLET (0.05MG) PO SCH (06:10)
[2019-06-12] MEDS: METOPROLOL TART 25 MG TABLET PO SCH ×3 (06:11→21:24)
[2019-06-12] MEDS: SUCRALFATE 1 GM TAB PO SCH ×4 (06:52→21:22)
[2019-06-12 07:09] LABS: HEMATOCRIT 29.7 % (36.0-47.0); MEAN CORPUSCULAR HEMOGLOBIN 29.4 pg (27.0-33.0); MEAN CORPUSCULAR HGB CONC 33.7 g/dl (32.0-36.5); MEAN CORPUSCULAR VOLUME 87.4 fl (80.0-96.0); PLATELET COUNT, AUTOMATED 212 10^3/uL (150-450); WHITE BLOOD COUNT 4.6 10^3/uL (4.0-10.0)
[2019-06-12] MEDS: CLOPIDOGREL 75 MG TAB PO SCH (09:02)
[2019-06-12] MEDS: DOCUSATE SODIUM 100 MG CAP PO SCH ×2 (09:02→21:22)
[2019-06-12] MEDS: ATORVASTATIN 20 MG TAB PO SCH (09:02)
[2019-06-12] MEDS: **NOTE PATIENT COMMENT** MISC XX SCH (09:03)
[2019-06-12] MEDS: ASPIRIN 81 MG CHEW TABLET PO SCH (09:03)
[2019-06-12] MEDS: FAMOTIDINE 20 MG TAB PO SCH ×2 (09:03→21:22)
[2019-06-12] MEDS: ENOXAPARIN 30 MG/0.3 ML SYR (J1650) SC SCH (09:03)
[2019-06-12] MEDS: amLODIPine 5 MG TAB PO SCH (09:03)
[2019-06-12] MEDS: TOLTERODINE TARTRATE 2 MG LA CAP (DETROL LA) PO SCH ×2 (09:03→21:22)
[2019-06-12 14:00] VITALS: BP 105/60
[2019-06-12 20:00] VITALS: BP 107/55
[2019-06-12] MEDS: PARoxetine 20 MG TAB PO SCH (21:22)
[2019-06-12] MEDS: SENNA 8.6 MG TAB (SENOKOT) PO SCH (21:22)
[2019-06-12] MEDS: LIDOCAINE 5% (LIDODERM) PATCH TD SCH (21:23)
[2019-06-13 04:00] VITALS: BP 139/71
[2019-06-13] MEDS: METOPROLOL TART 25 MG TABLET PO SCH ×3 (05:24→21:24)
[2019-06-13] MEDS: LEVOTHYROXINE 50MCG TABLET (0.05MG) PO SCH (05:24)
[2019-06-13] MEDS: SUCRALFATE 1 GM TAB PO SCH ×4 (06:31→21:25)
[2019-06-13] MEDS: ENOXAPARIN 30 MG/0.3 ML SYR (J1650) SC SCH (08:54)
[2019-06-13] MEDS: DOCUSATE SODIUM 100 MG CAP PO SCH ×2 (08:54→21:25)
[2019-06-13] MEDS: ASPIRIN 81 MG CHEW TABLET PO SCH (08:54)
[2019-06-13] MEDS: TOLTERODINE TARTRATE 2 MG LA CAP (DETROL LA) PO SCH ×2 (08:54→21:25)
[2019-06-13] MEDS: FAMOTIDINE 20 MG TAB PO SCH ×2 (08:54→21:25)
[2019-06-13] MEDS: CLOPIDOGREL 75 MG TAB PO SCH (08:54)
[2019-06-13] MEDS: ATORVASTATIN 20 MG TAB PO SCH (08:55)
[2019-06-13] MEDS: amLODIPine 5 MG TAB PO SCH (08:55)
[2019-06-13] MEDS: **NOTE PATIENT COMMENT** MISC XX SCH (08:56)
--- NOTE | 2019-06-13 13:29 | IPNPDOC ---
Subjective Date Seen The patient was seen on 06/13/19. Subjective Chief Complaint/HPI Patient lying in bed comfortably, offers no complaints. No chest pain, shortness of breath, etc. General: Denies: ROS Unobtainable, Chills, Night Sweats, Fatigue, Malaise, Normal Appetite, Other Symptoms Skin: Denies: Rash, Lesions, Jaundice, Bruising, Itching, Dry, Breakdown, Nail Changes, Other Pulmonary: Denies: Dyspnea, Cough, Pleuritic Chest Pain, Other Symptoms Cardiovascular: Denies: Chest Pain, Palpitations, Orthopnea, Paroxysmal Noc. Dyspnea, Edema, Lt Headedness, Other Symptoms Gastrointestinal: Denies: Nausea, Vomiting, Abdominal Pain, Diarrhea, Constipation, Melena, Hematochezia, Other Symptoms Musculoskeletal: Denies: Neck Pain, Back Pain, Shoulder Pain, Arm Pain, Hand Pain, Leg Pain, Foot Pain, Joint Pain, Muscle Pain, Spasms, Other Symptoms Neurological: Denies: Weakness, Numbness, Incoordination, Change in speech, C onfusion, Seizures, Other Symptoms Objective Physical Examination Eye Exam: Negative: Sclera icteric Neck Exam: Positive: Supple Chest Exam: Positive: Clear to auscultation, Normal air movement Heart Exam: Positive: Rate Normal, Regular Rhythm, Normal S1, Normal S2 Abdomen Exam: Positive: Normal bowel sounds, Soft Extremity Exam: Positive: Normal pulses Skin Exam: Positive: Nl turgor and temperature Neuro Exam: Positive: Strength at 5/5 X4 ext, Normal Tone, Sensation Intact Assessment /Plan Problems (1) Acute CVA (cerebrovascular accident) Status: Acute Problem Text: Acute/subacute left subthalamic stroke , echocardiogram showed no atrial or ventricular thrombus , No carotid artery disease was found Continue aspirin, Plavix, statin and gabapentin Physical therapy and occupation therapy in progress (2) Spinal stenosis Problem Text: Patient is presently on gabapentin and physical therapy At the present care (3) HTN (hypertension) Status: Chronic Problem Text: Blood pressure under well control Continue amlodipine and metoprolol (4) Hypothyroid Status: Chronic Problem Text: Continue present meds Plan/VTE VTE Prophylaxis Ordered?: Yes VS, I&O, 24H, Fishbone Vital Signs/I&O Vital Signs Date Time Temp Pulse Resp B/P (MAP) Pulse Ox O2 Delivery O2 Flow Rate FiO2 06/13/19 08:55 56 139/71 06/13/19 04:00 97.9 18 98 I&O- Last 24 Hours up to 6 AM 06/13/19 06:00 Intake Total 625 ml Output Total 0 ml Balance 625 ml SAUL CATALAN MD Jun 13, 2019 13:29
[2019-06-13 14:00] VITALS: BP 101/69
[2019-06-13 20:00] VITALS: BP 109/60
[2019-06-13] MEDS: PARoxetine 20 MG TAB PO SCH (21:25)
[2019-06-13] MEDS: traZODone 25MG PER 1/2 TABLET PO PRN (21:25)
[2019-06-13] MEDS: SENNA 8.6 MG TAB (SENOKOT) PO SCH (21:25)
[2019-06-13] MEDS: LIDOCAINE 5% (LIDODERM) PATCH TD SCH (21:25)
[2019-06-14 06:00] VITALS: BP 132/69
[2019-06-14] MEDS: LEVOTHYROXINE 50MCG TABLET (0.05MG) PO SCH (06:29)
[2019-06-14] MEDS: METOPROLOL TART 25 MG TABLET PO SCH ×3 (06:30→22:22)
[2019-06-14 08:00] VITALS: BP 108/62
[2019-06-14] MEDS: FAMOTIDINE 20 MG TAB PO SCH ×2 (09:58→22:20)
[2019-06-14] MEDS: CLOPIDOGREL 75 MG TAB PO SCH (09:58)
[2019-06-14] MEDS: ASPIRIN 81 MG CHEW TABLET PO SCH (09:58)
[2019-06-14] MEDS: DOCUSATE SODIUM 100 MG CAP PO SCH ×2 (09:58→22:20)
[2019-06-14] MEDS: ENOXAPARIN 30 MG/0.3 ML SYR (J1650) SC SCH (09:58)
[2019-06-14] MEDS: TOLTERODINE TARTRATE 2 MG LA CAP (DETROL LA) PO SCH ×2 (09:58→22:20)
[2019-06-14] MEDS: ATORVASTATIN 20 MG TAB PO SCH (09:59)
[2019-06-14] MEDS: SUCRALFATE 1 GM TAB PO SCH ×4 (09:59→22:20)
[2019-06-14] MEDS: amLODIPine 5 MG TAB PO SCH (09:59)
[2019-06-14] MEDS: **NOTE PATIENT COMMENT** MISC XX SCH (09:59)
[2019-06-14 14:00] VITALS: BP 108/62
--- NOTE | 2019-06-14 15:03 | IPNPDOC ---
PM&R Progress Note DATE OF SERVICE: Jun 11, 2019 Automotive Service Technician Progress Note Subjective: Patient seen in her room stating she does not remember propelling her wheelchair in the hallways last night and recognizes she sundowns. REVIEW OF SYSTEMS: The following is a completed review of systems and has been reviewed. Review of systems otherwise unremarkable. PAIN: Patient self reports neck pain EYES: No recent vision changes EARS, NOSE, & THROAT: No throat pain, or dysphagia, or rhinorrhea CARDIOVASCULAR: Denies chest pain or palpitations PULMONARY: Denies shortness of breath GASTROINTESTINAL: Denies constipation/diarrhea GENITOURINARY: +incontinence MUSCULOSKELETAL: neck pain NEUROLOGICAL:lumbar radiculopathy, +bilat leg weakness HEMATOLOGICAL: +easy bruising SKIN:no rash PSYCHIATRIC: Unremarkable All other review of systems found to be negative. PHYSICAL EXAMINATION: VITAL SIGNS: Please see below. GENERAL: Pleasant and cooperative. No acute distress. HEENT: PERRL. Extraocular movements intact. Clear conjunctiva CARDIOVASCULAR: Regular rate and rhythm. No murmurs, rubs, or gallops LUNGS: Clear to auscultation bilaterally. No wheezes. No rhonchi ABDOMEN: Soft, nontender, nondistended. Positive bowel sounds. Normal active bowel sounds NEUROLOGICAL: Alert and oriented times three. Cranial nerves II through XII grossly intact. Sensation grossly intact +hyperrefelxxia throughout, no Hoffmans or babinski EXTREMITIES: 4\5 strength bilateral upper extremities. 4\5 strength right lower extremity. 4/5 strength in left lower extremity. (-) SLR bilat SKIN: scattered ecchymosis ASSESSMENT:79-year-old F with past medical history of HTN, TIA, HLD who presents status post multiple falls found to have thalamic stroke in setting of severe bilateral lumbar radiculopathy PLAN: 1. PT/OT, strengthen/stretch/maintain ROM bilat UE andLE, advance gait, fall recovery, dynamic balance, ADL safety awareness, ambulating well with RW SL-assess for cognitive deficits, swallow eval-hx of esophageal strictures, MBS performed on admission without notable pathology 2. Neuro: s/p thalamic stroke- c/u ASA, Plavix, and statin for secondary stroke prevention -c/u increased home dose of Paroxetine to 40mg for motor recovery, switched to evening to see if helps with sleep -delirium worse at night, possibly due to sundowning due to hospital, however suspect patient has dementia and will need neurology follow-up 3. Ortho: severe bilateral lumbar stenosis contributing to falls, cauda equina ruled out- f/u outpatient ortho 4. Cardio: htn with increasing BPs since discontinuing terazosin, will add metoprolol and monitor, patient reporting she did not like the way she felt on lisinopril - medicine consulted to assist-recs appreciated 5. resp: encourage incentive spirometry, monitor for infection 6. Endo: hypothyroidism, c/u Synthroid 7. GI ppx: pepcid BID and sucralfate 8. DVT ppx: Lovenox 9. Pain: gabapentin renally dosed, tylenol 10. : hx of incontinence, d/c'd terazosin as this may contributing to incontinence and started Detrol, patient encouraged to stop fluid intake at 4pm and limit herself to one caffeinated beverage a day to be had before noon -UA negative 11. Dispo: 06/15/19 to home pending caregiver training Allergies Coded Allergies: Penicillins (Verified Allergy, Severe, THROAT CLOSES, 06/03/19) meperidine (Verified Allergy, Severe, ANAPHYLAXIS, 05/27/19) Vital Signs Vital Signs Date Time Temp Pulse Resp B/P (MAP) Pulse Ox O2 Delivery O2 Flow Rate FiO2 06/14/19 14:00 62 108/62 06/14/19 06:00 98.0 18 97 Current Medications Current Medications Current Medications Medications (Trade) Dose Ordered Sig/Ky Route PRN Reason Start Time Stop Time Status Last Admin Dose Admin Amlodipine Besylate (Norvasc) 5 mg DAILY PO 06/11/19 22:10 06/14/19 09:59 Aspirin (Aspirin Chewable) 81 mg DAILY PO 06/04/19 09:00 06/14/19 09:58 Atorvastatin Calcium (Lipitor) 40 mg DAILY PO 06/04/19 09:00 06/14/19 09:59 Bisacodyl (Dulcolax Suppository) 10 mg DAILYPRN PRN [place] CONSTIPATION 06/03/19 16:30 Clopidogrel Bisulfate (PLAVix) 75 mg DAILY PO 06/04/19 09:00 06/14/19 09:58 Docusate Sodium (Colace) 100 mg BID PO 06/03/19 21:00 06/14/19 09:58 Enoxaparin Sodium (Lovenox) 30 mg DAILY SC 06/04/19 09:00 06/14/19 09:58 Famotidine (Pepcid) 20 mg BID PO 06/03/19 21:00 06/14/19 09:58 Gabapentin (Neurontin) 100 mg DAILY PO 06/04/19 09:00 06/10/19 20:03 DC 06/10/19 09:52 Home Med (Med Rec Complete!) ASDIRECTED XX 06/03/19 17:30 06/03/19 17:30 DC Levothyroxine Sodium (Synthroid) 50 mcg DAILY@06 PO 06/04/19 06:00 06/14/19 06:29 Lidocaine (Lidoderm Patch) 1 patch DAILY TD 06/03/19 09:00 06/03/19 17:11 DC Lidocaine (Lidoderm Patch) 1 patch QHS TD 06/03/19 21:00 06/13/19 21:25 Lisinopril (Prinivil) 2.5 mg QHS PO 06/03/19 21:00 06/06/19 10:49 DC 06/05/19 20:36 Metoprolol Tartrate (Lopressor) 25 mg Q8H PO 06/10/19 06:00 06/14/19 06:30 Non-Formulary Medication ( See Comment Field Below ) REMOVE LIDODERM PATCH DAILY@21 XX 06/03/19 21:00 06/03/19 21:00 DC Non-Formulary Medication ( See Comment Field Below ) REMOVE LIDODERM PATCH QAM XX 06/04/19 09:00 06/14/19 09:59 Paroxetine HCl (PAXil) 40 mg QHS PO 06/03/19 21:00 06/13/19 21:25 Senna (Senokot) 1 tab QHS PO 06/03/19 21:00 06/13/19 21:25 Sucralfate (Carafate) 1 gm ACHS PO 06/03/19 17:30 06/14/19 11:54 Terazosin HCl (Hytrin) 2 mg QHS PO 06/06/19 21:00 06/08/19 18:05 DC 06/07/19 21:11 Terazosin HCl (Hytrin) 5 mg QHS PO 06/03/19 21:00 06/06/19 16:09 DC 06/05/19 20:36 Tolterodine Tartrate (Detrol La) 2 mg BID PO 06/08/19 21:00 06/14/19 09:58 Trazodone HCl (Desyrel) 25 mg QHSP PRN PO INSOMNIA 06/10/19 20:15 06/13/19 21:25 DONOVAN GALLEGOS MD Jun 14, 2019 15:03
--- NOTE | 2019-06-14 15:03 | IPNPDOC ---
PM&R Progress Note DATE OF SERVICE: Jun 14, 2019 Editorial Assistant Progress Note Subjective: Patient seen in her room stating she is feeling ok. She still reports feeling a little confused. REVIEW OF SYSTEMS: The following is a completed review of systems and has been reviewed. Review of systems otherwise unremarkable. PAIN: Patient self reports neck pain EYES: No recent vision changes EARS, NOSE, & THROAT: No throat pain, or dysphagia, or rhinorrhea CARDIOVASCULAR: Denies chest pain or palpitations PULMONARY: Denies shortness of breath GASTROINTESTINAL: Denies constipation/diarrhea GENITOURINARY: +incontinence MUSCULOSKELETAL: neck pain NEUROLOGICAL:lumbar radiculopathy, +bilat leg weakness HEMATOLOGICAL: +easy bruising SKIN:no rash PSYCHIATRIC: Unremarkable All other review of systems found to be negative. PHYSICAL EXAMINATION: VITAL SIGNS: Please see below. GENERAL: Pleasant and cooperative. No acute distress. HEENT: PERRL. Extraocular movements intact. Clear conjunctiva CARDIOVASCULAR: Regular rate and rhythm. No murmurs, rubs, or gallops LUNGS: Clear to auscultation bilaterally. No wheezes. No rhonchi ABDOMEN: Soft, nontender, nondistended. Positive bowel sounds. Normal active bowel sounds NEUROLOGICAL: Alert and oriented times three. Cranial nerves II through XII grossly intact. Sensation grossly intact +hyperrefelxxia throughout, no Hoffmans or babinski EXTREMITIES: 4\5 strength bilateral upper extremities. 4\5 strength right lower extremity. 4/5 strength in left lower extremity. (-) SLR bilat SKIN: scattered ecchymosis ASSESSMENT:79-year-old F with past medical history of HTN, TIA, HLD who presents status post multiple falls found to have thalamic stroke in setting of severe bilateral lumbar radiculopathy PLAN: 1. PT/OT, strengthen/stretch/maintain ROM bilat UE andLE, advance gait, fall recovery, dynamic balance, ADL safety awareness, ambulating well with RW SL-assess for cognitive deficits, swallow eval-hx of esophageal strictures, MBS performed on admission without notable pathology 2. Neuro: s/p thalamic stroke- c/u ASA, Plavix, and statin for secondary stroke prevention -had tried increasing home dose of Paroxetine to 40mg for motor recovery, however will return to original dose of 20mg as does not seem to be assisting with dementia/pseudodementia features -delirium worse at night, possibly due to ing due to hospital, however suspect patient has dementia and will need neurology follow-up -will start donepezil 5 mg daily 3. Ortho: severe bilateral lumbar stenosis contributing to falls, cauda equina ruled out- f/u outpatient ortho 4. Cardio: htn with increasing BPs since discontinuing terazosin, will add metoprolol and monitor, patient reporting she did not like the way she felt on lisinopril - medicine consulted to assist-recs appreciated 5. resp: encourage incentive spirometry, monitor for infection 6. Endo: hypothyroidism, c/u Synthroid 7. GI ppx: pepcid BID and sucralfate 8. DVT ppx: Lovenox 9. Pain: gabapentin renally dosed, tylenol 10. : hx of incontinence, d/c'd terazosin as this may contributing to incontinence and started Detrol, patient encouraged to stop fluid intake at 4pm and limit herself to one caffeinated beverage a day to be had before noon -UA negative 11. Dispo: 06/15/19 to home pending caregiver training, will need 24-7 care Allergies Coded Allergies: Penicillins (Verified Allergy, Severe, THROAT CLOSES, 06/03/19) meperidine (Verified Allergy, Severe, ANAPHYLAXIS, 05/27/19) Vital Signs Vital Signs Date Time Temp Pulse Resp B/P (MAP) Pulse Ox O2 Delivery O2 Flow Rate FiO2 06/14/19 14:00 62 108/62 06/14/19 06:00 98.0 18 97 Current Medications Current Medications Current Medications Medications (Trade) Dose Ordered Sig/Ky Route PRN Reason Start Time Stop Time Status Last Admin Dose Admin Amlodipine Besylate (Norvasc) 5 mg DAILY PO 06/11/19 22:10 06/14/19 09:59 Aspirin (Aspirin Chewable) 81 mg DAILY PO 06/04/19 09:00 06/14/19 09:58 Atorvastatin Calcium (Lipitor) 40 mg DAILY PO 06/04/19 09:00 06/14/19 09:59 Bisacodyl (Dulcolax Suppository) 10 mg DAILYPRN PRN [place] CONSTIPATION 06/03/19 16:30 Clopidogrel Bisulfate (PLAVix) 75 mg DAILY PO 06/04/19 09:00 06/14/19 09:58 Docusate Sodium (Colace) 100 mg BID PO 06/03/19 21:00 06/14/19 09:58 Enoxaparin Sodium (Lovenox) 30 mg DAILY SC 06/04/19 09:00 06/14/19 09:58 Famotidine (Pepcid) 20 mg BID PO 06/03/19 21:00 06/14/19 09:58 Gabapentin (Neurontin) 100 mg DAILY PO 06/04/19 09:00 06/10/19 20:03 DC 06/10/19 09:52 Home Med (Med Rec Complete!) ASDIRECTED XX 06/03/19 17:30 06/03/19 17:30 DC Levothyroxine Sodium (Synthroid) 50 mcg DAILY@06 PO 06/04/19 06:00 06/14/19 06:29 Lidocaine (Lidoderm Patch) 1 patch DAILY TD 06/03/19 09:00 06/03/19 17:11 DC Lidocaine (Lidoderm Patch) 1 patch QHS TD 06/03/19 21:00 06/13/19 21:25 Lisinopril (Prinivil) 2.5 mg QHS PO 06/03/19 21:00 06/06/19 10:49 DC 06/05/19 20:36 Metoprolol Tartrate (Lopressor) 25 mg Q8H PO 06/10/19 06:00 06/14/19 06:30 Non-Formulary Medication ( See Comment Field Below ) REMOVE LIDODERM PATCH DAILY@21 XX 06/03/19 21:00 06/03/19 21:00 DC Non-Formulary Medication ( See Comment Field Below ) REMOVE LIDODERM PATCH QAM XX 06/04/19 09:00 06/14/19 09:59 Paroxetine HCl (PAXil) 40 mg QHS PO 06/03/19 21:00 06/13/19 21:25 Senna (Senokot) 1 tab QHS PO 06/03/19 21:00 06/13/19 21:25 Sucralfate (Carafate) 1 gm ACHS PO 06/03/19 17:30 06/14/19 11:54 Terazosin HCl (Hytrin) 2 mg QHS PO 06/06/19 21:00 06/08/19 18:05 DC 06/07/19 21:11 Terazosin HCl (Hytrin) 5 mg QHS PO 06/03/19 21:00 06/06/19 16:09 DC 06/05/19 20:36 Tolterodine Tartrate (Detrol La) 2 mg BID PO 06/08/19 21:00 06/14/19 09:58 Trazodone HCl (Desyrel) 25 mg QHSP PRN PO INSOMNIA 06/10/19 20:15 06/13/19 21:25 DONOVAN GALLEGOS MD Jun 14, 2019 15:03
[2019-06-14] MEDS: DONEPEZIL 5 MG TAB PO SCH (17:09)
[2019-06-14 20:00] VITALS: BP 123/62
[2019-06-14] MEDS: traZODone 25MG PER 1/2 TABLET PO SCH (22:20)
[2019-06-14] MEDS: PARoxetine 20 MG TAB PO SCH (22:20)
[2019-06-14] MEDS: SENNA 8.6 MG TAB (SENOKOT) PO SCH (22:20)
[2019-06-15] MEDS: LEVOTHYROXINE 50MCG TABLET (0.05MG) PO SCH (06:00)
[2019-06-15] MEDS: METOPROLOL TART 25 MG TABLET PO SCH ×3 (06:00→22:00)
[2019-06-15 06:06] VITALS: BP 132/69
[2019-06-15] MEDS: SUCRALFATE 1 GM TAB PO SCH ×2 (07:30→12:00)
[2019-06-15] MEDS: DOCUSATE SODIUM 100 MG CAP PO SCH ×2 (09:00→20:33)
[2019-06-15] MEDS: ASPIRIN 81 MG CHEW TABLET PO SCH (10:46)
[2019-06-15] MEDS: DONEPEZIL 5 MG TAB PO SCH (10:46)
[2019-06-15] MEDS: TOLTERODINE TARTRATE 2 MG LA CAP (DETROL LA) PO SCH ×2 (10:46→20:33)
[2019-06-15] MEDS: CLOPIDOGREL 75 MG TAB PO SCH (10:46)
[2019-06-15] MEDS: ATORVASTATIN 20 MG TAB PO SCH (10:46)
[2019-06-15] MEDS: amLODIPine 5 MG TAB PO SCH (10:46)
[2019-06-15] MEDS: FAMOTIDINE 20 MG TAB PO SCH ×2 (10:47→20:33)
[2019-06-15] MEDS: ENOXAPARIN 30 MG/0.3 ML SYR (J1650) SC SCH (10:47)
[2019-06-15 11:02] LABS: HEMATOCRIT 33.6 % (36.0-47.0); HEMOGLOBIN 11.1 g/dl (12.0-15.5); MEAN CORPUSCULAR HEMOGLOBIN 29.9 pg (27.0-33.0); MEAN CORPUSCULAR VOLUME 90.6 fl (80.0-96.0); PLATELET COUNT, AUTOMATED 230 10^3/uL (150-450); RED BLOOD COUNT 3.71 10^6/uL (4.00-5.40); WHITE BLOOD COUNT 4.4 10^3/uL (4.0-10.0)
[2019-06-15 14:00] VITALS: BP 144/82
[2019-06-15] MEDS: SUCRALFATE SUSP 1GM/10ML UD PO SCH ×2 (17:30→20:33)
[2019-06-15 20:00] VITALS: BP 122/59
[2019-06-15] MEDS: PARoxetine 20 MG TAB PO SCH (20:33)
[2019-06-15] MEDS: SENNA 8.6 MG TAB (SENOKOT) PO SCH (20:33)
[2019-06-15] MEDS: traZODone 25MG PER 1/2 TABLET PO SCH (20:33)
[2019-06-16 06:00] VITALS: BP 128/63
[2019-06-16] MEDS: METOPROLOL TART 25 MG TABLET PO SCH ×3 (06:24→21:53)
[2019-06-16] MEDS: LEVOTHYROXINE 50MCG TABLET (0.05MG) PO SCH (06:24)
[2019-06-16] MEDS: ATORVASTATIN 20 MG TAB PO SCH (08:25)
[2019-06-16] MEDS: TOLTERODINE TARTRATE 2 MG LA CAP (DETROL LA) PO SCH ×2 (08:25→21:53)
[2019-06-16] MEDS: SUCRALFATE SUSP 1GM/10ML UD PO SCH ×4 (08:25→21:53)
[2019-06-16] MEDS: ASPIRIN 81 MG CHEW TABLET PO SCH (08:25)
[2019-06-16] MEDS: DONEPEZIL 5 MG TAB PO SCH (08:26)
[2019-06-16] MEDS: DOCUSATE SODIUM 100 MG CAP PO SCH ×2 (08:26→21:53)
[2019-06-16] MEDS: FAMOTIDINE 20 MG TAB PO SCH ×2 (08:26→21:54)
[2019-06-16] MEDS: ENOXAPARIN 30 MG/0.3 ML SYR (J1650) SC SCH (08:26)
[2019-06-16] MEDS: CLOPIDOGREL 75 MG TAB PO SCH (08:26)
[2019-06-16] MEDS: amLODIPine 5 MG TAB PO SCH (08:26)
--- NOTE | 2019-06-16 13:52 | IPNPDOC ---
Text Note Date of Service The patient was seen on 06/16/19. NOTE Subjective: Patient was seen and examined at the bedside. Currently patient reports that she's been progressing well with physical therapy. She denies any shortness of breath, chest pain or abdominal pain. Objective: Vitals (See below) General: Lying in bed, no acute distress, comfortable, AAOx3 HEENT: NC, AT CVS: +S1S2 Lungs: Fair air entry b/l, -w/r/r Abdomen: Soft, ND, NT Extremities: - Edema, - Calf tenderness Assessment and plan: Acute CVA - c/w ASA, Plavix and Atorvastatin - c/w PT / OT as per ARU Dementia - c/w Donepezil Spinal stenosis - c/w Gabapentin - c/w PT / OT as per ARU HTN - BP appears well controlled - c/w Amlodipine and Metoprolol Hypothyroidism - c/w Levothyroxine Mood disorder - c/w Paroxetine and Trazodone GERD - c/w Famotidine and Sucralfate DVT prophylaxis - c/w Lovenox VS,Fishbone, I+O VS, Fishbone, I+O Vital Signs Date Time Temp Pulse Resp B/P (MAP) Pulse Ox O2 Delivery O2 Flow Rate FiO2 06/16/19 08:26 66 128/63 06/16/19 06:00 97.0 18 98 I&O- Last 24 Hours up to 6 AM 06/16/19 06:00 Intake Total 900 ml Balance 900 ml DAJA NIEVES MD Jun 16, 2019 13:52
[2019-06-16 14:00] VITALS: BP 144/64
--- NOTE | 2019-06-16 18:28 | IPNPDOC ---
PM&R Progress Note DATE OF SERVICE: Jun 15, 2019 Shovel Mechanic Progress Note Subjective: Patient seen in OT working on making a grilled cheese sandwich and was unable to complete task safely. She as smiling, but confused. REVIEW OF SYSTEMS: The following is a completed review of systems and has been reviewed. Review of systems otherwise unremarkable. PAIN: Patient self reports neck pain EYES: No recent vision changes EARS, NOSE, & THROAT: No throat pain, or dysphagia, or rhinorrhea CARDIOVASCULAR: Denies chest pain or palpitations PULMONARY: Denies shortness of breath GASTROINTESTINAL: Denies constipation/diarrhea GENITOURINARY: +incontinence MUSCULOSKELETAL: neck pain NEUROLOGICAL:lumbar radiculopathy, +bilat leg weakness HEMATOLOGICAL: +easy bruising SKIN:no rash PSYCHIATRIC: Unremarkable All other review of systems found to be negative. PHYSICAL EXAMINATION: VITAL SIGNS: Please see below. GENERAL: Pleasant and cooperative. No acute distress. HEENT: PERRL. Extraocular movements intact. Clear conjunctiva CARDIOVASCULAR: Regular rate and rhythm. No murmurs, rubs, or gallops LUNGS: Clear to auscultation bilaterally. No wheezes. No rhonchi ABDOMEN: Soft, nontender, nondistended. Positive bowel sounds. Normal active bowel sounds NEUROLOGICAL: Alert and oriented times three. Cranial nerves II through XII grossly intact. Sensation grossly intact +hyperrefelxxia throughout, no Hoffmans or babinski EXTREMITIES: 4\5 strength bilateral upper extremities. 4\5 strength right lower extremity. 4/5 strength in left lower extremity. (-) SLR bilat SKIN: scattered ecchymosis ASSESSMENT:79-year-old F with past medical history of HTN, TIA, HLD who presents status post multiple falls found to have thalamic stroke in setting of severe bilateral lumbar radiculopathy PLAN: 1. PT/OT, strengthen/stretch/maintain ROM bilat UE andLE, advance gait, fall recovery, dynamic balance, ADL safety awareness, ambulating well with RW SL-assess for cognitive deficits, swallow eval-hx of esophageal strictures, MBS performed on admission without notable pathology 2. Neuro: s/p thalamic stroke- c/u ASA, Plavix, and statin for secondary stroke prevention -had tried increasing home dose of Paroxetine to 40mg for motor recovery, however will return to original dose of 20mg as does not seem to be assisting with dementia/pseudodementia features -delirium worse at night, possibly due to sundowning due to hospital, however suspect patient has dementia and will need neurology follow-up -c/u donepezil 5 mg daily 3. Ortho: severe bilateral lumbar stenosis contributing to falls, cauda equina ruled out- f/u outpatient ortho 4. Cardio: htn with increasing BPs since discontinuing terazosin, will add metoprolol and monitor, patient reporting she did not like the way she felt on lisinopril - medicine consulted to assist-recs appreciated 5. resp: encourage incentive spirometry, monitor for infection 6. Endo: hypothyroidism, c/u Synthroid 7. GI ppx: pepcid BID and sucralfate 8. DVT ppx: Lovenox 9. Pain: d/c gabapentin due to delirium vs dementia 10. : hx of incontinence, d/c'd terazosin as this may contributing to incontinence and started Detrol, patient encouraged to stop fluid intake at 4pm and limit herself to one caffeinated beverage a day to be had before noon, improving -UA negative 11. Dispo:to home pending caregiver training, will need 24-7 care Allergies Coded Allergies: Penicillins (Verified Allergy, Severe, THROAT CLOSES, 06/03/19) meperidine (Verified Allergy, Severe, ANAPHYLAXIS, 05/27/19) Vital Signs Vital Signs Date Time Temp Pulse Resp B/P (MAP) Pulse Ox O2 Delivery O2 Flow Rate FiO2 06/16/19 14:37 69 144/64 06/16/19 14:00 97.8 18 96 Current Medications Current Medications Current Medications Medications (Trade) Dose Ordered Sig/Ky Route PRN Reason Start Time Stop Time Status Last Admin Dose Admin Amlodipine Besylate (Norvasc) 5 mg DAILY PO 06/11/19 22:10 06/16/19 08:26 Aspirin (Aspirin Chewable) 81 mg DAILY PO 06/04/19 09:00 06/16/19 08:25 Atorvastatin Calcium (Lipitor) 40 mg DAILY PO 06/04/19 09:00 06/16/19 08:25 Bisacodyl (Dulcolax Suppository) 10 mg DAILYPRN PRN [place] CONSTIPATION 06/03/19 16:30 Clopidogrel Bisulfate (PLAVix) 75 mg DAILY PO 06/04/19 09:00 06/16/19 08:26 Docusate Sodium (Colace) 100 mg BID PO 06/03/19 21:00 06/14/19 22:20 Donepezil HCl (AriCEPT) 5 mg DAILY PO 06/14/19 09:00 06/16/19 08:26 Enoxaparin Sodium (Lovenox) 30 mg DAILY SC 06/04/19 09:00 06/16/19 08:26 Famotidine (Pepcid) 20 mg BID PO 06/03/19 21:00 06/16/19 08:26 Gabapentin (Neurontin) 100 mg DAILY PO 06/04/19 09:00 06/10/19 20:03 DC 06/10/19 09:52 Home Med (Med Rec Complete!) ASDIRECTED XX 06/03/19 17:30 06/03/19 17:30 DC Levothyroxine Sodium (Synthroid) 50 mcg DAILY@06 PO 06/04/19 06:00 06/16/19 06:24 Lidocaine (Lidoderm Patch) 1 patch DAILY TD 06/03/19 09:00 06/03/19 17:11 DC Lidocaine (Lidoderm Patch) 1 patch QHS TD 06/03/19 21:00 06/14/19 17:06 DC 06/13/19 21:25 Lisinopril (Prinivil) 2.5 mg QHS PO 06/03/19 21:00 06/06/19 10:49 DC 06/05/19 20:36 Metoprolol Tartrate (Lopressor) 25 mg Q8H PO 06/10/19 06:00 06/16/19 14:37 Miscellaneous (Unresolved Clarification Entry) SEE LABEL COMMENTS DAILY XX 06/16/19 09:00 06/16/19 14:15 DC Non-Formulary Medication ( See Comment Field Below ) REMOVE LIDODERM PATCH DAILY@21 XX 06/03/19 21:00 06/03/19 21:00 DC Non-Formulary Medication ( See Comment Field Below ) REMOVE LIDODERM PATCH QAM XX 06/04/19 09:00 06/14/19 17:06 DC 06/14/19 09:59 Paroxetine HCl (PAXil) 20 mg QHS PO 06/14/19 21:00 06/15/19 20:33 Paroxetine HCl (PAXil) 40 mg QHS PO 06/03/19 21:00 06/14/19 17:06 DC 06/13/19 21:25 Senna (Senokot) 1 tab QHS PO 06/03/19 21:00 06/14/19 22:20 Sucralfate (Carafate Suspension) 1 gm ACHS PO 06/15/19 17:30 06/16/19 17:04 Sucralfate (Carafate) 1 gm ACHS PO 06/03/19 17:30 06/15/19 16:14 DC 06/14/19 22:20 Terazosin HCl (Hytrin) 2 mg QHS PO 06/06/19 21:00 06/08/19 18:05 DC 06/07/19 21:11 Terazosin HCl (Hytrin) 5 mg QHS PO 06/03/19 21:00 06/06/19 16:09 DC 06/05/19 20:36 Tolterodine Tartrate (Detrol La) 2 mg BID PO 06/08/19 21:00 06/16/19 08:25 Trazodone HCl (Desyrel) 25 mg QHS PO 06/14/19 21:00 06/15/19 20:33 Trazodone HCl (Desyrel) 25 mg QHSP PRN PO INSOMNIA 06/10/19 20:15 06/14/19 17:06 DC 06/13/19 21:25 DONOVAN GALLEGOS MD Jun 16, 2019 18:28
--- NOTE | 2019-06-16 18:30 | IPNPDOC ---
PM&R Progress Note DATE OF SERVICE: Jun 16, 2019 Developmental Psychologist Progress Note Subjective: Patient seen in her room and did not recall her daughter had been in to visit earlier. REVIEW OF SYSTEMS: The following is a completed review of systems and has been reviewed. Review of systems otherwise unremarkable. PAIN: Patient self reports neck pain EYES: No recent vision changes EARS, NOSE, & THROAT: No throat pain, or dysphagia, or rhinorrhea CARDIOVASCULAR: Denies chest pain or palpitations PULMONARY: Denies shortness of breath GASTROINTESTINAL: Denies constipation/diarrhea GENITOURINARY: +incontinence MUSCULOSKELETAL: neck pain NEUROLOGICAL:lumbar radiculopathy, +bilat leg weakness HEMATOLOGICAL: +easy bruising SKIN:no rash PSYCHIATRIC: Unremarkable All other review of systems found to be negative. PHYSICAL EXAMINATION: VITAL SIGNS: Please see below. GENERAL: Pleasant and cooperative. No acute distress. HEENT: PERRL. Extraocular movements intact. Clear conjunctiva CARDIOVASCULAR: Regular rate and rhythm. No murmurs, rubs, or gallops LUNGS: Clear to auscultation bilaterally. No wheezes. No rhonchi ABDOMEN: Soft, nontender, nondistended. Positive bowel sounds. Normal active bowel sounds NEUROLOGICAL: Alert and oriented times three. Cranial nerves II through XII grossly intact. Sensation grossly intact +hyperreflexia throughout, no Hoffmans or babinski EXTREMITIES: 4\5 strength bilateral upper extremities. 4\5 strength right lower extremity. 4/5 strength in left lower extremity. (-) SLR bilat SKIN: scattered ecchymosis ASSESSMENT:79-year-old F with past medical history of HTN, TIA, HLD who presents status post multiple falls found to have thalamic stroke in setting of severe bilateral lumbar radiculopathy PLAN: 1. PT/OT, strengthen/stretch/maintain ROM bilat UE andLE, advance gait, fall recovery, dynamic balance, ADL safety awareness, ambulating well with RW SL-assess for cognitive deficits, swallow eval-hx of esophageal strictures, MBS performed on admission without notable pathology 2. Neuro: s/p thalamic stroke- c/u ASA, Plavix, and statin for secondary stroke prevention -had tried increasing home dose of Paroxetine to 40mg for motor recovery, however will return to original dose of 20mg as does not seem to be assisting with dementia/pseudodementia features -delirium worse at night, possibly due to ing due to hospital, however suspect patient has dementia and will need neurology follow-up -c/u donepezil 5 mg daily 3. Ortho: severe bilateral lumbar stenosis contributing to falls, cauda equina ruled out- f/u outpatient ortho 4. Cardio: htn with increasing BPs since discontinuing terazosin, will add metoprolol and monitor, patient reporting she did not like the way she felt on lisinopril - medicine consulted to assist-recs appreciated 5. resp: encourage incentive spirometry, monitor for infection 6. Endo: hypothyroidism, c/u Synthroid 7. GI ppx: pepcid BID and sucralfate 8. DVT ppx: Lovenox 9. Pain: d/c'd gabapentin due to delirium vs dementia 10. : hx of incontinence, d/c'd terazosin as this may contributing to incontinence and started Detrol, patient encouraged to stop fluid intake at 4pm and limit herself to one caffeinated beverage a day to be had before noon, improving -UA negative 11. Dispo:to home pending caregiver training, will need 24-7 care Allergies Coded Allergies: Penicillins (Verified Allergy, Severe, THROAT CLOSES, 06/03/19) meperidine (Verified Allergy, Severe, ANAPHYLAXIS, 05/27/19) Vital Signs Vital Signs Date Time Temp Pulse Resp B/P (MAP) Pulse Ox O2 Delivery O2 Flow Rate FiO2 06/16/19 14:37 69 144/64 06/16/19 14:00 97.8 18 96 Current Medications Current Medications Current Medications Medications (Trade) Dose Ordered Sig/Ky Route PRN Reason Start Time Stop Time Status Last Admin Dose Admin Amlodipine Besylate (Norvasc) 5 mg DAILY PO 06/11/19 22:10 06/16/19 08:26 Aspirin (Aspirin Chewable) 81 mg DAILY PO 06/04/19 09:00 06/16/19 08:25 Atorvastatin Calcium (Lipitor) 40 mg DAILY PO 06/04/19 09:00 06/16/19 08:25 Bisacodyl (Dulcolax Suppository) 10 mg DAILYPRN PRN [place] CONSTIPATION 06/03/19 16:30 Clopidogrel Bisulfate (PLAVix) 75 mg DAILY PO 06/04/19 09:00 06/16/19 08:26 Docusate Sodium (Colace) 100 mg BID PO 06/03/19 21:00 06/14/19 22:20 Donepezil HCl (AriCEPT) 5 mg DAILY PO 06/14/19 09:00 06/16/19 08:26 Enoxaparin Sodium (Lovenox) 30 mg DAILY SC 06/04/19 09:00 06/16/19 08:26 Famotidine (Pepcid) 20 mg BID PO 06/03/19 21:00 06/16/19 08:26 Gabapentin (Neurontin) 100 mg DAILY PO 06/04/19 09:00 06/10/19 20:03 DC 06/10/19 09:52 Home Med (Med Rec Complete!) ASDIRECTED XX 06/03/19 17:30 06/03/19 17:30 DC Levothyroxine Sodium (Synthroid) 50 mcg DAILY@06 PO 06/04/19 06:00 06/16/19 06:24 Lidocaine (Lidoderm Patch) 1 patch DAILY TD 06/03/19 09:00 06/03/19 17:11 DC Lidocaine (Lidoderm Patch) 1 patch QHS TD 06/03/19 21:00 06/14/19 17:06 DC 06/13/19 21:25 Lisinopril (Prinivil) 2.5 mg QHS PO 06/03/19 21:00 06/06/19 10:49 DC 06/05/19 20:36 Metoprolol Tartrate (Lopressor) 25 mg Q8H PO 06/10/19 06:00 06/16/19 14:37 Miscellaneous (Unresolved Clarification Entry) SEE LABEL COMMENTS DAILY XX 06/16/19 09:00 06/16/19 14:15 DC Non-Formulary Medication ( See Comment Field Below ) REMOVE LIDODERM PATCH DAILY@21 XX 06/03/19 21:00 06/03/19 21:00 DC Non-Formulary Medication ( See Comment Field Below ) REMOVE LIDODERM PATCH QAM XX 06/04/19 09:00 06/14/19 17:06 DC 06/14/19 09:59 Paroxetine HCl (PAXil) 20 mg QHS PO 06/14/19 21:00 06/15/19 20:33 Paroxetine HCl (PAXil) 40 mg QHS PO 06/03/19 21:00 06/14/19 17:06 DC 06/13/19 21:25 Senna (Senokot) 1 tab QHS PO 06/03/19 21:00 06/14/19 22:20 Sucralfate (Carafate Suspension) 1 gm ACHS PO 06/15/19 17:30 06/16/19 17:04 Sucralfate (Carafate) 1 gm ACHS PO 06/03/19 17:30 06/15/19 16:14 DC 06/14/19 22:20 Terazosin HCl (Hytrin) 2 mg QHS PO 06/06/19 21:00 06/08/19 18:05 DC 06/07/19 21:11 Terazosin HCl (Hytrin) 5 mg QHS PO 06/03/19 21:00 06/06/19 16:09 DC 06/05/19 20:36 Tolterodine Tartrate (Detrol La) 2 mg BID PO 06/08/19 21:00 06/16/19 08:25 Trazodone HCl (Desyrel) 25 mg QHS PO 06/14/19 21:00 06/15/19 20:33 Trazodone HCl (Desyrel) 25 mg QHSP PRN PO INSOMNIA 06/10/19 20:15 06/14/19 17:06 DC 06/13/19 21:25 DONOVAN GALLEGOS MD Jun 16, 2019 18:30
[2019-06-16] MEDS: traZODone 25MG PER 1/2 TABLET PO SCH (21:53)
[2019-06-16] MEDS: SENNA 8.6 MG TAB (SENOKOT) PO SCH (21:54)
[2019-06-16] MEDS: PARoxetine 20 MG TAB PO SCH (21:54)
[2019-06-17 04:00] VITALS: BP 126/67
[2019-06-17] MEDS: LEVOTHYROXINE 50MCG TABLET (0.05MG) PO SCH (06:44)
[2019-06-17] MEDS: METOPROLOL TART 25 MG TABLET PO SCH ×3 (06:45→20:48)
[2019-06-17] MEDS: SUCRALFATE SUSP 1GM/10ML UD PO SCH ×4 (08:24→20:47)
[2019-06-17] MEDS: TOLTERODINE TARTRATE 2 MG LA CAP (DETROL LA) PO SCH ×2 (08:25→20:48)
[2019-06-17] MEDS: ATORVASTATIN 20 MG TAB PO SCH (08:25)
[2019-06-17] MEDS: ASPIRIN 81 MG CHEW TABLET PO SCH (08:25)
[2019-06-17] MEDS: ENOXAPARIN 30 MG/0.3 ML SYR (J1650) SC SCH (08:25)
[2019-06-17] MEDS: amLODIPine 5 MG TAB PO SCH (08:25)
[2019-06-17] MEDS: DOCUSATE SODIUM 100 MG CAP PO SCH ×2 (08:25→20:00)
[2019-06-17] MEDS: FAMOTIDINE 20 MG TAB PO SCH ×2 (08:25→20:47)
[2019-06-17] MEDS: CLOPIDOGREL 75 MG TAB PO SCH (08:26)
[2019-06-17] MEDS: DONEPEZIL 5 MG TAB PO SCH (08:26)
[2019-06-17 14:00] VITALS: BP 109/98
[2019-06-17 20:00] VITALS: BP 142/62
[2019-06-17] MEDS: traZODone 25MG PER 1/2 TABLET PO SCH (20:47)
[2019-06-17] MEDS: SENNA 8.6 MG TAB (SENOKOT) PO SCH (20:48)
[2019-06-17] MEDS: PARoxetine 20 MG TAB PO SCH (20:48)
[2019-06-18] MEDS: METOPROLOL TART 25 MG TABLET PO SCH ×3 (05:34→22:11)
[2019-06-18] MEDS: LEVOTHYROXINE 50MCG TABLET (0.05MG) PO SCH (05:38)
[2019-06-18 06:00] VITALS: BP 108/58
[2019-06-18] MEDS: SUCRALFATE SUSP 1GM/10ML UD PO SCH ×4 (07:42→22:10)
[2019-06-18] MEDS: DONEPEZIL 5 MG TAB PO SCH (09:57)
[2019-06-18] MEDS: DOCUSATE SODIUM 100 MG CAP PO SCH (09:57)
[2019-06-18] MEDS: ATORVASTATIN 20 MG TAB PO SCH (09:57)
[2019-06-18] MEDS: CLOPIDOGREL 75 MG TAB PO SCH (09:57)
[2019-06-18] MEDS: ASPIRIN 81 MG CHEW TABLET PO SCH (09:57)
[2019-06-18] MEDS: FAMOTIDINE 20 MG TAB PO SCH ×2 (09:57→22:11)
[2019-06-18] MEDS: TOLTERODINE TARTRATE 2 MG LA CAP (DETROL LA) PO SCH ×2 (09:58→22:11)
[2019-06-18] MEDS: amLODIPine 5 MG TAB PO SCH (09:59)
[2019-06-18] MEDS: ENOXAPARIN 30 MG/0.3 ML SYR (J1650) SC SCH (10:01)
[2019-06-18 11:15] LABS: BASO # 0.1 10^3/uL (0.0-0.2); BASO % 1.1 % (0.0-1.0); EOS # 0.3 10^3/uL (0.0-0.5); EOS % 5.9 % (0.0-3.0); HEMATOCRIT 32.7 % (36.0-47.0); HEMOGLOBIN 10.6 g/dl (12.0-15.5); LYMPH # 1.1 10^3/uL (1.5-5.0); LYMPH % 24.1 % (24.0-44.0); MEAN CORPUSCULAR HGB CONC 32.4 g/dl (32.0-36.5); MEAN CORPUSCULAR VOLUME 92.6 fl (80.0-96.0); MONO # 0.5 10^3/uL (0.0-0.8); MONO % 12.3 % (0.0-5.0); NEUTROPHILS # 2.5 10^3/uL (1.5-8.5); NEUTROPHILS % 56.4 % (36.0-66.0); PLATELET COUNT, AUTOMATED 201 10^3/uL (150-450); RED BLOOD COUNT 3.53 10^6/uL (4.00-5.40); WHITE BLOOD COUNT 4.4 10^3/uL (4.0-10.0)
[2019-06-18 12:07] LABS: CALCIUM LEVEL 8.8 MG/DL (8.8-10.2); GLOMERULAR FILTRATION RATE 57.1 (>39); POTASSIUM SERUM 4.1 MEQ/L (3.5-5.1)
--- NOTE | 2019-06-18 12:40 | IPNPDOC ---
PM&R Progress Note DATE OF SERVICE: Jun 17, 2019 Traffic Reporter Progress Note Subjective: Patient seen in her room with her armen visiting from [place]. She reports she is having loose stools and no loner wants to take bowel meds. REVIEW OF SYSTEMS: The following is a completed review of systems and has been reviewed. Review of systems otherwise unremarkable. PAIN: Patient self reports neck pain EYES: No recent vision changes EARS, NOSE, & THROAT: No throat pain, or dysphagia, or rhinorrhea CARDIOVASCULAR: Denies chest pain or palpitations PULMONARY: Denies shortness of breath GASTROINTESTINAL: Denies constipation/diarrhea GENITOURINARY: +incontinence MUSCULOSKELETAL: neck pain NEUROLOGICAL:lumbar radiculopathy, +bilat leg weakness HEMATOLOGICAL: +easy bruising SKIN:no rash PSYCHIATRIC: Unremarkable All other review of systems found to be negative. PHYSICAL EXAMINATION: VITAL SIGNS: Please see below. GENERAL: Pleasant and cooperative. No acute distress. HEENT: PERRL. Extraocular movements intact. Clear conjunctiva CARDIOVASCULAR: Regular rate and rhythm. No murmurs, rubs, or gallops LUNGS: Clear to auscultation bilaterally. No wheezes. No rhonchi ABDOMEN: Soft, nontender, nondistended. Positive bowel sounds. Normal active bowel sounds NEUROLOGICAL: Alert and oriented times three. Cranial nerves II through XII grossly intact. Sensation grossly intact +hyperreflexia throughout, no Hoffmans or babinski EXTREMITIES: 4\5 strength bilateral upper extremities. 4\5 strength right lower extremity. 4/5 strength in left lower extremity. (-) SLR bilat SKIN: scattered ecchymosis ASSESSMENT:79-year-old F with past medical history of HTN, TIA, HLD who presents status post multiple falls found to have thalamic stroke in setting of severe bilateral lumbar radiculopathy PLAN: 1. PT/OT, strengthen/stretch/maintain ROM bilat UE andLE, advance gait, fall recovery, dynamic balance, ADL safety awareness, ambulating well with RW SL-assess for cognitive deficits, swallow eval-hx of esophageal strictures, MBS performed on admission without notable pathology 2. Neuro: s/p thalamic stroke- c/u ASA, Plavix, and statin for secondary stroke prevention -had tried increasing home dose of Paroxetine to 40mg for motor recovery, however will return to original dose of 20mg as does not seem to be assisting with dementia/pseudodementia features -delirium worse at night, possibly due to sundowning due to hospital, however suspect patient has dementia and will need neurology follow-up -c/u donepezil 5 mg daily 3. Ortho: severe bilateral lumbar stenosis contributing to falls, cauda equina ruled out- f/u outpatient ortho 4. Cardio: htn with increasing BPs since discontinuing terazosin, will add metoprolol and monitor, patient reporting she did not like the way she felt on lisinopril - medicine consulted to assist-recs appreciated 5. resp: encourage incentive spirometry, monitor for infection 6. Endo: hypothyroidism, c/u Synthroid 7. GI ppx: pepcid BID and sucralfate 8. DVT ppx: Lovenox 9. Pain: d/c'd gabapentin due to delirium vs dementia 10. : hx of incontinence, d/c'd terazosin as this may contributing to in continence and started Detrol, patient encouraged to stop fluid intake at 4pm and limit herself to one caffeinated beverage a day to be had before noon, improving -initial UA negative, repeat UA ordered for delirium work-up Cx pending 11. Dispo:to home pending caregiver training, will need 24-7 care Allergies Coded Allergies: Penicillins (Verified Allergy, Severe, THROAT CLOSES, 06/03/19) meperidine (Verified Allergy, Severe, ANAPHYLAXIS, 05/27/19) Vital Signs Vital Signs Date Time Temp Pulse Resp B/P (MAP) Pulse Ox O2 Delivery O2 Flow Rate FiO2 06/18/19 09:59 68 92/55 06/18/19 06:00 98.3 16 97 Laboratory Data CBC/BMP Laboratory Tests 06/18/19 11:00 Red Blood Count 3.53 L, Mean Corpuscular Volume 92.6, Mean Corpuscular Hemoglobin 30.0, Mean Corpuscular Hemoglobin Concent 32.4, Red Cell Distribution Width 12.8, Neutrophils (%) (Auto) 56.4, Lymphocytes (%) (Auto) 24.1, Monocytes (%) (Auto) 12.3 H, Eosinophils (%) (Auto) 5.9 H, Basophils (%) (Auto) 1.1 H, Neutrophils # (Auto) 2.5, Lymphocytes # (Auto) 1.1 L, Monocytes # (Auto) 0.5, Eosinophils # (Auto) 0.3, Basophils # (Auto) 0.1, Calcium Level 8.8 Labs 24H Laboratory Tests 2 06/18/19 11:00: Immature Granulocyte % (Auto) 0.2, White Blood Count 4.4, Red Blood Count 3.53L, Hemoglobin 10.6L, Hematocrit 32.7L, Mean Corpuscular Volume 92.6, Mean Corpusc ular Hemoglobin 30.0, Mean Corpuscular Hemoglobin Concent 32.4, Red Cell Distribution Width 12.8, Platelet Count 201, Neutrophils (%) (Auto) 56.4, Lymphocytes (%) (Auto) 24.1, Monocytes (%) (Auto) 12.3H, Eosinophils (%) (Auto) 5.9H, Basophils (%) (Auto) 1.1H, Neutrophils # (Auto) 2.5, Lymphocytes # (Auto) 1.1L, Monocytes # (Auto) 0.5, Eosinophils # (Auto) 0.3, Basophils # (Auto) 0.1, Nucleated Red Blood Cells % (auto) 0.0, Anion Gap 8, Glomerular Filtration Rate 57.1, Blood Urea Nitrogen 26H, Creatinine 1.00, Sodium Level 139, Potassium Level 4.1, Chloride Level 105, Carbon Dioxide Level 26, Calcium Level 8.8 Microbiology Microbiology 06/17/19 Urine Culture, Received Pending Current Medications Current Medications Current Medications Medications (Trade) Dose Ordered Sig/Ky Route PRN Reason Start Time Stop Time Status Last Admin Dose Admin Amlodipine Besylate (Norvasc) 5 mg DAILY PO 06/11/19 22:10 06/18/19 09:59 Aspirin (Aspirin Chewable) 81 mg DAILY PO 06/04/19 09:00 06/18/19 09:57 Atorvastatin Calcium (Lipitor) 40 mg DAILY PO 06/04/19 09:00 06/18/19 09:57 Bisacodyl (Dulcolax Suppository) 10 mg DAILYPRN PRN [facility] CONSTIPATION 06/03/19 16:30 Clopidogrel Bisulfate (PLAVix) 75 mg DAILY PO 06/04/19 09:00 06/18/19 09:57 Docusate Sodium (Colace) 100 mg BID PO 06/03/19 21:00 06/18/19 09:57 Donepezil HCl (AriCEPT) 5 mg DAILY PO 06/14/19 09:00 06/18/19 09:57 Enoxaparin Sodium (Lovenox) 30 mg DAILY SC 06/04/19 09:00 06/18/19 10:01 Famotidine (Pepcid) 20 mg BID PO 06/03/19 21:00 06/18/19 09:57 Gabapentin (Neurontin) 100 mg DAILY PO 06/04/19 09:00 06/10/19 20:03 DC 06/10/19 09:52 Home Med (Med Rec Complete!) ASDIRECTED XX 06/03/19 17:30 06/03/19 17:30 DC Levothyroxine Sodium (Synthroid) 50 mcg DAILY@06 PO 06/04/19 06:00 06/18/19 05:38 Lidocaine (Lidoderm Patch) 1 patch DAILY TD 06/03/19 09:00 06/03/19 17:11 DC Lidocaine (Lidoderm Patch) 1 patch QHS TD 06/03/19 21:00 06/14/19 17:06 DC 06/13/19 21:25 Lisinopril (Prinivil) 2.5 mg QHS PO 06/03/19 21:00 06/06/19 10:49 DC 06/05/19 20:36 Metoprolol Tartrate (Lopressor) 25 mg Q8H PO 06/10/19 06:00 06/17/19 20:48 Miscellaneous (Unresolved Clarification Entry) SEE LABEL COMMENTS DAILY XX 06/16/19 09:00 06/16/19 14:15 DC Non-Formulary Medication ( See Comment Field Below ) REMOVE LIDODERM PATCH DAILY@21 XX 06/03/19 21:00 06/03/19 21:00 DC Non-Formulary Medication ( See Comment Field Below ) REMOVE LIDODERM PATCH QAM XX 06/04/19 09:00 06/14/19 17:06 DC 06/14/19 09:59 Paroxetine HCl (PAXil) 20 mg QHS PO 06/14/19 21:00 06/17/19 20:48 Paroxetine HCl (PAXil) 40 mg QHS PO 06/03/19 21:00 06/14/19 17:06 DC 06/13/19 21:25 Senna (Senokot) 1 tab QHS PO 06/03/19 21:00 06/16/19 21:54 Sucralfate (Carafate Suspension) 1 gm ACHS PO 06/15/19 17:30 06/18/19 11:48 Sucralfate (Carafate) 1 gm ACHS PO 06/03/19 17:30 06/15/19 16:14 DC 06/14/19 22:20 Terazosin HCl (Hytrin) 2 mg QHS PO 06/06/19 21:00 06/08/19 18:05 DC 06/07/19 21:11 Terazosin HCl (Hytrin) 5 mg QHS PO 06/03/19 21:00 06/06/19 16:09 DC 06/05/19 20:36 Tolterodine Tartrate (Detrol La) 2 mg BID PO 06/08/19 21:00 06/18/19 09:58 Trazodone HCl (Desyrel) 25 mg QHS PO 06/14/19 21:00 06/17/19 20:47 Trazodone HCl (Desyrel) 25 mg QHSP PRN PO INSOMNIA 06/10/19 20:15 06/14/19 17:06 DC 06/13/19 21:25 DONOVAN GALLEGOS MD Jun 18, 2019 12:40
[2019-06-18 13:34] VITALS: BP 116/64
--- NOTE | 2019-06-18 15:35 | IPNPDOC ---
Text Note Date of Service The patient was seen on 06/18/19. NOTE Subjective: Patient was seen and examined at the bedside. Patient does not report any problems overnight. . She is concerned that she has not yet cleared physical therapy and ready to go home. Advised that she will require additional physical therapy until she clears. Currently, he denies chest pain, shortness of breath, abdominal pain or diarrhea. Objective: Vitals (See below) General: Lying in bed, no acute distress, comfortable, AAOx3 HEENT: NC, AT CVS: +S1S2 Lungs: Fair air entry b/l, no appreciable wheezing, rhonchi or rales Abdomen: Soft, nondistended, nontender Extremities: No evidence of edema, - Calf tenderness Assessment and plan: Acute CVA - c/w ASA, Plavix and Atorvastatin - c/w PT / OT as per ARU - Patient has not yet cleared physical therapy Dementia - c/w Donepezil Spinal stenosis - c/w Gabapentin - c/w PT / OT as per ARU HTN - BP well controlled - c/w Amlodipine and Metoprolol Hypothyroidism - c/w Levothyroxine Mood disorder - c/w Paroxetine and Trazodone GERD - c/w Famotidine and Sucralfate DVT prophylaxis - c/w Lovenox Disposition: - Awaiting patient's clear physical therapy, discharge as per ARU Ying BRYANT, I+O Ying BRYANT, I+O Laboratory Tests 06/18/19 11:00 Red Blood Count 3.53 L, Mean Corpuscular Volume 92.6, Mean Corpuscular Hemoglobin 30.0, Mean Corpuscular Hemoglobin Concent 32.4, Red Cell Distribution Width 12.8, Neutrophils (%) (Auto) 56.4, Lymphocytes (%) (Auto) 24.1, Monocytes (%) (Auto) 12.3 H, Eosinophils (%) (Auto) 5.9 H, Basophils (%) (Auto) 1.1 H, Neutrophils # (Auto) 2.5, Lymphocytes # (Auto) 1.1 L, Monocytes # (Auto) 0.5, Eosinophils # (Auto) 0.3, Basophils # (Auto) 0.1, Calcium Level 8.8 Vital Signs Date Time Temp Pulse Resp B/P (MAP) Pulse Ox O2 Delivery O2 Flow Rate FiO2 06/18/19 13:40 66 116/64 06/18/19 13:34 96.9 16 100 I&O- Last 24 Hours up to 6 AM 06/18/19 06:00 Intake Total 840 ml Balance 840 ml DAJA NIEVES MD Jun 18, 2019 15:35
[2019-06-18 20:00] VITALS: BP 117/56
[2019-06-18] MEDS: PARoxetine 20 MG TAB PO SCH (22:11)
[2019-06-18] MEDS: traZODone 25MG PER 1/2 TABLET PO SCH (22:11)
[2019-06-19 04:00] VITALS: BP_SYST 151; BP_SYST 90; BP_DIAS 44; BP_DIAS 76
[2019-06-19] MEDS: METOPROLOL TART 25 MG TABLET PO SCH ×3 (06:00→21:21)
[2019-06-19] MEDS: LEVOTHYROXINE 50MCG TABLET (0.05MG) PO SCH (06:25)
[2019-06-19] MEDS: SUCRALFATE SUSP 1GM/10ML UD PO SCH ×4 (08:19→21:21)
[2019-06-19] MEDS: CLOPIDOGREL 75 MG TAB PO SCH (08:20)
[2019-06-19] MEDS: ATORVASTATIN 20 MG TAB PO SCH (08:20)
[2019-06-19] MEDS: FAMOTIDINE 20 MG TAB PO SCH ×2 (08:20→21:21)
[2019-06-19] MEDS: DONEPEZIL 5 MG TAB PO SCH (08:20)
[2019-06-19] MEDS: TOLTERODINE TARTRATE 2 MG LA CAP (DETROL LA) PO SCH ×2 (08:20→21:21)
[2019-06-19] MEDS: ASPIRIN 81 MG CHEW TABLET PO SCH (08:20)
[2019-06-19] MEDS: ENOXAPARIN 30 MG/0.3 ML SYR (J1650) SC SCH (08:20)
[2019-06-19] MEDS: amLODIPine 5 MG TAB PO SCH (08:20)
[2019-06-19 14:00] VITALS: BP 110/60
[2019-06-19 20:00] VITALS: BP 117/56
[2019-06-19] MEDS: PARoxetine 20 MG TAB PO SCH (21:21)
[2019-06-19] MEDS: traZODone 25MG PER 1/2 TABLET PO SCH (21:21)
[2019-06-20 06:00] VITALS: BP 127/68
[2019-06-20] MEDS: METOPROLOL TART 25 MG TABLET PO SCH ×3 (06:38→22:00)
[2019-06-20] MEDS: LEVOTHYROXINE 50MCG TABLET (0.05MG) PO SCH (06:38)
[2019-06-20] MEDS: TOLTERODINE TARTRATE 2 MG LA CAP (DETROL LA) PO SCH ×2 (09:02→20:12)
[2019-06-20] MEDS: DONEPEZIL 5 MG TAB PO SCH (09:03)
[2019-06-20] MEDS: amLODIPine 5 MG TAB PO SCH (09:03)
[2019-06-20] MEDS: FAMOTIDINE 20 MG TAB PO SCH ×2 (09:03→20:12)
[2019-06-20] MEDS: CLOPIDOGREL 75 MG TAB PO SCH (09:03)
[2019-06-20] MEDS: SUCRALFATE SUSP 1GM/10ML UD PO SCH ×4 (09:03→20:11)
[2019-06-20] MEDS: ASPIRIN 81 MG CHEW TABLET PO SCH (09:03)
[2019-06-20] MEDS: ATORVASTATIN 20 MG TAB PO SCH (09:03)
[2019-06-20] MEDS: ENOXAPARIN 30 MG/0.3 ML SYR (J1650) SC SCH (09:04)
[2019-06-20 14:00] VITALS: BP 126/65
--- NOTE | 2019-06-20 14:24 | IPNPDOC ---
Text Note Date of Service The patient was seen on 06/20/19. NOTE Subjective: Patient was seen and examined at the bedside. Patient has had an uneventful evening. She was seen sitting up watching television. Patient denies chest pain, shortness of breath or palpitations. Denies nausea, diarrhea or abdominal pain. Objective: Vitals (See below) General: Lying in bed, no acute distress, comfortable, AAOx3 HEENT: NC, AT CVS: +S1S2 Lungs: Auscultation is without rhonchi, rales or wheezing, remains fair bilaterally Abdomen: No distention or tenderness is appreciated. Abdomen remains soft Extremities: Lower extremities are free of any edema, - Calf tenderness Assessment and plan: Acute CVA - c/w ASA, Plavix and Atorvastatin - c/w PT / OT as per ARU - awaiting clearance Dementia - c/w Donepezil Spinal stenosis - c/w Gabapentin - c/w PT / OT as per ARU HTN - BP well controlled - c/w Amlodipine and Metoprolol Hypothyroidism - c/w Levothyroxine Mood disorder - c/w Paroxetine and Trazodone GERD - c/w Famotidine and Sucralfate DVT prophylaxis - c/w Lovenox Disposition: - Awaiting clearance from PT/OT VS,Fishbone, I+O VS, Fishbone, I+O Vital Signs Date Time Temp Pulse Resp B/P (MAP) Pulse Ox O2 Delivery O2 Flow Rate FiO2 06/20/19 14:00 97.7 79 17 126/65 (85) 98 06/20/19 06:00 97.0 I&O- Last 24 Hours up to 6 AM 06/20/19 06:00 Intake Total 600 ml Balance 600 ml DAJA NIEVES MD Jun 20, 2019 14:24
[2019-06-20 20:00] VITALS: BP 130/75
[2019-06-20] MEDS: traZODone 25MG PER 1/2 TABLET PO SCH (20:11)
[2019-06-20] MEDS: PARoxetine 20 MG TAB PO SCH (20:12)
[2019-06-21] MEDS: LEVOTHYROXINE 50MCG TABLET (0.05MG) PO SCH (05:51)
[2019-06-21] MEDS: METOPROLOL TART 25 MG TABLET PO SCH ×2 (05:51→14:25)
[2019-06-21 06:00] VITALS: BP 144/84
[2019-06-21] MEDS: SUCRALFATE SUSP 1GM/10ML UD PO SCH ×2 (08:15→12:50)
[2019-06-21] MEDS: FAMOTIDINE 20 MG TAB PO SCH (08:16)
[2019-06-21] MEDS: CLOPIDOGREL 75 MG TAB PO SCH (08:16)
[2019-06-21] MEDS: TOLTERODINE TARTRATE 2 MG LA CAP (DETROL LA) PO SCH (08:16)
[2019-06-21] MEDS: ASPIRIN 81 MG CHEW TABLET PO SCH (08:16)
[2019-06-21] MEDS: amLODIPine 5 MG TAB PO SCH (08:16)
[2019-06-21] MEDS: ENOXAPARIN 30 MG/0.3 ML SYR (J1650) SC SCH (08:16)
[2019-06-21] MEDS: DONEPEZIL 5 MG TAB PO SCH (08:16)
[2019-06-21] MEDS: ATORVASTATIN 20 MG TAB PO SCH (08:16)
[2019-06-21] MEDS ORDERED: ASPI81CH8 PO (08:54)
[2019-06-21] MEDS ORDERED: FAMO20TA PO (08:54)
[2019-06-21] MEDS ORDERED: ATOR1TAB21 PO (08:54)
[2019-06-21] MEDS ORDERED: DETR2CAP PO (08:54)
[2019-06-21] MEDS ORDERED: LEVO50TA5 PO (08:54)
[2019-06-21] MEDS ORDERED: TRAZ-252 PO (08:54)
[2019-06-21] MEDS ORDERED: SUCR10SS PO (08:54)
[2019-06-21] MEDS ORDERED: ARIC1TAB PO (08:54)
[2019-06-21] MEDS ORDERED: AMLO5TAB6 PO (08:54)
[2019-06-21] MEDS ORDERED: CLOP75TA2 PO (08:54)
[2019-06-21] MEDS ORDERED: METO1TAB32 PO (08:54)
[2019-06-21] MEDS ORDERED: PARO20TA3 PO (08:54)
[2019-06-21 14:00] VITALS: BP 123/78
[2019-06-21 14:25] VITALS: BP 119/88
--- NOTE | 2019-06-28 14:30 | PMRDS ---
DATE OF ADMISSION: 06/03/2019 DATE OF DISCHARGE: 06/21/2019 CHIEF COMPLAINT/DISCHARGE DIAGNOSIS: Stroke. HISTORY OF PRESENT ILLNESS: 79-year-old female past medical history of spinal stenosis, hypertension, hypothyroidism, transient ischemic attack (TIA), hyperlipidemia, irritable bowel syndrome (IBS), gastroesophageal reflux disease (GERD), esophageal stricture and diverticulosis who fell six times at home due to leg weakness without head trauma or loss of consciousness (LOC) who presented to the [facility] Emergency Department (ED) with an inability to walk. CT showed negative for acute changes. MRI showed "Focus of abnormal diffusion weighted and ADC map signal in the left thalamus barely visible on flair weighted imaging consistent with an acute to subacute left thalamic infarct... Chronic lacunar infarct right basal ganglia". She was placed on telemetry for new diagnosis stroke. Further workup included a lumbar MRI for bilateral lower extremity weakness which showed severe foraminal stenosis L4-L5 with preserved sensation and history of urinary incontinence. Imaging was reviewed by the patient's spine doctor who did not recommend any specific treatment for her back. Neurology recommended Plavix daily, continue aspirin and statin. Echo was also recommended which showed "Normal left ventricular size, wall thickness and normal global left ventricular systolic function. The estimated global left ventricular systolic ejection fraction is 60-65%". She was evaluated by therapy and noted to have impairment in activities of daily living (ADL) mobility below her prior level of function and deemed medically for discharge to acute rehabilitation unit (ARU) 06/03/2019. PAST MEDICAL HISTORY: As per history of present illness (HPI). HOSPITAL COURSE: The patient was admitted and enrolled in a comprehensive physical therapy (PT), occupational therapy (OT) and speech language pathology program. She received 24-hour nursing supervision and weekly team meetings were held to discuss her progress. The patient had persistent episodes of delirium during her hospital course. Infectious workup was negative. She was started on donepezil 5 mg daily. She had urinary incontinence for which her terazosin was discontinued and she was started on Detrol with improvement in her urinary frequency. She was maintained on paroxetine for history of depression and continued on it for pseudodementia features. She performed well in therapy, however, she was deemed safe to return home with 24/7 supervision due to cognitive deficits. DISCHARGE MEDICATIONS: As per discharge instructions. FUNCTIONAL HISTORY: On discharge, the patient was standby assist for ambulation, able to ambulate 3000 feet and negotiate stairs in occupational therapy. She was standby assist to contact guard assist for bathing, dressing and grooming. Her daughter was trained and endorsed to the team that she was able to provide 14/04 care.
== END 2019-06-21 16:10 | disposition home or self-care (01) | DRG 93 ==
LOC: M PM&R 15:55
PROVIDERS: ADMIT Physical Medicine & Rehabilitation; ATTEND Physical Medicine & Rehabilitation
DX: R26.89 Other abnormalities of gait and mobility (principal); K21.9 Gastro-esophageal reflux disease without esophagitis; I10 Essential (primary) hypertension; E03.9 Hypothyroidism, unspecified; Z86.73 Personal history of transient ischemic attack (TIA), and cerebral infarction without residual deficits; K57.30 Diverticulosis of large intestine without perforation or abscess without bleeding; Z79.899 Other long term (current) drug therapy; Z88.0 Allergy status to penicillin; Z88.8 Allergy status to other drugs, medicaments and biological substances; E78.5 Hyperlipidemia, unspecified; F32.9 Major depressive disorder, single episode, unspecified; H40.9 Unspecified glaucoma; R32 Unspecified urinary incontinence; I95.9 Hypotension, unspecified; R29.6 Repeated falls; M48.061 Spinal stenosis, lumbar region without neurogenic claudication; F03.90 Unspecified dementia, unspecified severity, without behavioral disturbance, psychotic disturbance, mood disturbance, and anxiety; M19.90 Unspecified osteoarthritis, unspecified site

== ENCOUNTER 2019-06-28 17:39 | Emergency (ER) | payer MEDICARE ==
[~2019-06-28] VITALS: Ht 157.5 cm; Wt 48.8 kg
[~2019-06-28 17:39] MED LIST changes: +AMLO5TAB6 PO; +ARIC1TAB PO; +ASPI81CH8 PO; +DETR2CAP PO; +FAMO20TA PO; +GI COCTAIL PO; -LIDOCAINE 5% (LIDODERM) PATCH TD SCH; +METO1TAB32 PO; +PARO20TA3 PO; +PLAV1TAB2 PO; +TRAZ-252 PO
--- NOTE | 2019-06-28 19:05 | REP ---
Portable chest x-ray: Single view. History: CVA. Comparison chest x-ray: April 02, 2018. Findings: EKG monitoring electrodes overlie the chest. Lungs are well inflated and free of infiltrate. Pleural angles are sharp. The patient is rotated slightly to the right. The aorta somewhat tortuous. Impression: No active disease. Electronically Signed by Indio Kaur MD 06/28/2019 06:55 P
[2019-06-28] MEDS ORDERED: NS 500 ML IV ONE (19:30)
[2019-06-28 19:45] LABS: BASO # 0.1 10^3/uL (0.0-0.2); BASO % 1.8 % (0.0-1.0); EOS # 0.3 10^3/uL (0.0-0.5); EOS % 5.1 % (0.0-3.0); HEMATOCRIT 36.2 % (36.0-47.0); HEMOGLOBIN 12.1 g/dl (12.0-15.5); LYMPH # 1.7 10^3/uL (1.5-5.0); LYMPH % 27.8 % (24.0-44.0); MEAN CORPUSCULAR HEMOGLOBIN 29.9 pg (27.0-33.0); MEAN CORPUSCULAR HGB CONC 33.4 g/dl (32.0-36.5); MEAN CORPUSCULAR VOLUME 89.4 fl (80.0-96.0); MONO # 0.8 10^3/uL (0.0-0.8); MONO % 12.5 % (0.0-5.0); NEUTROPHILS # 3.3 10^3/uL (1.5-8.5); NEUTROPHILS % 52.5 % (36.0-66.0); PLATELET COUNT, AUTOMATED 228 10^3/uL (150-450); RED BLOOD COUNT 4.05 10^6/uL (4.00-5.40); WHITE BLOOD COUNT 6.3 10^3/uL (4.0-10.0)
[2019-06-28 19:49] LABS: APPEARANCE, URINE CLEAR (CLEAR); BACTERIA, URINE AUTO NEGATIVE (NEGATIVE); BILIRUBIN, URINE AUTO NEGATIVE (NEGATIVE); BLOOD, URINE BLOOD NEGATIVE (NEGATIVE); COLOR, URINE STRAW (YELLOW); GLUCOSE, URINE (UA) AUTO NEGATIVE (NEGATIVE); KETONE, URINE AUTO NEGATIVE (NEGATIVE); LEUKOCYTE ESTERASE, URINE AUTO 1+ (NEGATIVE); NITRITE, URINE AUTO NEGATIVE (NEGATIVE); PROTEIN, URINE AUTO NEGATIVE (NEGATIVE); RBC, URINE AUTO 1 /HPF (0-3); SPECIFIC GRAVITY URINE AUTO 1.004 (1.002-1.035); SQUAMOUS EPITHELIAL CELL UR AU 0 /HPF (0-6); UROBILINOGEN, URINE AUTO 0.2 mg/dL (0.0-2.0); WBC, URINE AUTO 10 /HPF (0-3)
[2019-06-28 20:03] LABS: INR 1.13; PROTHROMBIN TIME 14.2 SECONDS (11.8-14.0)
[2019-06-28 20:04] LABS: PARTIAL THROMBOPLASTIN TIME 29.5 SECONDS (25.0-38.4)
[2019-06-28 20:06] LABS: BLOOD UREA NITROGEN 23 MG/DL (7-18); CALCIUM LEVEL 8.6 MG/DL (8.8-10.2); CARBON DIOXIDE LEVEL 27 MEQ/L (21-32); CHLORIDE LEVEL 103 MEQ/L (98-107); CK-MB VALUE MASS 1.5 NG/ML (<3.6); CPK CREATINE PHOSPHOKINASE 76 U/L (26-192); CREATININE FOR GFR 0.94 MG/DL (0.55-1.30); GLOMERULAR FILTRATION RATE > 60.0 (>39); GLUCOSE, FASTING 91 MG/DL (70-100); MB/CK RELATIVE INDEX 1.97 (< OR =4); POTASSIUM SERUM 3.6 MEQ/L (3.5-5.1); SODIUM LEVEL 139 MEQ/L (136-145); TROPONIN I < 0.02 NG/ML (< 0.10)
--- NOTE | 2019-06-28 20:11 | REPVR ---
PROCEDURE INFORMATION: Exam: CT Head Without Contrast Exam date and time: 06/28/2019 6:35 PM Clinical history: 79 years old, female; Other: Poss CVA; Additional info: CVA - nursing interventions must not delay CT TECHNIQUE: Imaging protocol: Computed tomography of the head without contrast. Radiation optimization: All CT scans at this facility use at least one of these dose optimization techniques: automated exposure control; mA and/or kV adjustment per patient size (includes targeted exams where dose is matched to clinical indication); or iterative reconstruction. COMPARISON: CT Head without contrast 05/27/2019 8:14 PM FINDINGS: Brain: Chronic lacunar infarcts in bilateral basal ganglia. Chronic infarct in the right basal ganglia. There are moderate periventricular and subcortical lucencies consistent with chronic microvascular ischemic changes. Ventricles: Ventricles and sulci are prominent consistent with age appropriate parenchymal volume loss. Bones/joints: Unremarkable. No acute fracture. Sinuses: Visualized sinuses are unremarkable. No fluid levels. Mastoid air cells: The mastoid sinuses are normal. Orbits: Bilateral cataract surgery. Soft tissues: Unremarkable. IMPRESSION: No acute intracranial abnormality. Chronic microvascular ischemic changes. Electronically signed by: Nato Nagel On 06/28/2019 20:11:44 PM
[2019-06-28] MEDS ORDERED: CIPR-249 PO (21:43)
[2019-06-28] MEDS ORDERED: CIPROFLOXACIN 250 MG TAB PO ONE (21:45)
[2019-06-28 22:13] VITALS: BP 135/68
--- NOTE | 2019-06-29 20:33 | ECGEPIP ---
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
== END 2019-06-28 22:41 | disposition home or self-care (01) ==
LOC: M ED 17:39
DX: N39.0 Urinary tract infection, site not specified (principal); K21.9 Gastro-esophageal reflux disease without esophagitis; H40.9 Unspecified glaucoma; E78.5 Hyperlipidemia, unspecified; E03.9 Hypothyroidism, unspecified; I10 Essential (primary) hypertension; K58.9 Irritable bowel syndrome, unspecified; R32 Unspecified urinary incontinence; Z88.0 Allergy status to penicillin; Z88.5 Allergy status to narcotic agent; Z88.8 Allergy status to other drugs, medicaments and biological substances; Z79.899 Other long term (current) drug therapy

== ENCOUNTER 2019-07-02 13:07 | Emergency (ER) | payer MEDICAID, MEDICARE ==
[~2019-07-02] VITALS: Ht 154.9 cm; Wt 49.1 kg
[~2019-07-02 13:07] MED LIST changes: +CIPR-249 PO
--- NOTE | 2019-07-02 14:15 | REP ---
CHEST, SINGLE VIEW: COMPARISON: 06/28/2019. There is no evidence of acute infiltrate. No pleural effusion is seen. The heart is normal in size. The mediastinal silhouette is unremarkable. The visualized osseous structures are intact. There are degenerative changes of the spine. IMPRESSION: No acute pulmonary disease. Electronically Signed by Gilbert Jo MD 07/06/2019 08:52 A
[2019-07-02 14:22] LABS: BASO # 0.1 10^3/uL (0.0-0.2); BASO % 1.4 % (0.0-1.0); EOS # 0.3 10^3/uL (0.0-0.5); EOS % 5.2 % (0.0-3.0); HEMATOCRIT 33.5 % (36.0-47.0); HEMOGLOBIN 11.3 g/dl (12.0-15.5); LYMPH # 1.3 10^3/uL (1.5-5.0); LYMPH % 26.7 % (24.0-44.0); MEAN CORPUSCULAR HEMOGLOBIN 30.1 pg (27.0-33.0); MEAN CORPUSCULAR HGB CONC 33.7 g/dl (32.0-36.5); MEAN CORPUSCULAR VOLUME 89.3 fl (80.0-96.0); MONO # 0.7 10^3/uL (0.0-0.8); MONO % 13.1 % (0.0-5.0); NEUTROPHILS # 2.7 10^3/uL (1.5-8.5); NEUTROPHILS % 53.4 % (36.0-66.0); PLATELET COUNT, AUTOMATED 215 10^3/uL (150-450); RED BLOOD COUNT 3.75 10^6/uL (4.00-5.40)
[2019-07-02] MEDS ORDERED: FAMO1TAB11 PO (14:48)
[2019-07-02] MEDS ORDERED: SUCR1SS PO (14:48)
[2019-07-02 15:07] LABS: BLOOD UREA NITROGEN 15 MG/DL (7-18); CALCIUM LEVEL 8.5 MG/DL (8.8-10.2); CARBON DIOXIDE LEVEL 28 MEQ/L (21-32); CHLORIDE LEVEL 105 MEQ/L (98-107); CK-MB VALUE MASS < 1.0 NG/ML (<3.6); CPK CREATINE PHOSPHOKINASE 74 U/L (26-192); CREATININE FOR GFR 0.83 MG/DL (0.55-1.30); FREE T4 1.07 NG/DL (0.76-1.46); GLOMERULAR FILTRATION RATE > 60.0 (>39); GLUCOSE, FASTING 99 MG/DL (70-100); MAGNESIUM LEVEL 2.1 MG/DL (1.8-2.4); MB/CK RELATIVE INDEX 1.35 (< OR =4); SODIUM LEVEL 139 MEQ/L (136-145); THYROID STIMULATING HORMONE 0.438 uIU/ML (0.358-3.740); TROPONIN I < 0.02 NG/ML (< 0.10)
[2019-07-02] MEDS ORDERED: IPRATROPIUM 0.5MG/ALBUTEROL 2.5MG INH SOL UD 3ML (DUONEB)(J7620) As Ordered ONE (15:22)
[2019-07-02] MEDS ORDERED: NS 500 ML IV ONE (15:30)
[2019-07-02 17:30] VITALS: BP 155/69
--- NOTE | 2019-07-02 19:05 | ECGEPIP ---
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
== END 2019-07-02 18:41 | disposition home or self-care (01) ==
LOC: M ED 13:07
DX: I10 Essential (primary) hypertension (principal); G45.9 Transient cerebral ischemic attack, unspecified; K21.9 Gastro-esophageal reflux disease without esophagitis; E78.5 Hyperlipidemia, unspecified; Z87.891 Personal history of nicotine dependence; Z88.0 Allergy status to penicillin; Z88.1 Allergy status to other antibiotic agents; Z88.6 Allergy status to analgesic agent; Z79.899 Other long term (current) drug therapy; Z79.82 Long term (current) use of aspirin

== ENCOUNTER → 2019-08-10 | Outpatient (CLI) | payer MEDICARE, MEDICAID ==
[~2019-08-10] MED LIST changes: +FAMO1TAB11 PO; +SUCR1SS PO
[2019-08-10 18:08] LABS: BASO # 0.1 10^3/uL (0.0-0.2); BASO % 1.2 % (0.0-1.0); EOS # 0.2 10^3/uL (0.0-0.5); EOS % 4.3 % (0.0-3.0); HEMOGLOBIN 10.1 g/dl (12.0-15.5); LYMPH # 1.2 10^3/uL (1.5-5.0); LYMPH % 28.6 % (24.0-44.0); MEAN CORPUSCULAR HEMOGLOBIN 29.4 pg (27.0-33.0); MEAN CORPUSCULAR HGB CONC 31.6 g/dl (32.0-36.5); MONO # 0.4 10^3/uL (0.0-0.8); MONO % 10.1 % (0.0-5.0); NEUTROPHILS # 2.3 10^3/uL (1.5-8.5); NEUTROPHILS % 55.6 % (36.0-66.0); PLATELET COUNT, AUTOMATED 211 10^3/uL (150-450); RED BLOOD COUNT 3.44 10^6/uL (4.00-5.40); WHITE BLOOD COUNT 4.2 10^3/uL (4.0-10.0)
[2019-08-10 18:34] LABS: BLOOD UREA NITROGEN 21 MG/DL (7-18); CALCIUM LEVEL 8.8 MG/DL (8.8-10.2); CARBON DIOXIDE LEVEL 27 MEQ/L (21-32); CHLORIDE LEVEL 106 MEQ/L (98-107); CREATININE FOR GFR 0.88 MG/DL (0.55-1.30); FREE T4 0.96 NG/DL (0.76-1.46); GLOMERULAR FILTRATION RATE > 60.0 (>39); GLUCOSE, FASTING 81 MG/DL (70-100); POTASSIUM SERUM 4.1 MEQ/L (3.5-5.1); SODIUM LEVEL 141 MEQ/L (136-145); THYROID STIMULATING HORMONE 0.663 uIU/ML (0.358-3.740)
== END ==
LOC: M WUC 11:37
PROVIDERS: ATTEND Physician Assistant
DX: K21.9 Gastro-esophageal reflux disease without esophagitis (principal); E03.9 Hypothyroidism, unspecified

== ENCOUNTER → 2019-08-18 | Outpatient (REF) | payer MEDICARE, MEDICAID | LOC: M LAB REF 17:24 | PROVIDERS: ATTEND Family Medicine | DX: R35.0 Frequency of micturition (principal) ==

== ENCOUNTER → 2020-04-26 | Outpatient (REF) | payer MEDICARE, MEDICAID ==
[~2020-04-26] MED LIST changes: +AMLO1TAB24 PO; -AMLO5TAB6 PO; -LISI20TA19 PO; +LISI20TA35 PO; +OMEP1CAP73 PO; -OMEP20CA4 PO; -SUCR10SS PO; +SUCR1ORA2 PO
== END ==
LOC: M LAB REF 16:40
PROVIDERS: ATTEND Dermatology
DX: C44.42 Squamous cell carcinoma of skin of scalp and neck (principal)
CPT/HCPCS: 88305; G0463

== ENCOUNTER → 2020-06-01 | Outpatient (REF) | payer MEDICARE, MEDICAID | LOC: M LAB REF 16:32 | PROVIDERS: ATTEND Dermatology | DX: L57.8 Other skin changes due to chronic exposure to nonionizing radiation (principal) ==

== ENCOUNTER → 2020-08-24 | Outpatient (REF) | payer MEDICARE, MEDICAID | LOC: M SMT 16:47 | PROVIDERS: ATTEND Urology | DX: N39.41 Urge incontinence (principal) | CPT/HCPCS: 51798; 87086; G0463 ==

== ENCOUNTER → 2020-08-30 | Outpatient (CLI) | payer MEDICARE, MEDICAID ==
[2020-08-30 13:48] LABS: BASO # 0.1 10^3/uL (0.0-0.2); BASO % 1.4 % (0.0-1.0); EOS # 0.2 10^3/uL (0.0-0.5); EOS % 3.8 % (0.0-3.0); HEMATOCRIT 33.3 % (36.0-47.0); HEMOGLOBIN 10.5 g/dl (12.0-15.5); LYMPH # 1.7 10^3/uL (1.5-5.0); LYMPH % 39.8 % (24.0-44.0); MEAN CORPUSCULAR HEMOGLOBIN 29.1 pg (27.0-33.0); MEAN CORPUSCULAR HGB CONC 31.5 g/dl (32.0-36.5); MEAN CORPUSCULAR VOLUME 92.2 fl (80.0-96.0); MONO # 0.6 10^3/uL (0.0-0.8); MONO % 13.9 % (0.0-5.0); NEUTROPHILS # 1.7 10^3/uL (1.5-8.5); NEUTROPHILS % 41.1 % (36.0-66.0); PLATELET COUNT, AUTOMATED 261 10^3/uL (150-450); RED BLOOD COUNT 3.61 10^6/uL (4.00-5.40); WHITE BLOOD COUNT 4.2 10^3/uL (4.0-10.0)
[2020-08-30 14:24] LABS: ALBUMIN 3.8 GM/DL (3.2-5.2); ALT/SGPT 24 U/L (12-78); BILIRUBIN,TOTAL 0.8 MG/DL (0.2-1.0); BLOOD UREA NITROGEN 13 MG/DL (7-18); CALCIUM LEVEL 9.2 MG/DL (8.8-10.2); CARBON DIOXIDE LEVEL 30 MEQ/L (21-32); CHLORIDE LEVEL 103 MEQ/L (98-107); CREATININE FOR GFR 0.76 MG/DL (0.55-1.30); FREE T4 0.92 NG/DL (0.76-1.46); GLOMERULAR FILTRATION RATE > 60.0 (>39); GLUCOSE, FASTING 84 MG/DL (70-100); IRON (FE) 78 UG/DL (50-170); PERCENT SATURATION 27.5 % (13.2-45.0); POTASSIUM SERUM 4.2 MEQ/L (3.5-5.1); SODIUM LEVEL 137 MEQ/L (136-145); TOTAL 25(OH) VITAMIN D 17.3 NG/ML (30.0-100.0); TOTAL IRON BINDING CAPACITY 284 UG/DL (250-450); TOTAL PROTEIN 6.5 GM/DL (6.4-8.2)
== END ==
LOC: M PLALAB 08:43
PROVIDERS: ATTEND Physician Assistant
DX: D64.9 Anemia, unspecified (principal); E03.9 Hypothyroidism, unspecified; R53.83 Other fatigue; Z79.899 Other long term (current) drug therapy

== ENCOUNTER 2021-01-03 08:48 | Emergency (ER) | payer MEDICARE, MEDICAID ==
[~2021-01-03] VITALS: Ht 154.9 cm; Wt 50.9 kg
[~2021-01-03 08:48] MED LIST changes: +ASPI-569 PO; -ASPI81TAEC PO; +LISI10TA22 PO; -LISI10TA4 PO
--- NOTE | 2021-01-03 09:31 | REP ---
INDICATION: trauma. COMPARISON: No prior similar studies TECHNIQUE: Axial CT images with multiplanar reformations. FINDINGS: There is a hyperdense collection on the left, within left-sided sulci, consistent with acute hemorrhage. There is age-related volume loss and extensive white matter change. No fracture. Ventricles, cisterns and sulci within normal limits. No mass effect or midline shift. Scattered ill-defined low-attenuation areas are consistent with the sequelae of chronic microvascular ischemic disease. Paranasal sinuses and mastoid air cells are clear. Hematoma noted over the left forehead. IMPRESSION: Subarachnoid hemorrhage on the left. No fracture or mass effect. Age-related volume loss and white matter changes. Findings communicated to Arlene Crawley in the ED at the time of interpretation. <Electronically signed by Ahmet Maxwell > 01/03/21 [id number]
[2021-01-03] MEDS ORDERED: ACET-683 PO (09:33)
[2021-01-03] MEDS ORDERED: PRED10TA2 PO (09:33)
[2021-01-03] MEDS ORDERED: BIMA01SOL OU (09:33)
[2021-01-03] MEDS ORDERED: SPIR-10 PO (09:33)
[2021-01-03] MEDS ORDERED: OMEP-218 PO (09:33)
[2021-01-03] MEDS ORDERED: NITR-67 PO (09:33)
[2021-01-03] MEDS ORDERED: SYST1SOL OP (09:33)
[2021-01-03] MEDS ORDERED: HYDR-643 PO (09:33)
--- NOTE | 2021-01-03 09:34 | REP ---
INDICATION: trauma. COMPARISON: None. TECHNIQUE: Axial CT images with multiplanar reformations. FINDINGS: No fracture or malalignment. No significant canal or foraminal stenosis. Only minor degenerative change, perhaps greatest at C2-3 right facet joint. The osseous structures appear demineralized. IMPRESSION: No fracture or malalignment. Degenerative change is mild for age. Diffuse osteoporosis. <Electronically signed by Ahmet Maxwell > 01/03/21 [id number]
[2021-01-03 09:48] LABS: HEMATOCRIT 33.5 % (36.0-47.0); HEMOGLOBIN 10.9 g/dl (12.0-15.5); MEAN CORPUSCULAR HEMOGLOBIN 28.8 pg (27.0-33.0); MEAN CORPUSCULAR HGB CONC 32.5 g/dl (32.0-36.5); MEAN CORPUSCULAR VOLUME 88.6 fl (80.0-96.0); PLATELET COUNT, AUTOMATED 273 10^3/uL (150-450); RED BLOOD COUNT 3.78 10^6/uL (4.00-5.40); WHITE BLOOD COUNT 6.1 10^3/uL (4.0-10.0)
[2021-01-03 09:57] LABS: INR 0.92; PROTHROMBIN TIME 12.6 SECONDS (12.5-14.3)
[2021-01-03] MEDS ORDERED: LABETALOL 100MG/20ML VIAL IV PRN (10:05)
[2021-01-03] MEDS ORDERED: NS 1,000 ML IV SCH (10:05)
[2021-01-03 10:14] LABS: ALBUMIN 3.5 GM/DL (3.2-5.2); ALT/SGPT 23 U/L (12-78); BILIRUBIN,TOTAL 1.1 MG/DL (0.2-1.0); BLOOD UREA NITROGEN 11 MG/DL (7-18); CARBON DIOXIDE LEVEL 29 MEQ/L (21-32); CHLORIDE LEVEL 101 MEQ/L (98-107); CREATININE FOR GFR 0.63 MG/DL (0.55-1.30); GLOMERULAR FILTRATION RATE > 60.0 (>39); GLUCOSE, FASTING 98 MG/DL (70-100); POTASSIUM SERUM 4.6 MEQ/L (3.5-5.1); SODIUM LEVEL 135 MEQ/L (136-145); TOTAL PROTEIN 6.3 GM/DL (6.4-8.2)
[2021-01-03 10:28] LABS: RSV AMPLIFICATION NEGATIVE (NEGATIVE)
[2021-01-03 10:59] VITALS: BP 151/72
[2021-01-03] MEDS ORDERED: ACETAMINOPHEN 500 MG TAB PO ONE (11:00)
[2021-01-03 11:01] VITALS: BP 151/72
[2021-01-03 11:18] LABS: CPK CREATINE PHOSPHOKINASE 66 U/L (26-192)
--- NOTE | 2021-01-04 10:07 | ECGEPIP ---
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
== END 2021-01-03 11:14 | disposition short-term general hospital (02) ==
LOC: M ED 08:48
DX: S06.6X0A Traumatic subarachnoid hemorrhage without loss of consciousness, initial encounter (principal); W19.XXXA Unspecified fall, initial encounter; J45.909 Unspecified asthma, uncomplicated; E78.5 Hyperlipidemia, unspecified; E03.9 Hypothyroidism, unspecified; Z79.01 Long term (current) use of anticoagulants; Z79.52 Long term (current) use of systemic steroids; Z79.899 Other long term (current) drug therapy; Z87.891 Personal history of nicotine dependence; Z88.0 Allergy status to penicillin; Z88.6 Allergy status to analgesic agent; Y92.009 Unspecified place in unspecified non-institutional (private) residence as the place of occurrence of the external cause; Y93.9 Activity, unspecified; Y99.9 Unspecified external cause status

== ENCOUNTER 2021-01-06 15:47 | Emergency (ER) | payer MEDICARE ==
[~2021-01-06] VITALS: Ht 154.9 cm; Wt 51.2 kg
[~2021-01-06 15:47] MED LIST changes: +ACET-683 PO; +HYDR-643 PO; +NITR-67 PO; +PRED10TA2 PO; +SPIR-10 PO; +SYST1SOL OP
[2021-01-06] MEDS ORDERED: ONDANSETRON 4MG/2ML VIAL IV ONE (16:30)
[2021-01-06] MEDS ORDERED: ATOR40TA75 PO (16:59)
[2021-01-06] MEDS ORDERED: SYNT50TA PO (16:59)
[2021-01-06] MEDS ORDERED: DONE5TAB82 PO (16:59)
[2021-01-06] MEDS ORDERED: SERT25TA21 PO (16:59)
[2021-01-06 17:04] LABS: BASO % 0.5 % (0.0-1.0); EOS % 0.6 % (0.0-3.0); HEMOGLOBIN 10.6 g/dl (12.0-15.5); LYMPH % 15.4 % (24.0-44.0); MEAN CORPUSCULAR HEMOGLOBIN 29.6 pg (27.0-33.0); MEAN CORPUSCULAR HGB CONC 35.3 g/dl (32.0-36.5); MEAN CORPUSCULAR VOLUME 83.8 fl (80.0-96.0); MONO # 0.5 10^3/uL (0.0-0.8); MONO % 7.6 % (2.0-8.0); NEUTROPHILS # 4.6 10^3/uL (1.5-8.5); NEUTROPHILS % 75.3 % (36.0-66.0); PLATELET COUNT, AUTOMATED 283 10^3/uL (150-450); RED BLOOD COUNT 3.58 10^6/uL (4.00-5.40); WHITE BLOOD COUNT 6.2 10^3/uL (4.0-10.0)
--- NOTE | 2021-01-06 17:10 | REP ---
INDICATION: intracranial bleed. COMPARISON: Comparison head CT studies are reviewed from January 04, 2020 and June 28, 2019.. TECHNIQUE: Helical scanning is acquired. 5 mm axial images were reformatted. Coronal MPR images were generated. FINDINGS: Digital preliminary grievance and appeals specialist radiograph demonstrates S frontal scalp swelling on the lateral view. This consistent with hematoma and was noted previously. No skull fracture is seen. There is some vascular calcification in the distal internal carotid arteries. Visualized paranasal sinus rim remain clear. On soft tissue window settings, the previously noted area of subarachnoid hemorrhage along the the upper portion of the sylvian fissure on the left is again seen. This appears to be slightly more extensive than it did on the study done 3 days prior 01/03/2021. There is no evidence of subdural or epidural hematoma. No parenchymal hemorrhage is seen. There is fairly extensive small-vessel atherosclerotic change again noted. There are 2 areas of low density in the right basal ganglia consistent with old lacunar infarcts. These are unchanged from the January 03, 2021 and June 28, 2019 study. No new area of infarction is seen. No extra-axial fluid collection is observed. IMPRESSION: A small area of subarachnoid hemorrhage is again seen in the left sylvian fissure. This is slightly more extensive than it was on the January 03, 2021 study. Frontal scalp hematoma is again seen. No fracture is noted. No extra-axial fluid collection or parenchymal hemorrhage is seen. Old lacunar infarcts on the right and small vessel changes again noted.. <Electronically signed by Guero Kaur > 01/06/21 [id number]
[2021-01-06 17:43] LABS: ALBUMIN 3.3 GM/DL (3.2-5.2); ALT/SGPT 18 U/L (12-78); BLOOD UREA NITROGEN 10 MG/DL (7-18); CALCIUM LEVEL 8.4 MG/DL (8.8-10.2); CARBON DIOXIDE LEVEL 24 MEQ/L (21-32); CHLORIDE LEVEL 85 MEQ/L (98-107); CREATININE FOR GFR 0.59 MG/DL (0.55-1.30); GLOMERULAR FILTRATION RATE > 60.0 (>39); GLUCOSE, FASTING 121 MG/DL (70-100); POTASSIUM SERUM 3.6 MEQ/L (3.5-5.1); SODIUM LEVEL 117 MEQ/L (136-145); TOTAL PROTEIN 5.8 GM/DL (6.4-8.2)
[2021-01-06] MEDS ORDERED: niCARdipine IV 40 MG in IV 1 EA IV SCH (18:00)
[2021-01-06] MEDS ORDERED: NS 1,000 ML IV SCH (18:15)
[2021-01-06] MEDS ORDERED: MILK400S19 PO (18:33)
[2021-01-06] MEDS ORDERED: BISA10SU27 PR (18:33)
[2021-01-06 18:37] LABS: BLOOD UREA NITROGEN 10 MG/DL (7-18); CALCIUM LEVEL 8.2 MG/DL (8.8-10.2); CARBON DIOXIDE LEVEL 25 MEQ/L (21-32); CHLORIDE LEVEL 86 MEQ/L (98-107); CREATININE FOR GFR 0.58 MG/DL (0.55-1.30); GLOMERULAR FILTRATION RATE > 60.0 (>39); GLUCOSE, FASTING 134 MG/DL (70-100); POTASSIUM SERUM 3.4 MEQ/L (3.5-5.1); SODIUM LEVEL 118 MEQ/L (136-145)
[2021-01-06 18:55] VITALS: BP 135/62
== END 2021-01-06 19:05 | disposition short-term general hospital (02) ==
LOC: EDBD 15:47 → M ED 15:47
DX: S06.6X0A Traumatic subarachnoid hemorrhage without loss of consciousness, initial encounter (principal); W19.XXXA Unspecified fall, initial encounter; Y92.019 Unspecified place in single-family (private) house as the place of occurrence of the external cause; Y93.9 Activity, unspecified; Y99.9 Unspecified external cause status; E87.1 Hypo-osmolality and hyponatremia; J45.909 Unspecified asthma, uncomplicated; E78.5 Hyperlipidemia, unspecified; E03.9 Hypothyroidism, unspecified; Z79.01 Long term (current) use of anticoagulants; Z79.52 Long term (current) use of systemic steroids; Z79.891 Long term (current) use of opiate analgesic; Z79.899 Other long term (current) drug therapy; Z88.0 Allergy status to penicillin; Z88.6 Allergy status to analgesic agent
CPT/HCPCS: 70450; 80047; 80048; 80053; 85025; 87798; 93041; 96365; 96375; 99285; J2405

== ENCOUNTER → 2021-01-08 | Outpatient (REF) ==
[~2021-01-08] MED LIST changes: +BISA10SU27 PR; +DONE5TAB82 PO; +MILK400S19 PO; +SERT25TA21 PO
== END ==
LOC: SKLAB3 07:00
PROVIDERS: ATTEND Internal Medicine
DX: Z53.8 Procedure and treatment not carried out for other reasons (principal)

== ENCOUNTER → 2021-01-09 | Outpatient (REF) | LOC: SKLAB3 12:00 | PROVIDERS: ATTEND Internal Medicine | DX: Z53.8 Procedure and treatment not carried out for other reasons (principal) ==

== ENCOUNTER → 2021-01-16 | Outpatient (REF) ==
[2021-01-16 09:05] LABS: HEMATOCRIT 32.4 % (36.0-47.0); HEMOGLOBIN 10.5 g/dl (12.0-15.5); MEAN CORPUSCULAR HEMOGLOBIN 29.6 pg (27.0-33.0); MEAN CORPUSCULAR HGB CONC 32.4 g/dl (32.0-36.5); MEAN CORPUSCULAR VOLUME 91.3 fl (80.0-96.0); PLATELET COUNT, AUTOMATED 325 10^3/uL (150-450); RED BLOOD COUNT 3.55 10^6/uL (4.00-5.40); WHITE BLOOD COUNT 4.5 10^3/uL (4.0-10.0)
[2021-01-16 09:33] LABS: BLOOD UREA NITROGEN 7 MG/DL (7-18); CALCIUM LEVEL 8.8 MG/DL (8.8-10.2); CARBON DIOXIDE LEVEL 30 MEQ/L (21-32); CHLORIDE LEVEL 103 MEQ/L (98-107); GLOMERULAR FILTRATION RATE > 60.0 (>39); GLUCOSE, FASTING 150 MG/DL (70-100); POTASSIUM SERUM 3.9 MEQ/L (3.5-5.1); SODIUM LEVEL 138 MEQ/L (136-145)
== END ==
LOC: SKLAB3 07:00
PROVIDERS: ATTEND Internal Medicine
DX: E87.1 Hypo-osmolality and hyponatremia (principal); D64.9 Anemia, unspecified

== ENCOUNTER → 2021-01-23 | Outpatient (REF) | payer MEDICARE ==
[2021-01-23 08:25] LABS: HEMATOCRIT 31.7 % (36.0-47.0); MEAN CORPUSCULAR HEMOGLOBIN 29.1 pg (27.0-33.0); MEAN CORPUSCULAR HGB CONC 31.5 g/dl (32.0-36.5); MEAN CORPUSCULAR VOLUME 92.2 fl (80.0-96.0); PLATELET COUNT, AUTOMATED 288 10^3/uL (150-450); RED BLOOD COUNT 3.44 10^6/uL (4.00-5.40); WHITE BLOOD COUNT 4.5 10^3/uL (4.0-10.0)
[2021-01-23 08:57] LABS: BLOOD UREA NITROGEN 8 MG/DL (7-18); CALCIUM LEVEL 8.4 MG/DL (8.8-10.2); CARBON DIOXIDE LEVEL 28 MEQ/L (21-32); CHLORIDE LEVEL 108 MEQ/L (98-107); CREATININE FOR GFR 0.68 MG/DL (0.55-1.30); GLOMERULAR FILTRATION RATE > 60.0 (>39); GLUCOSE, FASTING 78 MG/DL (70-100); POTASSIUM SERUM 4.1 MEQ/L (3.5-5.1); SODIUM LEVEL 140 MEQ/L (136-145)
== END ==
LOC: SKLAB3 07:00
PROVIDERS: ATTEND Internal Medicine
DX: I10 Essential (primary) hypertension (principal); D64.9 Anemia, unspecified

== ENCOUNTER → 2021-01-30 | Outpatient (REF) | payer MEDICARE ==
[2021-01-30 09:03] LABS: HEMATOCRIT 30.6 % (36.0-47.0); HEMOGLOBIN 9.8 g/dl (12.0-15.5); MEAN CORPUSCULAR HEMOGLOBIN 29.7 pg (27.0-33.0); MEAN CORPUSCULAR VOLUME 92.7 fl (80.0-96.0); PLATELET COUNT, AUTOMATED 247 10^3/uL (150-450)
[2021-01-30 09:22] LABS: BLOOD UREA NITROGEN 10 MG/DL (7-18); CALCIUM LEVEL 8.6 MG/DL (8.8-10.2); CARBON DIOXIDE LEVEL 29 MEQ/L (21-32); CHLORIDE LEVEL 109 MEQ/L (98-107); CREATININE FOR GFR 0.71 MG/DL (0.55-1.30); GLOMERULAR FILTRATION RATE > 60.0 (>32); GLUCOSE, FASTING 75 MG/DL (70-100); POTASSIUM SERUM 4.3 MEQ/L (3.5-5.1); SODIUM LEVEL 143 MEQ/L (136-145)
== END ==
LOC: SKLAB7 07:00
PROVIDERS: ATTEND Internal Medicine
DX: D64.9 Anemia, unspecified (principal); I50.9 Heart failure, unspecified

== ENCOUNTER → 2021-02-06 | Outpatient (REF) | payer MEDICARE ==
[2021-02-06 09:32] LABS: BLOOD UREA NITROGEN 10 MG/DL (7-18); CALCIUM LEVEL 8.6 MG/DL (8.8-10.2); CARBON DIOXIDE LEVEL 30 MEQ/L (21-32); CHLORIDE LEVEL 107 MEQ/L (98-107); CREATININE FOR GFR 0.65 MG/DL (0.55-1.30); GLOMERULAR FILTRATION RATE > 60.0 (>32); GLUCOSE, FASTING 105 MG/DL (70-100); POTASSIUM SERUM 3.9 MEQ/L (3.5-5.1); SODIUM LEVEL 140 MEQ/L (136-145)
== END ==
LOC: SKLAB7 07:00
PROVIDERS: ATTEND Internal Medicine
DX: D64.9 Anemia, unspecified (principal)

== ENCOUNTER → 2021-03-06 | Outpatient (REF) | payer MEDICARE ==
[2021-03-06 08:41] LABS: BLOOD UREA NITROGEN 11 MG/DL (7-18); CALCIUM LEVEL 8.7 MG/DL (8.8-10.2); CARBON DIOXIDE LEVEL 28 MEQ/L (21-32); CHLORIDE LEVEL 109 MEQ/L (98-107); CREATININE FOR GFR 0.58 MG/DL (0.55-1.30); GLOMERULAR FILTRATION RATE > 60.0 (>32); GLUCOSE, FASTING 80 MG/DL (70-100); POTASSIUM SERUM 4.5 MEQ/L (3.5-5.1); SODIUM LEVEL 141 MEQ/L (136-145)
== END ==
LOC: SKLAB3 07:00
PROVIDERS: ATTEND Internal Medicine
DX: E87.1 Hypo-osmolality and hyponatremia (principal); E03.9 Hypothyroidism, unspecified

== ENCOUNTER → 2021-03-12 | Outpatient (REF) | payer MEDICARE, MEDICAID ==
--- NOTE | 2021-03-12 23:13 | ECGEPIP ---
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 Electronically Signed on 03-12-2021 23:13:37 EDT by Isaiah Escalante
== END ==
LOC: SKLAB3 12:14
PROVIDERS: ATTEND Internal Medicine
DX: I10 Essential (primary) hypertension (principal)

== ENCOUNTER → 2021-04-10 | Outpatient (REF) | payer MEDICARE, MEDICAID ==
[2021-04-10 11:01] LABS: BLOOD UREA NITROGEN 16 MG/DL (7-18); CALCIUM LEVEL 8.6 MG/DL (8.8-10.2); CARBON DIOXIDE LEVEL 31 MEQ/L (21-32); CHLORIDE LEVEL 102 MEQ/L (98-107); CREATININE FOR GFR 0.69 MG/DL (0.55-1.30); GLOMERULAR FILTRATION RATE > 60.0 (>32); GLUCOSE, FASTING 81 MG/DL (70-100); POTASSIUM SERUM 4.3 MEQ/L (3.5-5.1); SODIUM LEVEL 136 MEQ/L (136-145)
== END ==
LOC: SKLAB3 11:09
PROVIDERS: ATTEND Internal Medicine
DX: E87.1 Hypo-osmolality and hyponatremia (principal)

== ENCOUNTER → 2021-05-08 | Outpatient (REF) | payer MEDICARE, MEDICAID ==
[2021-05-08 10:32] LABS: HEMATOCRIT 35.6 % (36.0-47.0); HEMOGLOBIN 11.3 g/dl (12.0-15.5); MEAN CORPUSCULAR HEMOGLOBIN 28.3 pg (27.0-33.0); MEAN CORPUSCULAR HGB CONC 31.7 g/dl (32.0-36.5); MEAN CORPUSCULAR VOLUME 89.2 fl (80.0-96.0); PLATELET COUNT, AUTOMATED 238 10^3/uL (150-450); RED BLOOD COUNT 3.99 10^6/uL (4.00-5.40); WHITE BLOOD COUNT 5.8 10^3/uL (4.0-10.0)
[2021-05-08 11:01] LABS: BLOOD UREA NITROGEN 12 MG/DL (7-18); CARBON DIOXIDE LEVEL 26 MEQ/L (21-32); CHLORIDE LEVEL 106 MEQ/L (98-107); CREATININE FOR GFR 0.82 MG/DL (0.55-1.30); GLOMERULAR FILTRATION RATE > 60.0 (>32); GLUCOSE, FASTING 173 MG/DL (70-100); SODIUM LEVEL 139 MEQ/L (136-145)
== END ==
LOC: SKLAB3 07:00
PROVIDERS: ATTEND Internal Medicine
DX: D64.9 Anemia, unspecified (principal); E87.1 Hypo-osmolality and hyponatremia

== ENCOUNTER → 2021-05-28 | Outpatient (REF) | payer MEDICARE, MEDICAID | LOC: SKLAB3 07:00 | PROVIDERS: ATTEND Internal Medicine | DX: Z20.822 Contact with and (suspected) exposure to COVID-19 (principal) ==

== ENCOUNTER → 2021-07-10 | Outpatient (REF) | payer MEDICARE, MEDICAID ==
[2021-07-10 10:54] LABS: BLOOD UREA NITROGEN 12 MG/DL (7-18); CALCIUM LEVEL 8.7 MG/DL (8.8-10.2); CARBON DIOXIDE LEVEL 29 MEQ/L (21-32); CHLORIDE LEVEL 107 MEQ/L (98-107); GLOMERULAR FILTRATION RATE > 60.0 (>32); GLUCOSE, FASTING 70 MG/DL (70-100); POTASSIUM SERUM 3.9 MEQ/L (3.5-5.1); SODIUM LEVEL 139 MEQ/L (136-145)
== END ==
LOC: SKLAB3 09:22
PROVIDERS: ATTEND Internal Medicine
DX: E87.1 Hypo-osmolality and hyponatremia (principal)

== ENCOUNTER → 2021-07-12 | Outpatient (REF) | payer MEDICARE, MEDICAID | LOC: SKLAB3 07:28 | PROVIDERS: ATTEND Internal Medicine | DX: Z20.822 Contact with and (suspected) exposure to COVID-19 (principal) ==

== ENCOUNTER → 2021-07-16 | Outpatient (REF) | payer MEDICARE, MEDICAID | LOC: SKLAB3 06:59 | PROVIDERS: ATTEND Internal Medicine | DX: Z20.822 Contact with and (suspected) exposure to COVID-19 (principal); Z53.8 Procedure and treatment not carried out for other reasons ==

== ENCOUNTER → 2021-07-19 | Outpatient (REF) | payer MEDICARE, MEDICAID | LOC: SKLAB3 05:41 | PROVIDERS: ATTEND Internal Medicine | DX: Z20.822 Contact with and (suspected) exposure to COVID-19 (principal); Z53.9 Procedure and treatment not carried out, unspecified reason ==

== ENCOUNTER → 2021-07-23 | Outpatient (REF) | payer MEDICARE, MEDICAID | LOC: SKLAB3 06:17 | PROVIDERS: ATTEND Internal Medicine | DX: Z20.822 Contact with and (suspected) exposure to COVID-19 (principal); Z53.9 Procedure and treatment not carried out, unspecified reason ==

== ENCOUNTER → 2021-09-11 | Outpatient (REF) | payer MEDICARE, MEDICAID ==
[2021-09-12 10:45] LABS: APPEARANCE, URINE CLEAR (CLEAR); BACTERIA, URINE AUTO NEGATIVE (NEGATIVE); BILIRUBIN, URINE AUTO NEGATIVE (NEGATIVE); BLOOD, URINE BLOOD 1+ (NEGATIVE); COLOR, URINE COLORLESS (YELLOW); GLUCOSE, URINE (UA) AUTO NEGATIVE (NEGATIVE); KETONE, URINE AUTO NEGATIVE (NEGATIVE); LEUKOCYTE ESTERASE, URINE AUTO NEGATIVE (NEGATIVE); NITRITE, URINE AUTO NEGATIVE (NEGATIVE); PROTEIN, URINE AUTO NEGATIVE (NEGATIVE); RBC, URINE AUTO 0 /HPF (0-3); SPECIFIC GRAVITY URINE AUTO 1.002 (1.002-1.035); SQUAMOUS EPITHELIAL CELL UR AU 0 /HPF (0-6); UROBILINOGEN, URINE AUTO 0.2 mg/dL (0.0-2.0); WBC, URINE AUTO 1 /HPF (0-3)
== END ==
LOC: M LAB REF 10:03
PROVIDERS: ATTEND Family Medicine
DX: N39.42 Incontinence without sensory awareness (principal); R35.0 Frequency of micturition

== ENCOUNTER → 2021-09-24 | Outpatient (REF) | payer MEDICARE, MEDICAID ==
[~2021-09-24] MED LIST changes: -LISI10TA15 PO; +LISI10TA24 PO; +OMEP-173 PO; -OMEP-218 PO
[2021-09-24 11:37] LABS: BASO # 0.1 10^3/uL (0.0-0.2); BASO % 0.8 % (0.0-1.0); EOS # 0.2 10^3/uL (0.0-0.5); EOS % 2.6 % (0.0-3.0); HEMATOCRIT 37.3 % (36.0-47.0); HEMOGLOBIN 11.8 g/dl (12.0-15.5); LYMPH # 1.8 10^3/uL (1.5-5.0); LYMPH % 29.1 % (24.0-44.0); MEAN CORPUSCULAR HGB CONC 31.6 g/dl (32.0-36.5); MEAN CORPUSCULAR VOLUME 88.6 fl (80.0-96.0); MONO # 0.7 10^3/uL (0.0-0.8); MONO % 10.8 % (2.0-8.0); NEUTROPHILS # 3.5 10^3/uL (1.5-8.5); NEUTROPHILS % 56.4 % (36.0-66.0); PLATELET COUNT, AUTOMATED 248 10^3/uL (150-450); RED BLOOD COUNT 4.21 10^6/uL (4.00-5.40); WHITE BLOOD COUNT 6.2 10^3/uL (4.0-10.0)
[2021-09-24 12:19] LABS: ALT/SGPT 24 U/L (12-78); BILIRUBIN,TOTAL 1.1 MG/DL (0.2-1.0); BLOOD UREA NITROGEN 10 MG/DL (7-18); CALCIUM LEVEL 8.7 MG/DL (8.8-10.2); CARBON DIOXIDE LEVEL 30 MEQ/L (21-32); CHLORIDE LEVEL 100 MEQ/L (98-107); CHOLESTEROL LEVEL 132 MG/DL (<200); CHOLESTEROL RISK RATIO 1.808 (<5); CREATININE FOR GFR 0.73 MG/DL (0.55-1.30); FREE T4 0.98 NG/DL (0.76-1.46); GLOMERULAR FILTRATION RATE > 60.0 (>32); GLUCOSE, FASTING 80 MG/DL (70-100); HDL CHOLESTEROL 73 MG/DL (>40); LDL CHOLESTEROL 51 MG/DL (<100); NON-HDL-C 59 MG/DL; POTASSIUM SERUM 3.7 MEQ/L (3.5-5.1); SODIUM LEVEL 135 MEQ/L (136-145); TOTAL 25(OH) VITAMIN D 30.4 NG/ML (30.0-100.0); TOTAL PROTEIN 6.8 GM/DL (6.4-8.2); TRIGLYCERIDES LEVEL 41 MG/DL (<150); VITAMIN B12 LEVEL 470 PG/ML
[2021-09-24 12:20] LABS: FOLATE 15.5 NG/ML
== END ==
PROVIDERS: ATTEND Family Medicine
DX: E03.9 Hypothyroidism, unspecified (principal); I69.315 Cognitive social or emotional deficit following cerebral infarction; R41.82 Altered mental status, unspecified; Z00.00 Encounter for general adult medical examination without abnormal findings; Z79.899 Other long term (current) drug therapy

== ENCOUNTER → 2021-09-27 | Outpatient (REF) | payer MEDICARE, MEDICAID ==
[~2021-09-27] MED LIST changes: -OMEP-173 PO; +OMEP-218 PO
[2021-09-27 14:20] LABS: APPEARANCE, URINE CLEAR (CLEAR); BACTERIA, URINE AUTO 1+ (NEGATIVE); BILIRUBIN, URINE AUTO NEGATIVE (NEGATIVE); BLOOD, URINE BLOOD NEGATIVE (NEGATIVE); COLOR, URINE YELLOW (YELLOW); GLUCOSE, URINE (UA) AUTO NEGATIVE (NEGATIVE); KETONE, URINE AUTO NEGATIVE (NEGATIVE); LEUKOCYTE ESTERASE, URINE AUTO 1+ (NEGATIVE); MUCUS, URINE SMALL (NEGATIVE); NITRITE, URINE AUTO NEGATIVE (NEGATIVE); PROTEIN, URINE AUTO NEGATIVE (NEGATIVE); RBC, URINE AUTO 0 /HPF (0-3); SQUAMOUS EPITHELIAL CELL UR AU 1 /HPF (0-6); TRANSITIONAL EPITHELIAL AUTO 1 /HPF; UROBILINOGEN, URINE AUTO 0.2 mg/dL (0.0-2.0); WBC, URINE AUTO 11 /HPF (0-3)
== END ==
LOC: M LAB REF 13:48
PROVIDERS: ATTEND Physician Assistant
DX: Z00.00 Encounter for general adult medical examination without abnormal findings (principal); I69.315 Cognitive social or emotional deficit following cerebral infarction; R41.82 Altered mental status, unspecified; E03.9 Hypothyroidism, unspecified

== ENCOUNTER → 2021-11-15 | Outpatient (REF) | payer MEDICARE ==
[~2021-11-15] MED LIST changes: +OMEP-173 PO; -OMEP-218 PO
[2021-11-15 14:46] LABS: BLOOD UREA NITROGEN 11 MG/DL (7-18); CALCIUM LEVEL 9.2 MG/DL (8.8-10.2); CARBON DIOXIDE LEVEL 28 MEQ/L (21-32); CHLORIDE LEVEL 103 MEQ/L (98-107); CREATININE FOR GFR 0.81 MG/DL (0.55-1.30); GLOMERULAR FILTRATION RATE > 60.0 (>32); GLUCOSE, FASTING 131 MG/DL (70-100); POTASSIUM SERUM 4.4 MEQ/L (3.5-5.1); SODIUM LEVEL 137 MEQ/L (136-145)
[2021-11-15 15:09] LABS: APPEARANCE, URINE CLEAR (CLEAR); BACTERIA, URINE AUTO NEGATIVE (NEGATIVE); BILIRUBIN, URINE AUTO NEGATIVE (NEGATIVE); BLOOD, URINE BLOOD NEGATIVE (NEGATIVE); GLUCOSE, URINE (UA) AUTO NEGATIVE (NEGATIVE); KETONE, URINE AUTO NEGATIVE (NEGATIVE); LEUKOCYTE ESTERASE, URINE AUTO NEGATIVE (NEGATIVE); NITRITE, URINE AUTO NEGATIVE (NEGATIVE); PROTEIN, URINE AUTO NEGATIVE (NEGATIVE); RBC, URINE AUTO 0 /HPF (0-3); SPECIFIC GRAVITY URINE AUTO 1.008 (1.002-1.035); SQUAMOUS EPITHELIAL CELL UR AU 0 /HPF (0-6); UROBILINOGEN, URINE AUTO 0.2 mg/dL (0.0-2.0); WBC, URINE AUTO 0 /HPF (0-3)
[2021-11-15 15:10] LABS: COLOR, URINE YELLOW (YELLOW)
== END ==
LOC: SKLAB3 12:08
PROVIDERS: ATTEND Internal Medicine
DX: E87.1 Hypo-osmolality and hyponatremia (principal); Z79.899 Other long term (current) drug therapy

== ENCOUNTER → 2022-02-11 | Outpatient (REF) | payer MEDICARE | LOC: SKLAB3 13:33 | PROVIDERS: ATTEND Internal Medicine | DX: R10.9 Unspecified abdominal pain (principal) ==

== ENCOUNTER → 2022-02-12 | Outpatient (REF) | payer MEDICARE ==
[2022-02-12 16:20] LABS: APPEARANCE, URINE CLOUDY (CLEAR); BACTERIA, URINE AUTO 1+ (NEGATIVE); BILIRUBIN, URINE AUTO NEGATIVE (NEGATIVE); BLOOD, URINE BLOOD 2+ (NEGATIVE); COLOR, URINE AMBER (YELLOW); GLUCOSE, URINE (UA) AUTO NEGATIVE (NEGATIVE); KETONE, URINE AUTO NEGATIVE (NEGATIVE); LEUKOCYTE ESTERASE, URINE AUTO NEGATIVE (NEGATIVE); MUCUS, URINE SMALL (NEGATIVE); NITRITE, URINE AUTO NEGATIVE (NEGATIVE); PROTEIN, URINE AUTO 2+ mg/dL (NEGATIVE); RBC, URINE AUTO 23 /HPF (0-3); SPECIFIC GRAVITY URINE AUTO 1.027 (1.002-1.035); SQUAMOUS EPITHELIAL CELL UR AU 3 /HPF (0-6); TRANSITIONAL EPITHELIAL AUTO <1 /HPF; UROBILINOGEN, URINE AUTO 0.2 mg/dL (0.0-2.0); WBC, URINE AUTO 24 /HPF (0-3)
== END ==
LOC: SKLAB3 08:51
PROVIDERS: ATTEND Nurse Practitioner
DX: R19.7 Diarrhea, unspecified (principal); Z79.899 Other long term (current) drug therapy

== ENCOUNTER → 2022-04-02 | Outpatient (REF) ==
[2022-04-02 22:42] LABS: APPEARANCE, URINE CLEAR (CLEAR); BACTERIA, URINE AUTO NEGATIVE (NEGATIVE); BILIRUBIN, URINE AUTO NEGATIVE (NEGATIVE); BLOOD, URINE BLOOD NEGATIVE (NEGATIVE); COLOR, URINE STRAW (YELLOW); GLUCOSE, URINE (UA) AUTO NEGATIVE (NEGATIVE); KETONE, URINE AUTO NEGATIVE (NEGATIVE); LEUKOCYTE ESTERASE, URINE AUTO TRACE (NEGATIVE); MUCUS, URINE SMALL (NEGATIVE); NITRITE, URINE AUTO NEGATIVE (NEGATIVE); PROTEIN, URINE AUTO NEGATIVE (NEGATIVE); RBC, URINE AUTO 0 /HPF (0-3); SPECIFIC GRAVITY URINE AUTO 1.004 (1.002-1.035); SQUAMOUS EPITHELIAL CELL UR AU 0 /HPF (0-6); UROBILINOGEN, URINE AUTO 0.2 mg/dL (0.0-2.0); WBC, URINE AUTO 5 /HPF (0-3)
== END ==
LOC: M LAB 19:36
PROVIDERS: ATTEND Internal Medicine
DX: R41.82 Altered mental status, unspecified (principal)

== ENCOUNTER → 2022-04-19 | Outpatient (REF) | payer MEDICARE | LOC: SKLAB3 12:19 | PROVIDERS: ATTEND Internal Medicine | DX: Z20.822 Contact with and (suspected) exposure to COVID-19 (principal) ==

== ENCOUNTER → 2022-12-19 | Outpatient (REF) | payer MEDICARE ==
[~2022-12-19] MED LIST changes: +CLOP75TA99 PO; -PLAV1TAB2 PO
[2022-12-19 16:31] LABS: APPEARANCE, URINE CLOUDY (CLEAR); BACTERIA, URINE AUTO 3+ (NEGATIVE); BILIRUBIN, URINE AUTO NEGATIVE (NEGATIVE); BLOOD, URINE BLOOD NEGATIVE (NEGATIVE); COLOR, URINE AMBER (YELLOW); GLUCOSE, URINE (UA) AUTO NEGATIVE (NEGATIVE); KETONE, URINE AUTO TRACE mg/dL (NEGATIVE); LEUKOCYTE ESTERASE, URINE AUTO 3+ (NEGATIVE); NITRITE, URINE AUTO NEGATIVE (NEGATIVE); PROTEIN, URINE AUTO 1+ mg/dL (NEGATIVE); RBC, URINE AUTO 82 /HPF (0-3); SPECIFIC GRAVITY URINE AUTO 1.023 (1.002-1.035); SQUAMOUS EPITHELIAL CELL UR AU 0 /HPF (0-6); UROBILINOGEN, URINE AUTO 0.2 mg/dL (0.0-2.0); WBC, URINE AUTO TNTC /HPF (0-3)
== END ==
LOC: SKLAB8 14:56
PROVIDERS: ATTEND Nurse Practitioner Adult Health
DX: R30.9 Painful micturition, unspecified (principal)

== ENCOUNTER → 2023-01-17 | Outpatient (REF) | payer MEDICARE | LOC: SKLAB8 11:16 | PROVIDERS: ATTEND Internal Medicine | DX: M25.552 Pain in left hip (principal); W19.XXXA Unspecified fall, initial encounter; Y92.128 Other place in nursing home as the place of occurrence of the external cause; M17.12 Unilateral primary osteoarthritis, left knee ==

== ENCOUNTER → 2023-02-04 | Outpatient (REF) | payer MEDICARE ==
[2023-02-04 10:03] LABS: HEMATOCRIT 34.5 % (36.0-47.0); HEMOGLOBIN 11.3 g/dl (12.0-15.5); MEAN CORPUSCULAR HGB CONC 32.8 g/dl (32.0-36.5); MEAN CORPUSCULAR VOLUME 88.5 fl (80.0-96.0); PLATELET COUNT, AUTOMATED 242 10^3/uL (150-450); WHITE BLOOD COUNT 5.1 10^3/uL (4.0-10.0)
[2023-02-04 10:26] LABS: ALBUMIN 3.4 G/DL (3.2-5.2); ALKALINE PHOSPHATASE 89 U/L (46-116); ALT/SGPT 18 U/L (7.0-40); AST/SGOT 20 U/L (<34); BILIRUBIN,TOTAL 1.2 MG/DL (0.3-1.2); BLOOD UREA NITROGEN 14 MG/DL (9-23); CALCIUM LEVEL 8.9 MG/DL (8.3-10.6); CARBON DIOXIDE LEVEL 26 MMOL/L (20-31); CHLORIDE LEVEL 107 MMOL/L (98-107); CREATININE FOR GFR 0.81 MG/DL (0.55-1.30); GLOMERULAR FILTRATION RATE > 60.0 (>32); GLUCOSE, FASTING 81 MG/DL (74-106); POTASSIUM SERUM 4.7 MMOL/L (3.5-5.1); SODIUM LEVEL 140 MMOL/L (136-145); TOTAL PROTEIN 6.1 G/DL (5.7-8.2)
== END ==
LOC: SKLAB8 06:26
PROVIDERS: ATTEND Internal Medicine
DX: U07.1 COVID-19 (principal); Z79.899 Other long term (current) drug therapy

== ENCOUNTER → 2023-02-13 | Outpatient (REF) | payer MEDICARE ==
[2023-02-13 09:29] LABS: HEMATOCRIT 37.9 % (36.0-47.0); HEMOGLOBIN 12.2 g/dl (12.0-15.5); MEAN CORPUSCULAR HGB CONC 32.2 g/dl (32.0-36.5); MEAN CORPUSCULAR VOLUME 90.2 fl (80.0-96.0); PLATELET COUNT, AUTOMATED 266 10^3/uL (150-450); WHITE BLOOD COUNT 5.4 10^3/uL (4.0-10.0)
[2023-02-13 09:56] LABS: ALBUMIN 3.7 G/DL (3.2-5.2); ALKALINE PHOSPHATASE 92 U/L (46-116); ALT/SGPT 18 U/L (7.0-40); AST/SGOT 21 U/L (<34); BILIRUBIN,TOTAL 1.1 MG/DL (0.3-1.2); BLOOD UREA NITROGEN 15 MG/DL (9-23); CALCIUM LEVEL 9.1 MG/DL (8.3-10.6); CARBON DIOXIDE LEVEL 30 MMOL/L (20-31); CHLORIDE LEVEL 106 MMOL/L (98-107); CREATININE FOR GFR 0.77 MG/DL (0.55-1.30); GLOMERULAR FILTRATION RATE > 60.0 (>32); GLUCOSE, FASTING 89 MG/DL (74-106); POTASSIUM SERUM 3.8 MMOL/L (3.5-5.1); SODIUM LEVEL 142 MMOL/L (136-145); TOTAL PROTEIN 6.4 G/DL (5.7-8.2)
== END ==
LOC: SKLAB8 07:00
PROVIDERS: ATTEND Internal Medicine
DX: U07.1 COVID-19 (principal); Z79.899 Other long term (current) drug therapy

== ENCOUNTER → 2023-03-13 | Outpatient (REF) | payer MEDICARE ==
[2023-03-13 16:20] LABS: HEMATOCRIT 33.5 % (36.0-47.0); HEMOGLOBIN 10.8 g/dl (12.0-15.5); MEAN CORPUSCULAR HEMOGLOBIN 28.2 pg (27.0-33.0); MEAN CORPUSCULAR HGB CONC 32.2 g/dl (32.0-36.5); MEAN CORPUSCULAR VOLUME 87.5 fl (80.0-96.0); PLATELET COUNT, AUTOMATED 238 10^3/uL (150-450); RED BLOOD COUNT 3.83 10^6/uL (4.00-5.40); WHITE BLOOD COUNT 7.3 10^3/uL (4.0-10.0)
[2023-03-13 16:46] LABS: BLOOD UREA NITROGEN 20 MG/DL (9-23); CALCIUM LEVEL 8.1 MG/DL (8.3-10.6); CARBON DIOXIDE LEVEL 24 MMOL/L (20-31); CHLORIDE LEVEL 103 MMOL/L (98-107); GLOMERULAR FILTRATION RATE > 60.0 (>32); GLUCOSE, FASTING 113 MG/DL (74-106); POTASSIUM SERUM 3.7 MMOL/L (3.5-5.1); SODIUM LEVEL 135 MMOL/L (136-145)
== END ==
LOC: SKLAB8 15:17
PROVIDERS: ATTEND Internal Medicine
DX: R53.1 Weakness (principal)

== ENCOUNTER → 2023-03-14 | Outpatient (REF) | payer MEDICARE ==
[2023-03-14 14:08] LABS: APPEARANCE, URINE HAZY (CLEAR); BACTERIA, URINE AUTO 2+ (NEGATIVE); BILIRUBIN, URINE AUTO NEGATIVE (NEGATIVE); BLOOD, URINE BLOOD NEGATIVE (NEGATIVE); COLOR, URINE YELLOW (YELLOW); GLUCOSE, URINE (UA) AUTO NEGATIVE (NEGATIVE); KETONE, URINE AUTO NEGATIVE (NEGATIVE); LEUKOCYTE ESTERASE, URINE AUTO 1+ (NEGATIVE); MUCUS, URINE SMALL (NEGATIVE); NITRITE, URINE AUTO POSITIVE (NEGATIVE); PROTEIN, URINE AUTO NEGATIVE (NEGATIVE); RBC, URINE AUTO 1 /HPF (0-3); SPECIFIC GRAVITY URINE AUTO 1.008 (1.002-1.035); SQUAMOUS EPITHELIAL CELL UR AU 2 /HPF (0-6); UROBILINOGEN, URINE AUTO 0.2 mg/dL (0.0-2.0); WBC, URINE AUTO 5 /HPF (0-3)
== END ==
LOC: SKLAB8 13:17
PROVIDERS: ATTEND Nurse Practitioner
DX: R53.1 Weakness (principal)

== ENCOUNTER → 2023-03-20 | Outpatient (REF) | payer MEDICARE | LOC: SKLAB8 10:49 | PROVIDERS: ATTEND Nurse Practitioner Adult Health | DX: M16.12 Unilateral primary osteoarthritis, left hip (principal); M25.551 Pain in right hip; W19.XXXA Unspecified fall, initial encounter; Y92.128 Other place in nursing home as the place of occurrence of the external cause ==

== ENCOUNTER → 2023-04-13 | Outpatient (REF) | payer MEDICARE ==
[2023-04-13 13:41] LABS: APPEARANCE, URINE HAZY (CLEAR); BACTERIA, URINE AUTO 1+ (NEGATIVE); BILIRUBIN, URINE AUTO NEGATIVE (NEGATIVE); BLOOD, URINE BLOOD NEGATIVE (NEGATIVE); COLOR, URINE YELLOW (YELLOW); GLUCOSE, URINE (UA) AUTO NEGATIVE (NEGATIVE); KETONE, URINE AUTO NEGATIVE (NEGATIVE); LEUKOCYTE ESTERASE, URINE AUTO TRACE (NEGATIVE); MUCUS, URINE SMALL (NEGATIVE); NITRITE, URINE AUTO POSITIVE (NEGATIVE); PROTEIN, URINE AUTO NEGATIVE (NEGATIVE); RBC, URINE AUTO 1 /HPF (0-3); SPECIFIC GRAVITY URINE AUTO 1.012 (1.002-1.035); SQUAMOUS EPITHELIAL CELL UR AU 0 /HPF (0-6); UROBILINOGEN, URINE AUTO 0.2 mg/dL (0.0-2.0); WBC, URINE AUTO 8 /HPF (0-3)
== END ==
LOC: SKLAB8 12:16
PROVIDERS: ATTEND Internal Medicine
DX: R30.9 Painful micturition, unspecified (principal); R41.0 Disorientation, unspecified

== ENCOUNTER → 2023-04-18 | Outpatient (REF) | payer MEDICARE ==
[2023-04-18 12:28] LABS: HEMATOCRIT 31.9 % (36.0-47.0); HEMOGLOBIN 10.5 g/dl (12.0-15.5); MEAN CORPUSCULAR HEMOGLOBIN 28.8 pg (27.0-33.0); MEAN CORPUSCULAR HGB CONC 32.9 g/dl (32.0-36.5); MEAN CORPUSCULAR VOLUME 87.4 fl (80.0-96.0); PLATELET COUNT, AUTOMATED 289 10^3/uL (150-450); RED BLOOD COUNT 3.65 10^6/uL (4.00-5.40); WHITE BLOOD COUNT 6.7 10^3/uL (4.0-10.0)
[2023-04-18 12:40] LABS: BLOOD UREA NITROGEN 16 MG/DL (9-23); CALCIUM LEVEL 8.8 MG/DL (8.3-10.6); CARBON DIOXIDE LEVEL 24 MMOL/L (20-31); CHLORIDE LEVEL 105 MMOL/L (98-107); GLOMERULAR FILTRATION RATE > 60.0 (>32); GLUCOSE, FASTING 136 MG/DL (74-106); POTASSIUM SERUM 4.3 MMOL/L (3.5-5.1); SODIUM LEVEL 139 MMOL/L (136-145)
== END ==
LOC: SKLAB8 11:24
PROVIDERS: ATTEND Nurse Practitioner
DX: N39.0 Urinary tract infection, site not specified (principal)

== ENCOUNTER → 2023-04-18 | Outpatient (REF) | payer MEDICARE | LOC: SKLAB8 22:00 | PROVIDERS: ATTEND Internal Medicine | DX: M51.36 Other intervertebral disc degeneration, lumbar region (principal); S00.531A Contusion of lip, initial encounter; S60.032A Contusion of left middle finger without damage to nail, initial encounter; S50.12XA Contusion of left forearm, initial encounter; X58.XXXA Exposure to other specified factors, initial encounter; Y92.9 Unspecified place or not applicable; Y93.9 Activity, unspecified; Y99.9 Unspecified external cause status ==

== ENCOUNTER → 2023-04-21 | Outpatient (REF) | payer MEDICARE | LOC: SKLAB8 13:05 | PROVIDERS: ATTEND Internal Medicine | DX: M25.512 Pain in left shoulder (principal); W19.XXXA Unspecified fall, initial encounter; Y92.129 Unspecified place in nursing home as the place of occurrence of the external cause; N39.0 Urinary tract infection, site not specified; E86.0 Dehydration ==

== ENCOUNTER → 2023-04-21 | Outpatient (REF) | payer MEDICARE ==
[2023-04-21 09:30] LABS: BLOOD UREA NITROGEN 11 MG/DL (9-23); CALCIUM LEVEL 8.6 MG/DL (8.3-10.6); CARBON DIOXIDE LEVEL 27 MMOL/L (20-31); CHLORIDE LEVEL 105 MMOL/L (98-107); GLOMERULAR FILTRATION RATE > 60.0 (>32); GLUCOSE, FASTING 94 MG/DL (74-106); SODIUM LEVEL 139 MMOL/L (136-145)
[2023-04-21 09:39] LABS: HEMATOCRIT 34.1 % (36.0-47.0); MEAN CORPUSCULAR HEMOGLOBIN 28.6 pg (27.0-33.0); MEAN CORPUSCULAR HGB CONC 32.3 g/dl (32.0-36.5); MEAN CORPUSCULAR VOLUME 88.8 fl (80.0-96.0); PLATELET COUNT, AUTOMATED 342 10^3/uL (150-450); RED BLOOD COUNT 3.84 10^6/uL (4.00-5.40)
== END ==
LOC: SKLAB8 08:51
PROVIDERS: ATTEND Internal Medicine
DX: N39.0 Urinary tract infection, site not specified (principal); E86.0 Dehydration

== ENCOUNTER → 2023-04-23 | Outpatient (REF) | payer MEDICARE | LOC: SKLAB8 15:06 | PROVIDERS: ATTEND Nurse Practitioner | DX: S62.501A Fracture of unspecified phalanx of right thumb, initial encounter for closed fracture (principal); M19.041 Primary osteoarthritis, right hand; M19.031 Primary osteoarthritis, right wrist; W19.XXXA Unspecified fall, initial encounter; Y92.129 Unspecified place in nursing home as the place of occurrence of the external cause; Y93.9 Activity, unspecified ==

== ENCOUNTER → 2023-05-24 | Outpatient (REF) | payer MEDICARE ==
[2023-05-24 04:54] LABS: APPEARANCE, URINE HAZY (CLEAR); BACTERIA, URINE AUTO 3+ (NEGATIVE); BILIRUBIN, URINE AUTO NEGATIVE (NEGATIVE); BLOOD, URINE BLOOD NEGATIVE (NEGATIVE); COLOR, URINE YELLOW (YELLOW); GLUCOSE, URINE (UA) AUTO NEGATIVE (NEGATIVE); KETONE, URINE AUTO NEGATIVE (NEGATIVE); LEUKOCYTE ESTERASE, URINE AUTO 3+ (NEGATIVE); MUCUS, URINE SMALL (NEGATIVE); NITRITE, URINE AUTO POSITIVE (NEGATIVE); PROTEIN, URINE AUTO NEGATIVE (NEGATIVE); RBC, URINE AUTO 3 /HPF (0-3); SPECIFIC GRAVITY URINE AUTO 1.006 (1.002-1.035); SQUAMOUS EPITHELIAL CELL UR AU 1 /HPF (0-6); UROBILINOGEN, URINE AUTO 0.2 mg/dL (0.0-2.0); WBC, URINE AUTO 37 /HPF (0-3)
== END ==
LOC: SKLAB8 02:00
PROVIDERS: ATTEND Internal Medicine
DX: R53.83 Other fatigue (principal); R41.82 Altered mental status, unspecified

== ENCOUNTER → 2023-06-27 | Outpatient (CLI) | payer MEDICARE, MEDICAID | LOC: M RAD 09:54 | PROVIDERS: ATTEND Nurse Practitioner Adult Health | DX: F03.90 Unspecified dementia, unspecified severity, without behavioral disturbance, psychotic disturbance, mood disturbance, and anxiety (principal) ==

== ENCOUNTER → 2023-08-04 | Outpatient (REF) | payer MEDICARE, MEDICAID ==
[~2023-08-04] MED LIST changes: +ATIV1TAB10 PO; +BUSP15TA47 PO; +HYOS125TA PO; +META28.32 PO; +MORP1SOL5 PO; +OCUVTAB4 PO; +SERT50TA29 PO; +VITA500045 PO; +[UNRECOGNIZED DRUG - CODE] OU
[2023-08-04 10:02] LABS: HEMATOCRIT 34.1 % (36.0-47.0); HEMOGLOBIN 11.6 g/dl (12.0-15.5); MEAN CORPUSCULAR VOLUME 85.3 fl (80.0-96.0); PLATELET COUNT, AUTOMATED 308 10^3/uL (150-450); WHITE BLOOD COUNT 11.3 10^3/uL (4.0-10.0)
[2023-08-04 10:27] LABS: ALBUMIN 2.9 G/DL (3.2-5.2); ALKALINE PHOSPHATASE 92 U/L (46-116); ALT/SGPT 22 U/L (7.0-40); AST/SGOT 39 U/L (<34); BILIRUBIN,TOTAL 0.7 MG/DL (0.3-1.2); BLOOD UREA NITROGEN 17 MG/DL (9-23); CALCIUM LEVEL 8.7 MG/DL (8.3-10.6); CARBON DIOXIDE LEVEL 26 MMOL/L (20-31); CHLORIDE LEVEL 102 MMOL/L (98-107); GLOMERULAR FILTRATION RATE > 60.0 (>32); GLUCOSE, FASTING 119 MG/DL (74-106); POTASSIUM SERUM 4.3 MMOL/L (3.5-5.1); SODIUM LEVEL 136 MMOL/L (136-145); TOTAL PROTEIN 5.6 G/DL (5.7-8.2)
== END ==
LOC: SKLAB6 08:39 → SKLAB8 08:39
PROVIDERS: ATTEND Internal Medicine
DX: R29.810 Facial weakness (principal); R53.1 Weakness